=== PATIENT | male | born 1945 | race Caucasian/White ===

== ENCOUNTER 2019-10-31 15:35 | Outpatient (CLI) | payer MEDICARE, OTHER, SELFPAY ==
[2019-10-31 17:14] LABS: Alanine Aminotransferase 18 U/L (16-63); Albumin Level 3.7 g/dL (3.4-5.0); Alkaline Phosphatase 127 U/L (46-116); Anion Gap 12.9 mmol/L (7-16); Aspartate Amino Transferase 13 U/L (15-37); Bilirubin,Total 0.3 mg/dL (0.00-1.00); Blood Urea Nitrogen 21 mg/dL (7-18); Calcium 9.4 mg/dL (8.5-10.1); Carbon Dioxide 29 mmol/L (21-32); Chloride 103 mmol/L (98-108); Estimated Glomerular Filt Rate 60; Glucose 105 mg/dL (70-99); Osmolality Calculated 293 mOsm/kg (285-295); Potassium 4.9 mmol/L (3.5-5.1); Prostate Specific Antigen 4.3 ng/mL (< OR = 4.0); Sodium 140 mmol/L (136-145); Total Protein 7.2 g/dL (6.4-8.2)
== END 2019-10-31 15:36 | disposition home or self-care (01) ==
LOC: CHSLAB 15:41
PROVIDERS: PCP Nurse Practitioner Family; Visit Provider Urology
DX: R97.20 Elevated prostate specific antigen [PSA] (principal); N40.1 Benign prostatic hyperplasia with lower urinary tract symptoms
CPT/HCPCS: 36415; 80053; 84153

== ENCOUNTER 2020-02-06 08:55 | Outpatient (CLI) | payer MEDICARE, OTHER, SELFPAY ==
--- NOTE | ~2020-02-06 | CT_ITS ---
EXAMINATION:CT lung screening DATE: 02/06/2020 09:17 INDICATION: Personal history of tobacco dependence. Current smoker with 40 pack year history. TECHNIQUE: Computed tomography (CT) of the chest was performed without intravenous contrast. Automate d exposure control and iterative reconstruction technique were employed. The dose-length product (DLP ) was 361.24 mGy-cm. COMPARISON: Chest CT 06/27/2018 FINDINGS: There is mild emphysema. There is mild atelectasis bilaterally. There is a chronic 5 mm laith undglass nodule in right upper lobe. There is a chronic 4 mm groundglass nodule in left upper lobe. N o pleural effusion. The heart size is normal. No pericardial effusion. There are coronary artery calc ifications. There is bilateral gynecomastia. There is moderate thoracic spondylosis and severe lumbar spondylosis. IMPRESSION: 1. Lung-RADS category 2: Benign appearance or behavior. Continue annual screening with noncontrast lo w-dose chest CT in 12 months. Reviewed, dictated and finalized at location A. IMPRESSION: 1. Lung-RADS category 2: Benign appearance or behavior. Continue annual screeni ng with noncontrast low-dose chest CT in 12 months.
== END 2020-02-06 08:56 | disposition home or self-care (01) ==
PROVIDERS: PCP Nurse Practitioner Family; Visit Provider Nurse Practitioner Family
DX: Z12.2 Encounter for screening for malignant neoplasm of respiratory organs (principal); Z87.891 Personal history of nicotine dependence; R91.1 Solitary pulmonary nodule
CPT/HCPCS: G0297

== ENCOUNTER 2020-12-25 15:36 | Outpatient (CLI) | payer MEDICARE, OTHER, SELFPAY ==
[2020-12-25 17:04] LABS: Alanine Aminotransferase 21 U/L (16-63); Albumin Level 3.8 g/dL (3.4-5.0); Alkaline Phosphatase 128 U/L (46-116); Anion Gap 8 mmol/L (8-16); Aspartate Amino Transferase 12 U/L (15-37); Bilirubin,Total 0.3 mg/dL (0.00-1.00); Blood Urea Nitrogen 22 mg/dL (7-18); Calcium 9.8 mg/dL (8.5-10.1); Carbon Dioxide 30 mmol/L (21-32); Chloride 97 mmol/L (98-108); Estimated Glomerular Filt Rate 51; Glucose 89 mg/dL (70-99); Osmolality Calculated 282 mOsm/kg (285-295); Prostate Specific Antigen 3.8 ng/mL (< OR = 4.0); Sodium 135 mmol/L (136-145); Total Protein 7.8 g/dL (6.4-8.2)
== END 2020-12-25 15:37 | disposition home or self-care (01) ==
LOC: CHSLAB 15:41
PROVIDERS: PCP Nurse Practitioner Family; Visit Provider Urology
DX: R97.20 Elevated prostate specific antigen [PSA] (principal); N40.1 Benign prostatic hyperplasia with lower urinary tract symptoms
CPT/HCPCS: 36415; 80053; 84153

== ENCOUNTER 2021-08-10 14:20 | Outpatient (CLI) | payer MEDICARE, OTHER, SELFPAY ==
--- NOTE | 2021-08-10 14:22 | ECG_ITS ---
Measurements Intervals [place] Rate: 78 P: 71 AR: 192 QRS: 173 QRSD: 109 T: 74 QT: 386 QTc: 441 Interpretive Statements SINUS RHYTHM BORDERLINE R WAVE PROGRESSION, ANTERIOR LEADS BASELINE ARTIFACT- I, III, AVL BORDERLINE ECG Electronically Signed On 08-10-2021 15:08:23 LEGAL MANAGER by Javier Odonnell D.O.
== END 2021-08-10 14:21 | disposition home or self-care (01) ==
PROVIDERS: PCP Nurse Practitioner Family; Visit Provider Internal Medicine Cardiovascular Disease
DX: I25.10 Atherosclerotic heart disease of native coronary artery without angina pectoris (principal)
CPT/HCPCS: 93005

== ENCOUNTER 2021-08-20 10:26 | Outpatient (CLI) | payer MEDICARE, OTHER, SELFPAY ==
--- NOTE | 2021-08-20 10:28 | ECHO_ITS ---
Patient Info Name: Rony Ferreira Age: 75 years : 1945 Gender: Male Ht: 70 in Wt: 273 lbs BSA: 2.53 m2 HR: 70 bpm BP: 138 / 68 mmHg Technical Quality: Fair Exam Date: 08/20/2021 11:54 AM Exam Location: [facility] Patient Status: Outpatient Admit Date: 08/20/2021 Staff Ordering Physician: Javier Odonnell DO Computer Support Specialist: Sara Vargas Attending Provider: Javier Odonnell DO Referring Physician: Blas MARINELLI; Exam Type: CA echo doppler color flow Study Info Indications R06.00 - Dyspnea, unspecified Complete two-dimensional, color flow and Doppler transthoracic echocardiogram is performed. Summary 1. Complete two-dimensional, color flow and Doppler transthoracic echocardiogram is performed. 2. Left ventricular chamber dimension is normal. 3. Left ventricular systolic function is normal, estimated at 55-60%. 4. There is mildly increased left ventricular wall thickness. 5. The left ventricular diastolic function is grade I diastolic dysfunction. 6. E/e' 9 is minimally elevated. 7. No pulmonary hypertension, estimated pulmonary arterial systolic pressure is 26 mmHg. Left Ventricle E/e' 9 is minimally elevated. Left ventricular chamber dimension is normal. Left ventricular systolic function is normal, estimated at 55-60%. There is mildly increased left ventricular wall thickness. The left ventricular diastolic function is grade I diastolic dysfunction. Right Ventricle Right ventricular systolic function is normal and with normal TAPSE 2.2 cm. Right ventricular chamber dimension is normal. Left Atria Left atrial chamber dimension is normal. Right Atria Right atrial chamber dimension is normal. Aortic Valve The aortic valve is trileaflet. There is no aortic valve stenosis. There is no aortic valve regurgitation. Pulmonic Valve There is no pulmonic regurgitation. Mitral Valve There is no mitral valve stenosis. There is no mitral valve regurgitation. Tricuspid Valve There is no tricuspid valve regurgitation. No pulmonary hypertension, estimated pulmonary arterial systolic pressure is 26 mmHg. Pericardium/Pleural There is no pericardial effusion. Inferior Vena Cava Normal inferior vena cava with >50% collapse upon inspiration consistent with normal right atrial pressure, 5 mmHg. Aorta The aortic root size at the sinus of Valsalva is normal. Left Ventricular Outflow Tract Name Value Normal LVOT 2D LVOT Diameter 2.0 cm LVOT Doppler LVOT Peak Velocity 91 cm/s LVOT Peak Gradient 3 mmHg LVOT Mean Gradient 2 mmHg LVOT VTI 20 cm LVOT VTI/AV VTI Ratio 0.8 LVOT Stroke Volume 64 ml Mitral Valve Name Value Normal MV Doppler MV Decel [place] 355
[2021-08-20 11:15] LABS: Alanine Aminotransferase 14 U/L (16-63); Albumin Level 3.4 g/dL (3.4-5.0); Alkaline Phosphatase 143 U/L (46-116); Anion Gap 10 mmol/L (8-16); Aspartate Amino Transferase 11 U/L (15-37); Bilirubin,Total 0.3 mg/dL (0.00-1.00); Blood Urea Nitrogen 15 mg/dL (7-18); Calcium 9.1 mg/dL (8.5-10.1); Carbon Dioxide 28 mmol/L (21-32); Chloride 103 mmol/L (98-108); Cholesterol 83 mg/dL (0-200); Estimated Glomerular Filt Rate 58; Glucose 113 mg/dL (70-99); HDL Direct 34 mg/dL (40-60); LDL Cholesterol Calculated 30 mg/dL (<130); Osmolality Calculated 293 mOsm/kg (285-295); Potassium 4.3 mmol/L (3.5-5.1); Sodium 141 mmol/L (136-145); Total Protein 6.8 g/dL (6.4-8.2); Triglycerides 97 mg/dL (0-150)
== END 2021-08-20 10:27 | disposition home or self-care (01) ==
LOC: CHSIMG 10:28
PROVIDERS: PCP Nurse Practitioner Family; Visit Provider Internal Medicine Cardiovascular Disease
DX: E78.5 Hyperlipidemia, unspecified (principal); R06.00 Dyspnea, unspecified
CPT/HCPCS: 36415; 80053; 80061; 93306

== ENCOUNTER 2021-10-28 20:01 | Outpatient (CLI) | payer MEDICARE, OTHER, SELFPAY ==
--- NOTE | 2021-11-03 13:29 | WPDSLEEPSTUD ---
Sleep Study Date of Study: 10/28/21 Ordering Provider: Javier Odonnell DO Interpreting Physician: Kathy Luong MD Sleep Study Type: Polysomnogram Height: 1.83 m Weight: 127.006 kg Body Mass Index: 38.0 Neck Circumference (inches): 19.5 [place]: 7 Reason for Sleep Study Disrupted sleep, nighttime awakenings, daytime naps Sleep History Rony Platt is a 75-year-old man with a history of COPD. He was referred by his share holder because he has non restorative sleep. He wakes up throughout the night and has excessive daytime sleepiness. He occasionally awakens from sleep feeling short of breath. He rarely awakens at night with heartburn, belching or coughing. He rarely snores and rarely snores loudly enough that others complain about it. He rarely has trouble sleeping with a cold. He occasionally wakes up gasping for breath at night. He occasionally has breathing problems at night observed by others. He rarely sweats excessively at night. He does not notice his heart pounding or beating irregularly at night. He occasionally falls asleep during the day, rarely involuntarily, never while driving. He rarely has loss of muscle tone with strong emotion. He does not have daytime give difficulties due to excessive sleepiness or the feeling of paralysis on waking or falling asleep. He does not have vivid dreamlike scenes upon awakening or falling asleep. He frequently feels afraid to go to sleep. He occasionally has nightmares, occasionally remembers his dreams and occasionally has racing thoughts. He occasionally feels sad or depressed. He rarely has anxiety. He rarely has muscular tension. He does not notice parts of his body jerking and he does not kick at night. He occasionally has crawling and aching feelings in his legs. He occasionally has leg pain at night. He denies morning jaw pain. Occasionally grinds his teeth during sleep. He rarely is bothered by pain during the day, never awakened by pain at night. Occasionally wakes up feeling stiff in the morning with sore achy muscles and pain in the neck and spine. Has depression, sexual problems and fatigue. Normal bedtime is between 2:00 a.m. and 3:00 a.m., taking 20 minutes to fall asleep typically waking 2 or 3 times overnight. When he does awaken he may stay awake for 1 hour. He will go to the bathroom and smokes cigarettes. He wakes the morning at 8:00 a.m.. His weekend schedule is the same. He estimates getting between 4 and 6 hours of sleep at night. he takes naps throughout the day. A short nap is not refreshing. He is usually drowsy for 2 hours after waking. Habits: Tobacco 1 and half packs per day; caffeine 4 cups per day. Occasional alcohol. No recreational drugs. COUNTS INCLUDE 234 BEDS AT THE [facility] Past Medical History Medical History (Updated 11/03/21 @ 14:47 by Kathy Luong MD) Abdominal aortic aneurysm (AAA) Constipation COPD (chronic obstructive pulmonary disease) Elevated PSA HTN (hypertension) Male erectile dysfunction Osteoarthritis Ruptured disc, cervical Sinusitis Tobacco dependence Surgical History Surgical History History of appendectomy Age 15 History of coronary artery stent placement Family History Family History Other Unknown family medical history Social History Social History Smoking packs per day: 1.5 Smoking cigarettes per day: 30.0 Smoking status: Current every day smoker Tobacco type: cigarettes Alcohol intake: current Substance use: never Substance use type: does not use Gender identity (if verbalized by the patient): Male Medications Home Medications Medication Instructions Recorded Confirmed Type albuterol sulfate 90 mcg/actuation 1 puff INHALATION Q4H PRN 10/03/19 10/14/21 History aerosol inhaler aspirin 81 mg tablet,delayed 81 mg PO DAILY 0
[2021-11-03 14:49] VITALS: BMI 38.0
== END 2021-10-29 19:49 | disposition home or self-care (01) ==
LOC: CHSCSM 20:03
PROVIDERS: PCP Nurse Practitioner Family; Visit Provider Internal Medicine Cardiovascular Disease
DX: G47.10 Hypersomnia, unspecified (principal)
CPT/HCPCS: 95810

== ENCOUNTER 2021-12-24 14:06 | Outpatient (CLI) | payer MEDICARE, SELFPAY ==
[2021-12-24 15:39] LABS: Alanine Aminotransferase 16 U/L (16-63); Albumin Level 3.6 g/dL (3.4-5.0); Alkaline Phosphatase 138 U/L (46-116); Anion Gap 8 mmol/L (8-16); Aspartate Amino Transferase 14 U/L (15-37); Bilirubin,Total 0.4 mg/dL (0.00-1.00); Blood Urea Nitrogen 15 mg/dL (7-18); Calcium 9.5 mg/dL (8.5-10.1); Carbon Dioxide 29 mmol/L (21-32); Chloride 99 mmol/L (98-108); Estimated Glomerular Filt Rate 55; Glucose 97 mg/dL (70-99); Osmolality Calculated 282 mOsm/kg (285-295); Potassium 4.9 mmol/L (3.5-5.1); Prostate Specific Antigen 3.6 ng/mL (< OR = 4.0); Sodium 136 mmol/L (136-145); Total Protein 6.9 g/dL (6.4-8.2)
== END 2021-12-24 14:07 | disposition home or self-care (01) ==
LOC: CHSLAB 14:08
PROVIDERS: PCP Nurse Practitioner Family; Visit Provider Urology
DX: N40.1 Benign prostatic hyperplasia with lower urinary tract symptoms (principal)
CPT/HCPCS: 36415; 80053; 84153

== ENCOUNTER 2021-12-31 10:25 | Outpatient (CLI) | payer MEDICARE, OTHER, SELFPAY ==
--- NOTE | ~2021-12-31 | CT_ITS ---
EXAMINATION: CT lung screening DATE: 12/31/2021 10:54 INDICATION: Personal history of nicotine dependence, current smoker with 75 pack year history TECHNIQUE: Computed tomography (CT) of the chest was performed without intravenous contrast. The dose -length product (DLP) was 357.89 mGy-cm. Automated exposure control and iterative reconstruction tech [employer] were employed. COMPARISON: 02/06/2020 FINDINGS: There is mild emphysema. There is mild atelectasis. A chronic 5 mm nodule is present in the left upper lobe. There is a 2 mm nodule in the left upper lobe on image 58. A previously described g roundglass nodule of the left upper lobe not definitely identified. The lungs are free of focal airsp trace opacities. There is no pleural effusion or pneumothorax. No pathologically enlarged thoracic lymp h nodes are identified. The heart size is normal. Calcified coronary artery atherosclerosis is noted. There is moderate thoracic spondylosis. Stable low-attenuation masses of the adrenal glands are cons istent with adenomas. IMPRESSION: 1. Lung-RADS category 2: Benign appearance or behavior. Continue annual screening with noncontrast lo w-dose chest CT in 12 months. Reviewed, dictated and finalized at location F. IMPRESSION: 1. Lung-RADS category 2: Benign appearance or behavior. Continue annual screeni ng with noncontrast low-dose chest CT in 12 months.
== END 2021-12-31 10:26 | disposition home or self-care (01) ==
LOC: CHSIMG 10:28
PROVIDERS: PCP Nurse Practitioner Family; Visit Provider Nurse Practitioner Family
DX: Z12.2 Encounter for screening for malignant neoplasm of respiratory organs (principal); Z87.891 Personal history of nicotine dependence
CPT/HCPCS: 71271

== ENCOUNTER 2022-11-16 12:33 | Outpatient (CLI) | payer MEDICARE, OTHER, SELFPAY ==
--- NOTE | ~2022-11-16 | US_ITS ---
EXAMINATION: US arterial ankle brachial ind DATE: 11/16/2022 14:07 INDICATION: Swelling and erythema at the right calf and foot. TECHNIQUE: Segmental pressures and plethysmographic and Doppler waveforms of the brachial and lower e xtremity arteries were obtained. COMPARISON: None. FINDINGS: Right and left brachial artery pressures of 112 mm Hg and 101 mm Hg, respectively, are concordant (no rmal difference <= 30 mmHg). The right ankle-brachial index (CHRIS) is 1.27 (normal >= 0.9-1.0). The right great toe-brachial index (TBI) is 0.54 (normal >= 0.65). Arterial Doppler waveforms are triphasic with brisk systolic upstroke s at both right posterior tibial and dorsalis pedis arteries. The left CHRIS is 1.13. The left TBI is 0.89. Arterial Doppler waveforms are biphasic with brisk systol ic upstrokes at both left posterior tibial and dorsalis pedis arteries. IMPRESSION: 1. Mild arterial occlusive disease to the right lower limb with normal right CHRIS but mildly decreased right TBI. 2. No significant arterial occlusive disease to the left lower limb with normal left CHRIS and TBI. Reviewed, dictated and finalized at location L. IMPRESSION: 1. Mild arterial occlusive disease to the right lower limb with normal right AB I but mildly decreased right TBI. 2. No significant arterial occlusive disease to the left lower limb with normal left CHRIS and TBI.
--- NOTE | ~2022-11-16 | US_ITS ---
EXAMINATION: US venous doppler LE RT DATE: 11/16/2022 14:07 INDICATION: Right calf and foot redness and swelling. TECHNIQUE: Grayscale images without and with compression and Doppler images of the right lower extrem ity veins were obtained. COMPARISON: None FINDINGS: The right common femoral vein, profunda (deep) femoral vein, femoral vein, popliteal vein, peroneal v ein, posterior tibial veins, gastrocnemius vein, and greater saphenous vein are patent. IMPRESSION: 1. Patent right lower extremity veins. No evidence of deep venous thrombosis. Reviewed, dictated and finalized at location K.
--- NOTE | ~2022-11-16 | US_ITS ---
EXAMINATION: US arterial duplex LE RT DATE: 11/16/2022 14:07 INDICATION: Other specified soft tissue disorders. Right calf redness and erythema. TECHNIQUE: Multiple grayscale and Doppler ultrasound images of the right lower limb were obtained. COMPARISON: None FINDINGS: Peak systolic velocity is 100 cm/s in right common femoral artery, 64 cm per sec in right p rofunda femoral artery, 92 cm/s in proximal superficial femoral artery, 74 cm/s in mid superficial fe moral artery, and 69 cm/s in distal superficial femoral artery, 78 cm/s in popliteal artery, 71 cm/s in posterior tibial artery, 62 cm/s anterior tibial artery, and 95 cm/s in peroneal artery. IMPRESSION: 1. No significant arterial occlusive disease. Reviewed, dictated and finalized at location A.
== END 2022-11-16 12:34 | disposition home or self-care (01) ==
LOC: CHSIMG 12:37
PROVIDERS: PCP Nurse Practitioner Family; Visit Provider Internal Medicine Cardiovascular Disease
DX: L53.9 Erythematous condition, unspecified (principal); M79.89 Other specified soft tissue disorders
CPT/HCPCS: 93922; 93926; 93971

== ENCOUNTER 2023-01-03 10:06 | Outpatient (CLI) | payer MEDICARE, OTHER, SELFPAY ==
--- NOTE | ~2023-01-03 | CT_ITS ---
EXAMINATION: CT lung screening DATE: 01/03/2023 10:43 INDICATION: hx of lung nodule. yearly follow up. [place],COPD,CHRONIC SOB TECHNIQUE: Computed tomography (CT) of the chest was performed without intravenous contrast. Addition al 3D reconstructions utilizing coronal maximum intensity projection (MIP) were performed. Automated exposure control and iterative reconstruction technique were employed. The dose-length product was 30 9.64 mGy-cm. COMPARISON: 12/31/2021 FINDINGS: Mild emphysema. Unchanged chronic discoid atelectasis/scarring at the lingula and at the posterior carpio lcus of the right lower lobe. Interval increase in size of a previously 6-7 mm subsolid appearing nod ule along a very small band of discoid atelectasis in the anterior right middle lobe now measuring 8 mm with spiculated margins and with more solid appearance. No interval change in a 2-3 mm left upper lobe nodule on image 52 or the 4-5 mm pleural-based along the posterior superior segment of the right lower lobe on image 60. No new pulmonary nodules, pneumonia, pulmonary edema, pleural effusion or pn eumothorax. Heart size is normal. Atherosclerotic coronary artery calcific lesions. No pericardial ef fusion. Thoracic aorta is normal in caliber. No pathologically enlarged thoracic lymphadenopathy. Unc hanged small low-attenuation bilateral adrenal adenomas, the larger on the right measuring 1.5 cm. Se jay spondylosis in the lower thoracic and upper lumbar spine. IMPRESSION: 1. Interval enlargement of a now 8 mm solid-appearing, previously 6-7 mm subsolid appearing nodule in the right middle lobe, Lung-RADS category 4X: (Very suspicious, >15% chance of malignancy) PET-CT an d/or tissue sampling with CT-guided percutaneous biopsy depending on probably of malignancy and comor bidities. Reviewed, dictated and finalized at location B. IMPRESSION: 1. Interval enlargement of a now 8 mm solid-appearing, previously 6-7 mm subsol id appearing nodule in the right middle lobe, Lung-RADS category 4X: (Very susp icious, >15% chance of malignancy) PET-CT and/or tissue sampling with CT-guided percutaneous biopsy depending on probably of malignancy and comorbidities.
== END 2023-01-03 10:07 | disposition home or self-care (01) ==
LOC: CHSIMG 10:07
PROVIDERS: PCP Nurse Practitioner Family; Visit Provider Nurse Practitioner Family
DX: Z12.2 Encounter for screening for malignant neoplasm of respiratory organs (principal); Z87.891 Personal history of nicotine dependence; R91.8 Other nonspecific abnormal finding of lung field
CPT/HCPCS: 71271

== ENCOUNTER 2023-01-11 12:58 | Outpatient (CLI) | payer MEDICARE, OTHER, SELFPAY ==
--- NOTE | ~2023-01-11 | PE_ITS ---
EXAMINATION: PET skull to mid thigh DATE: 01/11/2023 15:23 INDICATION: Enlarging pulmonary nodule TECHNIQUE: Blood glucose level was 122 mg/dL. 11.069 mCi of 18-fluorodeoxyglucose (18-FDG) was admini stered i.v. Low dose computed tomography (CT) images were acquired from the base of the brain to the proximal thighs for attenuation correction and anatomic localization. Positron emission tomography (P ET) images were acquired in the same distribution beginning 59 minutes after injection. Images includ ing fused PET/CT images were reconstructed in axial, coronal, and sagittal planes. Automated exposure control technique was employed. The dose-length product was 1233.32mGy-cm. COMPARISON: None FINDINGS: Head/neck: There is relatively symmetric increased activity in the oral cavity, palatine tonsils, parotid glands and submandibular glands without CT correlate, likely physiologic. There is additional likely physio logic relatively symmetric muscular activity most prominent in the muscles of mastication as well as the tongue including extending posteriorly along the right base of the tongue but also involving the ocular muscles, laryngeal muscles and posterior cervical paraspinal muscles right slightly greater th an left. No pathologically enlarged cervical lymphadenopathy or suspicious foci of increased FDG upta ke in the visualized head or neck. Severe lower cervical spondylosis. No suspicious lytic, blastic or abnormally FDG avid bone lesions. Chest: There is additional extensive likely physiologic muscular activity throughout the thoracic paraspinal musculature as well as the musculature of the shoulder girdles, left greater than right. Synovial up take at the left glenohumeral joint which likely reactive related to the severe left glenohumeral ost eoarthritis. There is no discernible FDG activity associated with the millimeter right middle lobe no dule. Linear band of discoid atelectasis without FDG activity at the lingula. Heart size is normal. N o pericardial effusion. No pathologically enlarged or FDG avid thoracic lymphadenopathy. Bilateral gy necomastia. Moderate to severe thoracic spondylosis. No suspicious lytic, blastic or abnormally FDG a vid bone lesions. Abdomen/pelvis/proximal thighs: Physiologic renal accumulation and excretion of FDG activity in the kidneys, bladder and along portio ns of ureters. Normal degree and heterogenous pattern of increased uptake throughout the liver withou t radiologic correlate or dominant FDG avid lesion. The gallbladder, pancreas, and spleen are normal. No abnormal uptake associated with bilateral small low-attenuation adrenal adenomas the largest on t he right measuring 1.5 cm. Mild uptake scattered throughout the bowels without radiologic correlate, also likely physiologic. Infrarenal aortobiiliac endoluminal stent grafting. No associated aneurysm. Additional likely physiologic muscular activity in the bilateral gluteal musculature and the musculat ure at the bilateral hands and forearms. No other abnormal foci of increased FDG uptake or pathologic ally enlarged lymphadenopathy in the abdomen, pelvis or proximal thighs. Moderate to severe lumbar sp ondylosis. Severe right hip osteoarthritis. No suspicious lytic, blastic or abnormally FDG avid bone lesions. IMPRESSION: 1. No discernible FDG activity associated with the 8 mm right middle lobe nodule. While reassuring th is does not absolutely exclude malignancy and would recommend continued radiographic follow-up with l ow-dose noncontrast chest CT in 6 months. Reviewed, dictated and finalized at location A. IMPRESSION: 1. No discernible FDG activity associated with the 8 mm right middle lobe nodul e. While reassuring this does not absolutely exclude malignancy and would recom mend continued radiog
[2023-01-11 13:54] LABS: Glucose Point of Care 122 mg/dl (65-105)
== END 2023-01-11 12:59 | disposition home or self-care (01) ==
PROVIDERS: PCP Nurse Practitioner Family; Visit Provider Nurse Practitioner Family
DX: R91.1 Solitary pulmonary nodule (principal)
CPT/HCPCS: 78815; A9552

== ENCOUNTER 2023-01-19 14:10 | Outpatient (CLI) | payer MEDICARE, OTHER, SELFPAY ==
[2023-01-19 15:03] LABS: Alanine Aminotransferase 16 U/L (16-63); Albumin Level 3.6 g/dL (3.4-5.0); Alkaline Phosphatase 126 U/L (46-116); Anion Gap 6 mmol/L (8-16); Aspartate Amino Transferase 14 U/L (15-37); Bilirubin,Total 0.3 mg/dL (0.00-1.00); Blood Urea Nitrogen 24 mg/dL (7-18); Calcium 9.8 mg/dL (8.5-10.1); Carbon Dioxide 32 mmol/L (21-32); Chloride 99 mmol/L (98-108); Estimated Glomerular Filt Rate 47; Glucose 120 mg/dL (70-99); Osmolality Calculated 289 mOsm/kg (285-295); Potassium 4.9 mmol/L (3.5-5.1); Prostate Specific Antigen 5.5 ng/mL (< OR = 4.0); Sodium 137 mmol/L (136-145); Total Protein 7.2 g/dL (6.4-8.2)
== END 2023-01-19 14:11 | disposition home or self-care (01) ==
LOC: CHSLAB 14:14
PROVIDERS: PCP Nurse Practitioner Family; Visit Provider Urology
DX: N40.1 Benign prostatic hyperplasia with lower urinary tract symptoms (principal)
CPT/HCPCS: 36415; 80053; 84153

== ENCOUNTER 2023-05-16 10:42 | Outpatient (CLI) | payer MEDICARE, SELFPAY ==
[2023-05-16 11:21] LABS: Cholesterol 140 mg/dL (0-200); HDL Direct 36 mg/dL (40-60); LDL Cholesterol Calculated 75 mg/dL (<130); Triglycerides 143 mg/dL (0-150)
== END 2023-05-16 10:43 | disposition home or self-care (01) ==
LOC: CHSLAB 10:44
PROVIDERS: PCP Nurse Practitioner Family; Visit Provider Internal Medicine Cardiovascular Disease
DX: I25.10 Atherosclerotic heart disease of native coronary artery without angina pectoris (principal)
CPT/HCPCS: 36415; 80061

== ENCOUNTER 2023-09-29 15:23 | Outpatient (CLI) | payer MEDICARE, SELFPAY ==
[2023-09-29 15:32] LABS: Basophils Absolute Auto 0.05 K/mm3 (0.00-0.10); Basophils Percent Auto 0.5 % (0.0-1.0); Eosinophils Percent Auto 0.9 % (1.0-6.0); Hematocrit 38.3 % (37.0-46.0); Immature Granulocyte Absolute 0.07 K/mm3 (0.00-0.00); Immature Granulocyte Percent A 0.6 % (0.0-0.0); Lymphocytes Absolute Auto 1.74 K/mm3 (1.10-4.50); Lymphocytes Percent Auto 15.7 % (18.0-42.0); Mean Corpuscular HGB Conc 28.7 g/dL (32.0-36.0); Mean Corpuscular Hemoglobin 23.7 pg (27.0-31.0); Mean Corpuscular Volume 82.5 fL (78.0-102.0); Mean Platelet Volume 9.5 fl (8.7-11.0); Monocytes Absolute Auto 0.86 K/mm3 (0.10-0.90); Monocytes Percent Auto 7.7 % (2.0-11.0); Neutrophils Absolute Auto 8.3 K/mm3 (1.7-7.2); Neutrophils Percent Auto 74.6 % (50.0-70.0); Platelet Count Result 352 K/mm3 (150-420); Red Blood Count 4.64 M/mm3 (4.70-6.10); Red Cell Distribution Width 21.5 % (11.6-14.4); White Blood Count 11.1 K/mm3 (4.8-10.8)
[2023-09-29 16:08] LABS: Alanine Aminotransferase 19 U/L (16-63); Albumin Level 3.3 g/dL (3.4-5.0); Alkaline Phosphatase 124 U/L (46-116); Anion Gap 9 mmol/L (8-16); Aspartate Amino Transferase 16 U/L (15-37); Bilirubin,Total 0.4 mg/dL (0.00-1.00); Blood Urea Nitrogen 31 mg/dL (7-18); Calcium 9.5 mg/dL (8.5-10.1); Carbon Dioxide 28 mmol/L (21-32); Chloride 99 mmol/L (98-108); Estimated Glomerular Filt Rate 53; Glucose 142 mg/dL (70-99); NT Pro B Type Natriuretic Pept 1550 pg/mL (0-450); Osmolality Calculated 290 mOsm/kg (285-295); Potassium 4.8 mmol/L (3.5-5.1); Sodium 136 mmol/L (136-145); Total Protein 6.7 g/dL (6.4-8.2)
[2023-10-03 21:07] LABS: Vitamin D 25 Hydroxy 14 ng/mL (30-100)
== END 2023-09-29 15:24 | disposition home or self-care (01) ==
LOC: CHSLAB 15:25
PROVIDERS: PCP Nurse Practitioner Family; Visit Provider Nurse Practitioner Family
DX: E78.5 Hyperlipidemia, unspecified (principal); Z79.899 Other long term (current) drug therapy; I50.9 Heart failure, unspecified; I10 Essential (primary) hypertension
CPT/HCPCS: 36415; 80053; 82306; 83735; 83880; 85025

== ENCOUNTER 2023-10-10 09:31 | Outpatient (CLI) | payer MEDICARE, OTHER, SELFPAY ==
--- NOTE | 2023-10-10 09:36 | ECHO_ITS ---
Patient Info Name: oRny Ferreira Age: 77 years : 1945 Gender: Male Ht: 72 in Wt: 224 lbs BSA: 2.30 m2 HR: 55 bpm BP: 84 / 60 mmHg Heart Rhythm: Sinus Rhythm Technical Quality: Good Exam Date: 10/10/2023 10:33 AM Exam Location: Echo Lab Patient Status: Outpatient Admit Date: 10/10/2023 Staff Ordering Physician: Javier Odonnell DO Ticket Dispatcher: Hernandez Womack RDCS Attending Provider: Javier Odonnell DO Referring Physician: Blas MARINELLI; Exam Type: CA echo doppler color flow Study Info Indications - SOB, UNSPCIFIED Complete two-dimensional, color flow and Doppler transthoracic echocardiogram is performed. Summary 1. Complete two-dimensional, color flow and Doppler transthoracic echocardiogram is performed. 2. Left ventricular chamber dimension is normal. 3. Left ventricular systolic function is normal, estimated at 60-65%. 4. There is mild concentric increased left ventricular wall thickness. 5. The left ventricular diastolic function is grade I diastolic dysfunction. 6. E/e' 13 is mildly elevated. 7. No pulmonary hypertension, estimated pulmonary arterial systolic pressure is 14 mmHg. Left Ventricle E/e' 13 is mildly elevated. Left ventricular chamber dimension is normal. Left ventricular systolic function is normal, estimated at 60-65%. There is mild concentric increased left ventricular wall thickness. The left ventricular diastolic function is grade I diastolic dysfunction. Right Ventricle Right ventricular systolic function is normal and with normal TAPSE 2.7 cm. Right ventricular chamber dimension is normal. Left Atria Left atrial chamber dimension is normal. Right Atria Right atrial chamber dimension is normal. Aortic Valve The aortic valve is trileaflet. There is no aortic valve stenosis. There is no aortic valve regurgitation. Pulmonic Valve There is no pulmonic regurgitation. Mitral Valve There is no mitral valve stenosis. There is no mitral valve regurgitation. Tricuspid Valve There is no tricuspid valve regurgitation. No pulmonary hypertension, estimated pulmonary arterial systolic pressure is 14 mmHg. Pericardium/Pleural There is no pericardial effusion. Inferior Vena Cava Normal inferior vena cava with >50% collapse upon inspiration consistent with normal right atrial pressure, 5 mmHg. Aorta The aortic root size at the sinus of Valsalva is normal. Left Ventricular Outflow Tract Name Value Normal LVOT 2D LVOT Diameter 2.1 cm LVOT Doppler LVOT Peak Velocity 95 cm/s LVOT Peak Gradient 4 mmHg LVOT Mean Gradient 2 mmHg LVOT VTI 26 cm LVOT VTI/AV VTI Ratio 0.8 LVOT Stroke Volume 88 ml Pulmonic Valve Name Value Normal RVOT Doppler RVOT Peak Gradient 1 mmHg PV Doppler
== END 2023-10-10 09:32 | disposition home or self-care (01) ==
LOC: CHSIMG 09:32
PROVIDERS: PCP Nurse Practitioner Family; Visit Provider Internal Medicine Cardiovascular Disease
DX: R06.00 Dyspnea, unspecified (principal)
CPT/HCPCS: 93306

== ENCOUNTER 2023-12-08 11:59 | Outpatient (CLI) | payer MEDICARE, SELFPAY ==
[2023-12-15 00:09] LABS: Vitamin D 25 Hydroxy 64 ng/mL (30-100)
== END 2023-12-08 12:00 | disposition home or self-care (01) ==
LOC: CHSLAB 12:01
PROVIDERS: PCP Nurse Practitioner Family; Visit Provider Nurse Practitioner Family
DX: Z92.29 Personal history of other drug therapy (principal); Z79.899 Other long term (current) drug therapy
CPT/HCPCS: 36415; 82306

== ENCOUNTER 2024-01-10 10:25 | Outpatient (CLI) | payer MEDICARE, OTHER, SELFPAY ==
--- NOTE | ~2024-01-10 | CT_ITS ---
CT Scan of the Chest without Contrast: Clinical Indication: Lung cancer screening, nicotine dependence Technique: Contiguous sections were acquired throughout the chest without intravenous contrast. Dose reduction technique was used on this scan by utilizing automated exposure control and iterative recon struction technique. The dose-length product (DLP) was 197.22 mGy-cm. Findings: There is no evidence of any significant mediastinal, hilar or axillary lymphadenopathy. The mediastin al soft tissues appear normal. There is no evidence of pleural or pericardial effusion. Stable 9 mm irregular nodule at the anteromedial right middle lobe. Stable 4 mm pleural-based nodule right lower lobe. Images through the upper abdomen reveal no abnormalities. Impression: Lung RADS 2: Benign appearance. 12 month follow-up screening CT advised. Reviewed, dictated and finalized at location . Impression: Lung RADS 2: Benign appearance. 12 month follow-up screening CT advised.
== END 2024-01-10 10:26 | disposition home or self-care (01) ==
LOC: CHSIMG 10:26
PROVIDERS: PCP Nurse Practitioner Family; Visit Provider Nurse Practitioner Family
DX: Z12.2 Encounter for screening for malignant neoplasm of respiratory organs (principal); R91.8 Other nonspecific abnormal finding of lung field; R91.1 Solitary pulmonary nodule; Z87.891 Personal history of nicotine dependence
CPT/HCPCS: 71271

== ENCOUNTER 2024-01-27 08:37 | Outpatient (CLI) | payer MEDICARE, OTHER, SELFPAY ==
[2024-01-27 09:37] LABS: Alanine Aminotransferase 22 U/L (16-63); Albumin Level 3.4 g/dL (3.4-5.0); Alkaline Phosphatase 128 U/L (46-116); Anion Gap 9 mmol/L (4-12); Aspartate Amino Transferase 16 U/L (15-37); Bilirubin,Total 0.3 mg/dL (0.00-1.00); Blood Urea Nitrogen 26 mg/dL (7-18); Calcium 9.1 mg/dL (8.5-10.1); Carbon Dioxide 27 mmol/L (21-32); Chloride 102 mmol/L (98-108); Estimated Glomerular Filt Rate 46; Glucose 123 mg/dL (70-99); Osmolality Calculated 291 mOsm/kg (285-295); Potassium 4.4 mmol/L (3.5-5.1); Prostate Specific Antigen 7.4 ng/mL (< OR = 4.0); Sodium 138 mmol/L (136-145); Total Protein 6.6 g/dL (6.4-8.2)
== END 2024-01-27 08:38 | disposition home or self-care (01) ==
LOC: CHSLAB 08:39
PROVIDERS: PCP Nurse Practitioner Family; Visit Provider Urology
DX: R97.20 Elevated prostate specific antigen [PSA] (principal); N40.1 Benign prostatic hyperplasia with lower urinary tract symptoms
CPT/HCPCS: 36415; 80053; 84153

== ENCOUNTER 2024-06-06 09:57 | Outpatient (CLI) | payer MEDICARE, OTHER, SELFPAY ==
--- NOTE | ~2024-06-06 | US_ITS ---
EXAMINATION:US venous doppler LE RT INDICATION:Right calf and foot redness and swelling TECHNIQUE: Multiple grayscale, color flow and Doppler images of the right lower extremity deep venous systems were obtained and reviewed. COMPARISON:No prior studies for comparison. FINDINGS: The common femoral, superficial femoral and popliteal veins demonstrate normal respiratory variation, augmentation and compressibility. Color flow is also seen within the posterior tibial, pe roneal, greater saphenous and profunda veins. IMPRESSION: 1: No lower extremity deep venous thrombosis. Reviewed, dictated and finalized at location B.
== END 2024-06-06 09:58 | disposition home or self-care (01) ==
PROVIDERS: PCP Nurse Practitioner Family; Visit Provider Internal Medicine Cardiovascular Disease
DX: M79.89 Other specified soft tissue disorders (principal)
CPT/HCPCS: 93971

== ENCOUNTER 2024-06-13 14:27 | Outpatient (CLI) | payer MEDICARE, OTHER, SELFPAY ==
--- NOTE | ~2024-06-13 | CT_ITS ---
EXAMINATION: CTA chest PE protocol DATE: 06/13/2024 18:01 CDT INDICATION: Shortness of breath with leg swelling TECHNIQUE: Computed tomographic angiography (CTA) of the chest was performed with 100 mL Omnipaque-35 0 intravenous contrast. The dose-length product was 832.98 mGy-cm. Maximum intensity projection 3D-re constructions of the aorta and other arteries were constructed by the technologist on a separate work station. COMPARISON: 01/10/2024 FINDINGS: No filling defect is identified within the main or proximal pulmonary arteries. Limited evaluation of the subsegmental pulmonary arteries secondary to motion artifact. The lungs are clear. Degenerative disease within the thoracic spine, with osteophyte formation, disc space narrowing, endp late changes and vacuum phenomena. No lytic or blastic lesions are appreciated. The heart is enlarged, without pericardial effusion. Multiple nonpathologically enlarged lymph nodes are identified within the mediastinum, without suspic ious morphology. The thoracic aorta is unremarkable. The main pulmonary artery is enlarged suggesting pulmonary hypertension. Limited evaluation of the abdomen demonstrates reflux of contrast into the hepatic veins. Additionally, the gallbladder is minimally distended, but otherwise unremarkable. Stent graft is appreciated within the abdominal aorta. IMPRESSION: No filling defect within the main or proximal pulmonary arteries. The lungs are clear. Findings suggesting pulmonary hypertension. Gallbladder distention without surrounding inflammatory change. Reflux of intravenous contrast into the hepatic veins, suggesting a component of right heart failure. Reviewed, dictated and finalized at location A. IMPRESSION: No filling defect within the main or proximal pulmonary arteries. The lungs are clear. Findings suggesting pulmonary hypertension. Gallbladder distention without surrounding inflammatory change. Reflux of intravenous contrast into the hepatic veins, suggesting a component o f right heart failure.
--- NOTE | ~2024-06-13 | XR_ITS ---
XR chest 2V 06/13/2024 14:55 Indication: Preprocedural examination Procedure: 2 view chest Comparison: 06/08/2018 Findings: mild cardiomegaly. No focal air space disease, pulmonary edema, pleural effusion or suspect ed pneumothorax. The lungs are hyperinflated which is consistent with, but not diagnostic of chronic obstructive pulmonary disease. Impression: 1: No acute cardiopulmonary disease. Reviewed, dictated and finalized at location B. Impression: 1: No acute cardiopulmonary disease.
[2024-06-13 14:42] LABS: Basophils Absolute Auto 0.06 K/mm3 (0.00-0.10); Basophils Percent Auto 0.5 % (0.0-1.0); Eosinophils Absolute Auto 0.14 K/mm3 (0.02-0.50); Eosinophils Percent Auto 1.3 % (1.0-6.0); Hematocrit 30.5 % (37.0-46.0); Hemoglobin 8.6 g/dL (12.4-15.3); Immature Granulocyte Absolute 0.03 K/mm3 (0.00-0.00); Immature Granulocyte Percent A 0.3 % (0.0-0.0); Lymphocytes Absolute Auto 1.47 K/mm3 (1.10-4.50); Lymphocytes Percent Auto 13.3 % (18.0-42.0); Mean Corpuscular HGB Conc 28.2 g/dL (32-36); Mean Corpuscular Hemoglobin 25.2 pg (27.0-31.0); Mean Corpuscular Volume 89.4 fL (78.0-102.0); Mean Platelet Volume 9.1 fl (8.7-11.0); Monocytes Absolute Auto 0.87 K/mm3 (0.10-0.90); Monocytes Percent Auto 7.9 % (2.0-11.0); Neutrophils Absolute Auto 8.46 K/mm3 (1.70-7.20); Neutrophils Percent Auto 76.7 % (50.0-70.0); Platelet Count Result 278 K/mm3 (150-420); Red Blood Count 3.41 M/mm3 (4.70-6.10); Red Cell Distribution Width 14.8 % (11.6-14.4)
[2024-06-13 15:04] LABS: D Dimer 0.61 mg/L (0.19-0.50)
[2024-06-13 15:31] LABS: Alanine Aminotransferase 19 U/L (16-63); Albumin Level 3.1 g/dL (3.4-5.0); Alkaline Phosphatase 154 U/L (46-116); Anion Gap 3 mmol/L (4-12); Aspartate Amino Transferase 14 U/L (15-37); Bilirubin,Total 0.3 mg/dL (0.00-1.00); Blood Urea Nitrogen 21 mg/dL (7-18); Calcium 9.2 mg/dL (8.5-10.1); Carbon Dioxide 37 mmol/L (21-32); Chloride 99 mmol/L (98-108); Estimated Glomerular Filt Rate 52; Glucose 111 mg/dL (70-99); NT Pro B Type Natriuretic Pept 128 pg/mL (0-450); Osmolality Calculated 292 mOsm/kg (285-295); Potassium 4.6 mmol/L (3.5-5.1); Sodium 139 mmol/L (136-145); Total Protein 6.4 g/dL (6.4-8.2)
[2024-06-13 18:10] LABS: Ferritin 8 ng/mL (26-388); Iron 35 ug/dL (65-175); Percent Iron Saturation 9 % (12-57)
== END 2024-06-13 14:28 | disposition home or self-care (01) ==
PROVIDERS: PCP Nurse Practitioner Family; Visit Provider Nurse Practitioner Family
DX: Z01.818 Encounter for other preprocedural examination (principal); I10 Essential (primary) hypertension; L53.9 Erythematous condition, unspecified; I50.9 Heart failure, unspecified; J44.9 Chronic obstructive pulmonary disease, unspecified; R06.02 Shortness of breath; D64.9 Anemia, unspecified; R79.89 Other specified abnormal findings of blood chemistry
CPT/HCPCS: 36415; 71046; 71275; 80053; 82728; 83540; 83550; 83880; 85025; 85380; Q9967

== ENCOUNTER 2024-06-29 12:59 | Outpatient (CLI) | payer MEDICARE, OTHER, SELFPAY ==
--- NOTE | 2024-06-29 13:25 | PC.NURSE ---
Patient here for venofer infusion. Patient tolerated IV start well. Resting in chair with BLE elevated. Waiting on medication from phamacy. Patient provided with call light and instructed how to use.
[2024-06-29 13:29] VITALS: BP 123/69; PULSE 78; RESP 18; TEMP 36.6; O2SAT 95; BMI 34.6
[2024-06-29] MEDS: IRON SUCROSE COMPLEX 200 MG, IRON SUCROSE COMPLEX 100 MG in SODIUM CHLORIDE 0.9% IV 250 ML 125 MG IVPB (14:07)
--- NOTE | 2024-06-29 15:40 | PC.NURSE ---
Patient tolerating infusion well. Assisted to ambulate to bathroom and back to bed. Sitting up at side of bed resting. Call light and belongings at side.
--- NOTE | 2024-06-29 16:25 | PC.NURSE ---
Patient tolerated infusion well. IV site removed, tip intact. Dressing applied to site. Patient denies any questions at discharge. This nurse accompanied patient to front door via wheelchair, patient left via private vehicle.
== END 2024-06-29 16:25 | disposition home or self-care (01) ==
PROVIDERS: PCP Nurse Practitioner Family; Visit Provider Nurse Practitioner Family
DX: D50.9 Iron deficiency anemia, unspecified (principal)
CPT/HCPCS: 96365; 96366; J1756; J7050

== ENCOUNTER 2024-07-02 12:51 | Outpatient (CLI) | payer MEDICARE, OTHER, SELFPAY ==
--- NOTE | 2024-07-02 13:05 | PC.NURSE ---
Resident in room 202, IV started to left hand, resident tolerated well.
[2024-07-02] MEDS: IRON SUCROSE COMPLEX 200 MG, IRON SUCROSE COMPLEX 100 MG in SODIUM CHLORIDE 0.9% IV 250 ML 125 MG IVPB (13:34)
[2024-07-02 13:52] VITALS: BMI 35.2
[2024-07-02 14:08] VITALS: BP 119/58; PULSE 77; RESP 18; TEMP 36.6; O2SAT 94
--- NOTE | 2024-07-02 14:10 | PC.NURSE ---
Patient tolerating infusion well. Ambulated to bathroom and back. Deneis any further needs. Call light at side.
--- NOTE | 2024-07-02 15:40 | PC.NURSE ---
Patient tolerated infusion well. IV site removed, tip intact. dressing applied to site. Patient discharged home. Patient accompanied to front door via wheelchair by this nurse, left in private vehicle. Next appt for afternoon, patient denies any questions at discharge.
== END 2024-07-02 12:52 | disposition home or self-care (01) ==
PROVIDERS: PCP Nurse Practitioner Family; Visit Provider Nurse Practitioner Family
DX: D50.9 Iron deficiency anemia, unspecified (principal)
CPT/HCPCS: 96365; 96366; J1756; J7050

== ENCOUNTER 2024-07-06 13:06 | Outpatient (CLI) | payer MEDICARE, OTHER, SELFPAY ==
[2024-07-06] MEDS: IRON SUCROSE COMPLEX 200 MG, IRON SUCROSE COMPLEX 100 MG in SODIUM CHLORIDE 0.9% IV 250 ML 125 MG IVPB (13:45)
[2024-07-06 14:06] VITALS: BP 100/72; PULSE 78; RESP 16; TEMP 36.1; O2SAT 95
[2024-07-06 14:09] VITALS: BMI 35.4
== END 2024-07-06 13:07 | disposition home or self-care (01) ==
PROVIDERS: PCP Nurse Practitioner Family; Visit Provider Nurse Practitioner Family
DX: D50.9 Iron deficiency anemia, unspecified (principal)
CPT/HCPCS: 96365; 96366; J1756; J7050

== ENCOUNTER 2024-07-23 15:41 | Outpatient (CLI) | payer MEDICARE, OTHER, SELFPAY ==
[2024-07-23 15:58] LABS: Basophils Absolute Auto 0.05 K/mm3 (0.00-0.10); Basophils Percent Auto 0.5 % (0.0-1.0); Eosinophils Absolute Auto 0.24 K/mm3 (0.02-0.50); Eosinophils Percent Auto 2.3 % (1.0-6.0); Hematocrit 35.3 % (37.0-46.0); Hemoglobin 10.6 g/dL (12.4-15.3); Immature Granulocyte Absolute 0.03 K/mm3 (0.00-0.00); Immature Granulocyte Percent A 0.3 % (0.0-0.0); Lymphocytes Absolute Auto 1.56 K/mm3 (1.10-4.50); Lymphocytes Percent Auto 15.1 % (18.0-42.0); Mean Corpuscular Hemoglobin 27.3 pg (27.0-31.0); Mean Platelet Volume 9.7 fl (8.7-11.0); Monocytes Absolute Auto 0.58 K/mm3 (0.10-0.90); Monocytes Percent Auto 5.6 % (2.0-11.0); Neutrophils Absolute Auto 7.88 K/mm3 (1.70-7.20); Neutrophils Percent Auto 76.2 % (50.0-70.0); Platelet Count Result 275 K/mm3 (150-420); Red Blood Count 3.88 M/mm3 (4.70-6.10); Red Cell Distribution Width 20.1 % (11.6-14.4); White Blood Count 10.3 K/mm3 (4.8-10.8)
[2024-07-23 16:53] LABS: Iron 36 ug/dL (65-175)
[2024-07-25 04:38] LABS: Vitamin D 25 Hydroxy 59 ng/mL (30-100)
== END 2024-07-23 15:42 | disposition home or self-care (01) ==
LOC: CHSLAB 15:43
PROVIDERS: PCP Nurse Practitioner Family; Visit Provider Nurse Practitioner Family
DX: E61.1 Iron deficiency (principal); Z79.899 Other long term (current) drug therapy
CPT/HCPCS: 36415; 82306; 83540; 85025

== ENCOUNTER 2024-08-20 10:08 | Outpatient (CLI) | payer MEDICARE, OTHER, SELFPAY ==
--- NOTE | ~2024-08-20 | XR_ITS ---
XR chest 2V Ordering provider: Josi Durham NP History: 78 years Male with . COPD,COUGH,SOB . Comparison: None. FINDINGS: MEDIASTINUM: The cardiac silhouette is not enlarged. LUNGS: No effusions or pneumothorax. Emphysematous changes of the lungs. Slightly prominent markings in the lower lobes which may indicate atelectasis versus early pneumonia. Follow-up advised. OTHER: No free air under the diaphragm. IMPRESSION: Slightly prominent markings in the lower lobes which may indicate atelectasis versus early pneumonia. Follow-up advised. Reviewed, dictated and finalized at location A. EBACK EXCAVATOR IMPRESSION: Slightly prominent markings in the lower lobes which may indicate atelectasis v ersus early pneumonia. Follow-up advised.
[2024-08-20 10:45] LABS: Basophils Absolute Auto 0.06 K/mm3 (0.00-0.10); Basophils Percent Auto 0.5 % (0.0-1.0); Eosinophils Absolute Auto 0.22 K/mm3 (0.02-0.50); Eosinophils Percent Auto 1.8 % (1.0-6.0); Hematocrit 37.6 % (37.0-46.0); Hemoglobin 11.8 g/dL (12.4-15.3); Immature Granulocyte Absolute 0.05 K/mm3 (0.00-0.00); Immature Granulocyte Percent A 0.4 % (0.0-0.0); Lymphocytes Absolute Auto 1.82 K/mm3 (1.10-4.50); Lymphocytes Percent Auto 15.3 % (18.0-42.0); Mean Corpuscular HGB Conc 31.4 g/dL (32-36); Mean Corpuscular Hemoglobin 29.3 pg (27.0-31.0); Mean Corpuscular Volume 93.3 fL (78.0-102.0); Mean Platelet Volume 10.6 fl (8.7-11.0); Monocytes Absolute Auto 0.82 K/mm3 (0.10-0.90); Monocytes Percent Auto 6.9 % (2.0-11.0); Neutrophils Absolute Auto 8.94 K/mm3 (1.70-7.20); Neutrophils Percent Auto 75.1 % (50.0-70.0); Platelet Count Result 257 K/mm3 (150-420); Red Blood Count 4.03 M/mm3 (4.70-6.10); White Blood Count 11.9 K/mm3 (4.8-10.8)
[2024-08-20 11:33] LABS: Iron 134 ug/dL (65-175); NT Pro B Type Natriuretic Pept 74 pg/mL (0-450)
== END 2024-08-20 10:09 | disposition home or self-care (01) ==
LOC: CHSLAB 10:10
PROVIDERS: PCP Family Medicine; Visit Provider Nurse Practitioner Family
DX: E61.1 Iron deficiency (principal); I50.9 Heart failure, unspecified; J44.9 Chronic obstructive pulmonary disease, unspecified
CPT/HCPCS: 36415; 71046; 83540; 83880; 85025

== ENCOUNTER 2024-09-18 13:43 | Outpatient (RCR) | payer MEDICARE, OTHER, SELFPAY ==
--- NOTE | 2024-09-18 15:15 | PTOPEVAL1 ---
Assessment and note entered by Fabi Hamilton DPT Evaluation Information Assessment Status Evaluation Diagnosis weakness, decreased balance Other ICD-10 Condition Codes ( R53.81, M19.90 PT) Onset 09/06/24 Subjective Information Patient reports that over the last year or so he has started to feel weaker. He reports he was in the hospital and rehab last September and they gave him exercises and he only did them about a week but did feel stronger when doing exercises. He reports he now feels like he can not walk as far and requires more dependence on his O2. He reports he is on 2-4L of oxygen. He reports he has had 1 fall in the last year. He is not using an AD at this time. He reports 1 step to get into/out of the house. He reports he still drives. He denies pain. Reported Pain Level Pain Score 0: Self Report Assessment PT Clinical Summary Mr Ferreira is a 78 year old male who presents to PT with weakness and poor balance. He demonstrates decreased B LE strength, impaired gait and poor balance testing with 5TSTS, Tinetii and 5 min walk test. He has had 1 fall within the last year but feels that changing directions within the home and community is difficult. He would benefit from skilled PT to address impairments and return to PLOF. Plan of Care Interventions Electrical Stimulation,Gait Training,Hot Pack/Cold Pack,Manual Therapy,Patient/Caregiver Education, Therapeutic Activities,Therapeutic Exercise PT Services Indicated Yes Treatment Frequency and 2x weekly for 10 visits Duration These treatments will address the objective and functional deficits as defined above. The patient will be advanced safely and appropriately in order for the patient to progress towards his/her prior level of function. Additional exercises will be introduced and as well as a comprehensive home exercise program upon discharge, if needed, ?to ensure carryover of functional gains achieved in the clinic. This treatment plan has been reviewed and agreement upon by the patient.
--- NOTE | 2024-09-25 17:46 | PCPTNOTE ---
Patient called & cancelled scheduled appointment this date due to weather.
--- NOTE | 2024-10-10 13:50 | PCPTNOTE ---
Pt. called and canceled his appointment on this date.
--- NOTE | 2024-10-26 12:58 | PCPTNOTE ---
Cancelled session due to cold and states his breathing is bad today.
== END 2024-10-10 20:00 | disposition home or self-care (01) ==
LOC: CHSPT 13:43
PROVIDERS: Visit Provider Family Medicine
DX: R53.81 Other malaise (principal); M19.90 Unspecified osteoarthritis, unspecified site
CPT/HCPCS: 97110; 97161

== ENCOUNTER 2024-10-11 10:58 | Outpatient (CLI) | payer MEDICARE, OTHER, SELFPAY ==
--- NOTE | ~2024-10-11 | XR_ITS ---
Clinical Indication: Shortness of breath PA and lateral views of the chest: Comparison: 08/20/2024 Findings: The lungs are clear, without evidence of focal consolidation or pleural effusion. Possible COPD. Cardiomediastinal silhouette is within normal limits. Bones and soft tissues are unremarkable. Impression: Clear lungs. Possible COPD. Reviewed, dictated and finalized at location . DOZER/LOADER/COMPACTOR/SCRAPER Impression: Clear lungs. Possible COPD.
[2024-10-11 11:20] LABS: Basophils Absolute Auto 0.07 K/mm3 (0.00-0.10); Basophils Percent Auto 0.6 % (0.0-1.0); Eosinophils Absolute Auto 0.53 K/mm3 (0.02-0.50); Eosinophils Percent Auto 4.5 % (1.0-6.0); Hematocrit 38.7 % (37.0-46.0); Immature Granulocyte Absolute 0.05 K/mm3 (0.00-0.00); Immature Granulocyte Percent A 0.4 % (0.0-0.0); Lymphocytes Absolute Auto 1.89 K/mm3 (1.10-4.50); Lymphocytes Percent Auto 16.1 % (18.0-42.0); Mean Corpuscular Hemoglobin 30.1 pg (27.0-31.0); Mean Platelet Volume 9.8 fl (8.7-11.0); Monocytes Absolute Auto 0.84 K/mm3 (0.10-0.90); Monocytes Percent Auto 7.2 % (2.0-11.0); Neutrophils Absolute Auto 8.33 K/mm3 (1.70-7.20); Neutrophils Percent Auto 71.2 % (50.0-70.0); Platelet Count Result 281 K/mm3 (150-420); Red Blood Count 3.99 M/mm3 (4.70-6.10); White Blood Count 11.7 K/mm3 (4.8-10.8)
--- OUTSIDE RECORDS SUMMARY | 2024-10-11 11:28 | XMS_ITS | Patient Health Summary ---
Author Organization [facility] Address [address] [place] [address] Care Team Providers Care Ink Technician Name Role Phone Unavailable Primary Care Provider Unavailabl e Note from [facility],non-owned Affiliates and Associated Physician Practices is amultiple site organization consisting of ambulatory clinics and hospital sitesin [place], [place], [place] and [place]. This disclosure is being madepursuant to the Care Everywhere program and may not contain all information available regarding this patient. Last updated 18.[facility] Allergies No known active allergies Medications * Be aware that medications may not be up to date on this document. Alwaysverify current medications with the patient. * allopurinol (Zyloprim) 100 MG tablet Take 1 (one) tablet by mouth once daily * azelastine (Astelin) 0.1 % nasal spray [place] 1 (one) spray into each nostril 2 times daily * budesonide-formoterol (Symbicort) 160-4.5 MCG/ACT inhaler Inhale 2 (two) puffs by mouth 2 times daily * finasteride (Proscar) 5 MG tablet Take 1 (one) tablet by mouth once daily * furosemide (Lasix) 20 MG tablet Take 1 (one) tablet by mouth once daily * metoprolol succinate XL 24hr (Toprol XL) 25 MG tablet Take 0.5 (one-half) tablet by mouth once daily * aspirin (Aspirin) 81 MG chew tablet(Started 09/14/2023) Take 1 (one) tablet by mouth once daily * empagliflozin (Jardiance) 10 MG tablet(Started 09/14/2023) Take 1 (one) tablet by mouth once daily * atorvastatin (Lipitor) 40 MG tablet(Started 09/13/2023) Take 1 (one) tablet by mouth at bedtime * sacubitril-valsartan (Entresto) 24-26 MG tablet(Started 09/13/2023) Take 1 (one) tablet by mouth 2 times daily * spironolactone (Aldactone) 25 MG tablet(Started 09/14/2023) Take 0.5 (one-half) tablet by mouth once daily Active Problems Problem Noted Date Diagnosed Date COPD exacerbation 09/03/2023 Acute hypoxic respiratory failure 09/03/2023 Chronic heart failure 09/03/2023 ELIDA (acute kidney injury) 09/03/2023 Community acquired pneumonia of left lower lobe of lung 09/03/2023 Shock 09/03/2023 Social History Tobacco Use Types Packs/Day Years Used Date Smoking Tobacco: Every Day Cigarettes Smokeless Tobacco: Never Tobacco Cessation:Ready to Q uit: Not Asked; Counseling Given: Not Answered Alcohol Use Standard Drinks/Week Comments Yes 0 (1 standard drink = 0.6 oz pur e alcohol) occasional AUDIT-C Answer Date Recorded Q1: How often do you have a drink containing alcohol? Patient unable to answer 09/05/2023 Q2: How many drinks containi ng alcohol do you have on a typical day when you are drinking? Patient unable to answer Q3: How often do you have si x or more drinks on one occasion? Patient unable to answer 09/05/2023 Overall Financial Resource Strain (CARDIA) Answe r Date Recorded How hard is it for you to pa y for the very basics like food, housing, medical care, and heating? Not hard at all 09/05/2023 [facility] [place] [facility] Occupat ional Health - Occupational Stress Questionnaire Answer Date Recorded Do you feel stress - tense, restless, nervous, or anxious, or unable to sleep at night because your mind is troubled all the time - these days? Patient unable to answer 09/05/2023 Hunger Vital Sign Answer Date Recorded Within the past 12 months, y ou worried that your food would run out before you got the money to buy more. Patient unable to answer 09/05/2023 Within the past 12 months, t he food you bought just didn't last and you didn't have money to get more. Patient unable to answer 09/05/2023 PRAPARE - Transportation Answer Date Re corded In the past 12 months, has l ack of transportation kept you from medical appointments or from getting medications? Patient unable to answer 09/05/2023 In the past 12 months, has l ack of transportation kept you from meetings, work, or from getting things needed for daily living? Patient unable to answer 09/05/2023 Housing Stability Vital Sign Answer Jeremiah e Recorded In the last 12 months, was t here a time when you were not able to pay the mortgage or rent on time? Patient unable to answer 09/05/2023 Number of Places Lived in the Last Year Not on f ile 09/05/2023 In the last 12 months, was t here a time when you did not have a steady place to sleep or slept in a chcf (including now)? Patient unable to answer 09/05/2023 Sex and Gender Information Value Date Recorded Sex Assigned at Not on file Gender Identity Not on file Sexual Orientation Not on file Last Filed Vital Signs Vital Sign Reading Time Taken Comments Blood Pressure 93/57 09/13/2023 4:02 PM QUALITY ASSURANCE INTERN Pulse 95 09/13/2023 4:02 PM [facility]AL[facility] ASSURANCE INTERN Temperature 36.2 C (97.2 F) 09/13/2023 4:02 PM [facility]AL[facility] ASSURANCE INTERN Respiratory Rate 18 09/13/2023 4:02 PM QUALITY ASSURANCE INTERN Oxygen Saturation 95% 09/13/2023 4:02 PM [facility]ALITY ASSURANCE INTERN Inhaled Oxygen Concentration 40% 09/06/2023 1 0:02 AM QUALITY ASSURANCE INTERN Weight 116 kg (255 lb 11.2 oz) 09/12/2023 4:00 A M [facility]ALITY ASSURANCE INTERN Height 182.9 cm (6') 09/07/2023 8:00 PM QUALITY ASSURANCE INTERN Body Mass Index 34.68 09/07/2023 8:00 PM [facility]AL[facility] ASSURANCE INTERN Procedures * CARDIAC RHYTHM STRIP ORDER(Performed 09/14/2023) * GLUCOSE - POINT OF CARE(Performed 09/13/2023) * BASIC METABOLIC PANEL (CALCIUM TOTAL)(Performed 09/13/2023) * GLUCOSE - POINT OF CARE(Performed 09/13/2023) * GLUCOSE - POINT OF CARE(Performed 09/13/2023) * GLUCOSE - POINT OF CARE(Performed 09/12/2023) * GLUCOSE - POINT OF CARE(Performed 09/12/2023) * GLUCOSE - POINT OF CARE(Performed 09/12/2023) * MAGNESIUM BLOOD(Performed 09/12/2023) * COMPREHENSIVE METABOLIC PANEL(Performed 09/12/2023) * CBC W AUTO DIFFERENTIAL(Performed 09/12/2023) * GLUCOSE - POINT OF CARE(Performed 09/12/2023) * GLUCOSE - POINT OF CARE(Performed 09/11/2023) * GLUCOSE - POINT OF CARE(Performed 09/11/2023) * XR FOREARM RIGHT 2VW OR MORE(Performed 09/11/2023) Performed for Fall, initial encounter * MAGNESIUM BLOOD(Performed 09/11/2023) * COMPREHENSIVE METABOLIC PANEL(Performed 09/11/2023) * CBC W AUTO DIFFERENTIAL(Performed 09/11/2023) * GLUCOSE - POINT OF CARE(Performed 09/11/2023) * GLUCOSE - POINT OF CARE(Performed 09/10/2023) * GLUCOSE - POINT OF CARE(Performed 09/10/2023) * GLUCOSE - POINT OF CARE(Performed 09/10/2023) * GLUCOSE - POINT OF CARE(Performed 09/10/2023) * MAGNESIUM BLOOD(Performed 09/10/2023) * COMPREHENSIVE METABOLIC PANEL(Performed 09/10/2023) * CBC W AUTO DIFFERENTIAL(Performed 09/10/2023) * GLUCOSE - POINT OF CARE(Performed 09/10/2023) * GLUCOSE - POINT OF CARE(Performed 09/09/2023) * GLUCOSE - POINT OF CARE(Performed 09/09/2023) * GLUCOSE - POINT OF CARE(Performed 09/09/2023) * MAGNESIUM BLOOD(Performed 09/09/2023) * COMPREHENSIVE METABOLIC PANEL(Performed 09/09/2023) * CBC W AUTO DIFFERENTIAL(Performed 09/09/2023) * GLUCOSE - POINT OF CARE(Performed 09/08/2023) * GLUCOSE - POINT OF CARE(Performed 09/08/2023) * GLUCOSE - POINT OF CARE(Performed 09/08/2023) * FL SWALLOWING FUNCTION STUDY(Performed 09/08/2023) Performed for COPD exacerbation (HCC) * GLUCOSE - POINT OF CARE(Performed 09/08/2023) * MAGNESIUM BLOOD(Performed 09/08/2023) * COMPREHENSIVE METABOLIC PANEL(Performed 09/08/2023) * CBC W AUTO DIFFERENTIAL(Performed 09/08/2023) * GLUCOSE - POINT OF CARE(Performed 09/08/2023) * GLUCOSE - POINT OF CARE(Performed 09/07/2023) * GLUCOSE - POINT OF CARE(Performed 09/07/2023) * GLUCOSE - POINT OF CARE(Performed 09/07/2023) * MAGNESIUM BLOOD(Performed 09/07/2023) * COMPREHENSIVE METABOLIC PANEL(Performed 09/07/2023) * CBC W AUTO DIFFERENTIAL(Performed 09/07/2023) * GLUCOSE - POINT OF CARE(Performed 09/07/2023) * GLUCOSE - POINT OF CARE(Performed 09/06/2023) * BLOOD GASES DELORES(Performed 09/06/2023) * GLUCOSE - POINT OF CARE(Performed 09/06/2023) * BASIC METABOLIC PANEL (CALCIUM TOTAL)(Performed 09/06/2023) * ECHO COMPLETE W CONTRAST(Performed 09/06/2023) Performed for Congestive heart failure, unspecified HF chronicity, unspecified heart failure type (HCC) * GLUCOSE - POINT OF CARE(Performed 09/06/2023) * MAGNESIUM BLOOD(Performed 09/06/2023) * COMPREHENSIVE METABOLIC PANEL(Performed 09/06/2023) * CBC W AUTO DIFFERENTIAL(Performed 09/06/2023) * GLUCOSE - POINT OF CARE(Performed 09/05/2023) * GLUCOSE - POINT OF CARE(Performed 09/05/2023) * GLUCOSE - POINT OF CARE(Performed 09/05/2023) * GLUCOSE - POINT OF CARE(Performed 09/05/2023) * TRIGLYCERIDES BLOOD(Performed 09/05/2023) * MAGNESIUM BLOOD(Performed 09/05/2023) * COMPREHENSIVE METABOLIC PANEL(Performed 09/05/2023) * CBC W AUTO DIFFERENTIAL(Performed 09/05/2023) * GLUCOSE - POINT OF CARE(Performed 09/05/2023) * RENAL FUNCTION PANEL(Performed 09/04/2023) * GLUCOSE - POINT OF CARE(Performed 09/04/2023) * CULTURE BLOOD(Performed 09/04/2023) * MRSA DNA PCR(Performed 09/04/2023) * CULTURE BLOOD(Performed 09/04/2023) * RENAL FUNCTION PANEL(Performed 09/04/2023) * GLUCOSE - POINT OF CARE(Performed 09/04/2023) * CULTURE SPUTUM+GRAM STAIN(Performed 09/04/2023) * LACTIC ACID BLOOD(Performed 09/04/2023) * GLUCOSE - POINT OF CARE(Performed 09/04/2023) * HEMOGLOBIN A1C(Performed 09/04/2023) * MAGNESIUM BLOOD(Performed 09/04/2023) * COMPREHENSIVE METABOLIC PANEL(Performed 09/04/2023) * CBC W AUTO DIFFERENTIAL(Performed 09/04/2023) * GLUCOSE - POINT OF CARE(Performed 09/03/2023) * RESPIRATORY PANEL WITH SARS-COV-2 BY PCR (STL)(Performed 09/03/2023) * STREP PNEUMONIAE ANTIGEN URINE(Performed 09/03/2023) * GLUCOSE - POINT OF CARE(Performed 09/03/2023) * XR CHEST 1VW PORTABLE(Performed 09/03/2023) Performed for COPD exacerbation (HCC) * XR ABDOMEN KUB(Performed 09/03/2023) Performed for COPD exacerbation (HCC) * C-REACTIVE PROTEIN(Performed 09/03/2023) * PHOSPHORUS BLOOD(Performed 09/03/2023) * MAGNESIUM BLOOD(Performed 09/03/2023) * LACTIC ACID BLOOD(Performed 09/03/2023) * COMPREHENSIVE METABOLIC PANEL(Performed 09/03/2023) * BLOOD GASES ARTERIAL(Performed 09/03/2023) * GLUCOSE - POINT OF CARE(Performed 09/03/2023) * RESPIRATORY PANEL WITH SARS-COV-2 BY PCR (STL)(Performed 09/03/2023) Performed for SOB (shortness of breath) * CT HEAD WO CONTRAST(Performed 09/03/2023) Performed for SOB (shortness of breath), Altered mental status, unspecified altered mental status type * POTASSIUM BLOOD(Performed 09/03/2023) Performed for Hyperkalemia * GLUCOSE - POINT OF CARE(Performed 09/03/2023) * GLUCOSE - POINT OF CARE(Performed 09/03/2023) * BLOOD GASES ARTERIAL(Performed 09/03/2023) Performed for SOB (shortness of breath) * URINE DRUG SCREEN IMMUNOASSAY(Performed 09/03/2023) Performed for Acute respiratory failure, unspecified whether with hypoxia or hypercapnia (HCC) * XR CHEST POST PROCEDURE(Performed 09/03/2023) Performed for Encounter for central line placement * ED CENTRAL LINE PLACEMENT(Performed 09/03/2023) * LEGIONELLA ANTIGEN URINE(Performed 09/03/2023) Performed for COPD exacerbation (HCC) * URINE MICROSCOPIC ONLY REFLEX TO CULTURE(Performed 09/03/2023) * URINALYSIS REFLEX MICROSCOPIC REFLEX CULTURE(Performed 09/03/2023) * CULTURE BLOOD(Performed 09/03/2023) Performed for COPD exacerbation (HCC) * CULTURE BLOOD(Performed 09/03/2023) Performed for SOB (shortness of breath), COPD exacerbation (HCC) * PROCALCITONIN LEVEL(Performed 09/03/2023) Performed for SOB (shortness of breath), COPD exacerbation (HCC) * MAGNESIUM BLOOD(Performed 09/03/2023) Performed for SOB (shortness of breath) * BASIC METABOLIC PANEL (CALCIUM TOTAL)(Performed 09/03/2023) Performed for SOB (shortness of breath) * TROPONIN-I HIGH SENSITIVE REFLEX 1HOUR(Performed 09/03/2023) * XR CHEST POST PROCEDURE(Performed 09/03/2023) Performed for SOB (shortness of breath) * BLOOD GASES ARTERIAL(Performed 09/03/2023) Performed for SOB (shortness of breath) * BLOOD GASES ARTERIAL(Performed 09/03/2023) Performed for SOB (shortness of breath) * CT ANGIO CHEST PULM EMBOLISM(Performed 09/03/2023) Performed for SOB (shortness of breath) * BLOOD GASES ARTERIAL(Performed 09/03/2023) Performed for SOB (shortness of breath) * BLOOD GASES ARTERIAL(Performed 09/03/2023) Performed for SOB (shortness of breath) * SARS-COV-2 (COVID-19) FLU A/B RSV PCR RAPID(Performed 09/03/2023) * D-DIMER(Performed 09/03/2023) * COMPREHENSIVE METABOLIC PANEL(Performed 09/03/2023) * B-TYPE NATRIURETIC PEPTIDE(Performed 09/03/2023) * CBC W AUTO DIFFERENTIAL(Performed 09/03/2023) * TROPONIN-I HIGH SENSITIVE BASELINE + 1HR(Performed 09/03/2023) * XR CHEST 1VW PORTABLE(Performed 09/02/2023) Performed for SOB (shortness of breath) * ED CRITICAL CARE(Performed 09/02/2023) * EKG 12-LEAD(Performed 09/02/2023) Performed for SOB (shortness of breath) Results * CARDIAC RHYTHM STRIP ORDER (09/14/2023 9:42 PM QUALITY ASSURANCE INTERN) Narrative 09/14/2023 9:42 PM QUALITY ASSURANCE INTERN Ordered by an unspecified provider. Scanned Document CARDIAC SERVICES ORD ERABLES * GLUCOSE - POINT OF CARE (09/13/2023 12:06 PM QUALITY ASSURANCE INTERN) Only the most recent of43 resultswithin the time period is included. Glucose WB/POC 77 70 - 106 mg/dL 09/13/2023 12:16 PM QUALITY ASSURANCE INTERN [facility] Specimen Type Cap Fingerstick 2023 12:16 PM [facility] Blood BLOOD SPECIMEN / Unknown 09/13/2023 12:06 PM QUALITY ASSURANCE INTERN 09/13/2023 12:16 PM QUALITY ASSURANCE INTERN Eligio Dejesus MD LAB - POINT OF CARE ORDERABLES Performing Organization Address City/State/[facility] Co de Phone Number [facility] [address] [place] [address] * (ABNORMAL) BASIC METABOLIC PANEL (CALCIUM TOTAL) (09/13/2023 9:17 AM QUALITY ASSURANCE INTERN) Only the most recent of3 resultswithin the time period is included. Glucose 166(H) 70 - 105 mg/dL 09/13/2023 11:27 AM [facility] Sodium 136 136 - 145 mmol/L 09/13/2023 11:27 AM [facility] Potassium 3.8 3.5 - 5.1 mmol/L 09/13/2023 11:27 AM [facility] Chloride 99 98 - 107 mmol/L 09/13/2023 11:27 AM [facility] CO2 28 22 - 29 mmol/L 09/13/2023 11:27 AM [facility] Calcium 9.2 8.4 - 10.4 mg/dL 09/13/2023 11:27 AM [facility] Anion Gap 9 6 - 16 mmol/L 09/13/2023 11:27 AM [facility] BUN 26 7 - 26 mg/dL 09/13/2023 11:27 AM [facility] Creatinine 1.01 0.72 - 1.25 mg/dL 09/13/2023 11:27 AM [facility] eGFR by CKD-EPI 77(L) >=90 mL/min/1.7 3 m2 09/13/2023 11:27 AM [facility] Blood BLOOD SPECIMEN / Unknown Lab Venipuncture / Unknown 09/13/2023 9:17 AM QUAL[facility] ASSURANCE INTERN 09/13/2023 10:57 AM QUALITY ASSURANCE INTERN Eligio Dejesus MD LAB - CHEMISTRY [place] [facility] Organization Address City/State/ZIP Co de Phone Number [facility] [address] [place] [address] * (ABNORMAL) CBC W AUTO DIFFERENTIAL (09/12/2023 4:49 AM [facility]) Only the most recent of10 resultswithin the time period is included. WBC 11.8(H) 4.0 - 10.7 x10E9/L 09/12/2023 6:05 AM [facility] RBC Count 4.64 4.30 - 5.80 x10E12/L 09/12/2023 6:05 AM [facility] Hemoglobin 10.4(L) 13.3 - 17.5 g/dL 09/12/2023 6:05 AM [facility] Hematocrit 37.5(L) 38.7 - 51.1 % 09/12/2023 6:05 AM [facility] MCV 80.8 80.0 - 98.0 fL 09/12/2023 6:05 AM [facility] MCH 22.4(L) 26.7 - 33.6 pg 09/12/2023 6:05 AM [facility] MCHC 27.7(L) 31.7 - 36.3 g/dL 09/12/2023 6:05 AM [facility] RDW-CV 18.7(H) 11.3 - 14.8 % 09/12/2023 6:05 AM [facility] Platelet Count 227 150 - 420 x10E9/L 09/12/2023 6:05 AM [facility] MPV 10.8 7.8 - 11.4 fL 09/12/2023 6:05 AM [facility] Neutrophil % 78.3(H) 41.0 - 74.0 % 09/12/2023 6:05 AM [facility] Lymphocyte % 11.3(L) 17.0 - 47.0 % 09/12/2023 6:05 AM [facility] Monocyte % 9.5 3.0 - 11.0 % 09/12/2023 6:05 AM [facility] Eosinophil % 0.3 0.0 - 7.0 % 09/12/2023 6:05 AM [facility] Basophil % 0.2 0.0 - 1.6 % 09/12/2023 6:05 AM [facility] Immature Granulocytes % 0.4 0.0 - 1.0 % 09/12/2023 6:05 AM [facility] Neutrophil Absolute 9.24(H) 1.60 - 7.50 x10E9/L 09/12/2023 6:05 AM [facility] Lymphocyte Absolute 1.34 1.00 - 4.40 x10E9/L 09/12/2023 6:05 AM [facility] Monocyte Absolute 1.12(H) 0.15 - 1.00 x10E9/L 09/12/2023 6:05 AM [facility] Eosinophil Absolute 0.04 0.00 - 0.60 x10E9/L 09/12/2023 6:05 AM [facility] Basophil Absolute 0.02 0.00 - 0.13 x10E9/L 09/12/2023 6:05 AM [facility] Blood BLOOD SPECIMEN / Unknown Lab Venipuncture / Unknown 09/12/2023 4:49 AM [facility] 09/12/2023 5:48 AM [facility] Chanda Casillas MD LAB - HEMATOLOGY ORD ERABLES [facility] [address] [place] [address] * (ABNORMAL) COMPREHENSIVE METABOLIC PANEL (09/12/2023 4:49 AM [facility]) Only the most recent of11 resultswithin the time period is included. [facility] Glucose 85 70 - 105 mg/dL 09/12/2023 6:22 AM [facility] Sodium 132(L) 136 - 145 mmol/L 09/12/2023 6:22 AM [facility] Potassium 4.3 3.5 - 5.1 mmol/L 09/12/2023 6:22 AM [facility] Chloride 98 98 - 107 mmol/L 09/12/2023 6:22 AM [facility] CO2 25 22 - 29 mmol/L 09/12/2023 6:22 AM [facility] Calcium 9.0 8.4 - 10.4 mg/dL 09/12/2023 6:22 AM [facility] Anion Gap 9 6 - 16 mmol/L 09/12/2023 6:22 AM [facility] BUN 22 7 - 26 mg/dL 09/12/2023 6:22 AM [facility] Creatinine 0.91 0.72 - 1.25 mg/dL 09/12/2023 6:22 AM [facility] Alkaline Phosphatase 72 40 - 150 U/L 09/12/2023 6:22 AM [facility] ALT 25 0 - 55 U/L 09/12/2023 6:22 AM [facility] AST 24 5 - 34 U/L 09/12/2023 6:22 AM [facility] Protein Total 5.7(L) 6.4 - 8.3 gm/dL 09/12/2023 6:22 AM [facility] Albumin 2.9(L) 3.4 - 5.0 gm/dL 09/12/2023 6:22 AM [facility] Bilirubin Total 1.1 0.2 - 1.2 mg/dL 09/12/2023 6:22 AM [facility] eGFR by CKD-EPI 87(L) >=90 mL/min/1.7 3 m2 09/12/2023 6:22 AM [facility] Blood BLOOD SPECIMEN / Unknown Lab Venipuncture / Unknown 09/12/2023 4:49 AM [facility] INTERN 09/12/2023 5:49 AM [facility] Chanda Casillas MD LAB - CHEMISTRY [place]IS [place] [facility] Organization Address City/State/ZIP Co de Phone Number [facility] [address] [place] [address] * MAGNESIUM BLOOD (09/12/2023 4:49 AM [facility]) Only the most recent of11 resultswithin the time period is included. Magnesium 2.1 1.6 - 2.6 mg/dL 09/12/2023 6:22 AM QUALITY ASSURANCE INTERN [facility] Blood BLOOD SPECIMEN / Unknown Lab Venipuncture / Unknown 09/12/2023 4:49 AM [facility]ANCE INTERN 09/12/2023 5:49 AM [facility]AL[facility] ASSURANCE INTERN Chanda Casillas MD LAB - CHEMISTRY [place]IS [place] [facility] Organization Address City/State/ZIP Co de Phone Number [facility] [address] [place] [address] * XR FOREARM RIGHT 2VW OR MORE (09/11/2023 11:58 AM QUALITY ASSURANCE INTERN) Anatomical Region Laterality Modality Upper Extremity Radiographic Silvia ging 09/12/2023 10:1 8 AM QUALITY ASSURANCE INTERN Narrative 09/12/2023 10:55 AM QUALITY ASSURANCE INTERN PROCEDURE: XR FOREARM RIGHT 2VW OR MORE, DATE/TIME OF EXAM: 09/11/2023 11:58 AM, LOCATION [facility] INDICATION: W19.XXXA: Unspecified fall, initial encounter HISTORY: Injury and pain. FINDINGS: There is mild deformity of the soft tissues within the posterior proximal forearm. No radiopaque foreign body is seen. Degenerative changes of the carpal bones are present. No acute fracture or dislocation is seen. Edited by Megan Segovia on 09/12/2023 10:25 AM > Interpreting Provider: Reymundo Zaldivar MD on 09/12/2023 10:55 AM Procedure Note Reymundo Zaldivar MD - 09/12/2023 PROCEDURE: XR FOREARM RIGHT 2VW OR MORE, DATE/TIME OF EXAM: 09/11/2023 11:58 AM, LOCATION [facility] INDICATION: W19.XXXA: Unspecified fall, initial encounter HISTORY: Injury and pain. FINDINGS: There is mild deformity of the soft tissues within the posteriorproximal forearm. No radiopaque foreign body is seen. Degenerative changes of the carpal bones are present. No acute fracture or dislocation is seen. Edited by Megan Segovia on 09/12/2023 10:25 AM > Interpreting Provider: Reymundo Zaldivar MD on 09/12/2023 10:55 AM Eligio Dejesus MD DIAGNOSTIC IMAGING O RDERABLES * FL MODIFIED BARIUM SWALLOW W/SPEECH (09/08/2023 9:22 AM QUALITY ASSURANCE INTERN) Anatomical Region Laterality Modality Chest Radio Fluoroscop y 09/08/2023 10:1 3 AM QUALITY ASSURANCE INTERN Narrative 09/08/2023 11:16 AM QUALITY ASSURANCE INTERN PROCEDURE: FL SWALLOWING FUNCTION STUDY, DATE/TIME OF EXAM: 09/08/2023 9:29 AM, LOCATION [facility] INDICATION: J44.1: Chronic obstructive pulmonary disease with (acute) exacerbation ([facility]) COMPARISON: None. FLUOROSCOPY DOSE: 6.1 mGy Reference air kerma (ka,r). FLUOROSCOPY TIME: 1.03 minutes TECHNIQUE: Modified barium swallow fluoroscopy performed in conjunction with speech pathology staff. The speech pathologist administered varying thickness barium liquids and solids under direct Cine fluoroscopy. FINDINGS/IMPRESSION: Fluoroscopic assistance was provided for a modified barium swallow test performed by Speech Therapy. No evidence of penetration or aspiration. Please see the Speech Therapy report for details. Report dictated by Giana Lancaster DO (residential insurance inspector). I, Tamara Santiago MD have personally reviewed and interpreted this examination/study. > Interpreting Provider: Tamara Santiago MD on 09/08/2023 11:16 AM Procedure Note Tamara Santiago MD - 09/08/2023 PROCEDURE: FL SWALLOWING FUNCTION STUDY, DATE/TIME OF EXAM: 49:29 AM, LOCATION [facility] INDICATION: J44.1: Chronic obstructive pulmonary disease with (acute) exacerbation ([facility]-HCC) COMPARISON: None. FLUOROSCOPY DOSE: 6.1 mGy Reference air kerma (ka,r). FLUOROSCOPY TIME: 1.03 minutes TECHNIQUE: Modified barium swallow fluoroscopy performed in conjunction with speech pathology staff. The speech pathologist administered varying thickness barium liquids and solids under direct Cine fluoroscopy. FINDINGS/IMPRESSION: Fluoroscopic assistance was provided for a modified barium swallow test performed by Speech Therapy. No evidence of penetration or aspiration. Please see the Speech Therapy report for details. Report dictated by Giana Lancaster DO (residential insurance inspector). I, Tamara Santiago MD have personally reviewed and interpreted this examination/study. > Interpreting Provider: Tamara Santiago MD on 09/08/2023 11:16 AM Daryl Martin MD FLUOROSCOPY ORDERABL ES * (ABNORMAL) BLOOD GASES DELORES (09/06/2023 11:56 AM QUALITY ASSURANCE INTERN) pH Venous 7.41 7.32 - 7.42 pH 09/06/2023 12:08 PM QUALITY ASSURANCE INTERN [facility] RESP THERAPY pO2 Venous 43(H) 35 - 40 mmHg 09/06/2023 12:08 PM QUALITY ASSURANCE INTERN [facility] RESP THERAPY pCO2 Venous 63(H) 40 - 50 mmHg 09/06/2023 12:08 PM QUALITY ASSURANCE INTERN [facility] RESP THERAPY HCO3 Venous 39.9(H) 24 - 26 mmol/L 09/06/2023 12:08 PM QUALITY ASSURANCE INTERN [facility] RESP THERAPY Base Excess Venous 12.4(H) -2.0 - 2.0 mmol/L 09/06/2023 12:08 PM QUALITY ASSURANCE INTERN [facility] RESP THERAPY O2 Saturation Venous 64(L) >=70 % 09/06/2023 12:08 PM QUALITY ASSURANCE INTERN [facility]ER[facility] Bentley's Test NA 09/06/2023 12:08 PM QUALITY ASSURANCE INTERN [facility] FI O2 40.0 % 09/06/2023 12:08 PM QUALITY ASSURANCE INTERN [facility] PEEP (cmH2O) 5 09/06/2023 12:08 PM QUALITY ASSURANCE INTERN [facility] Pressure Support (cmH2O) 5 09/06/2023 12:08 PM QUALITY ASSURANCE INTERN [facility] Blood BLOOD SPECIMEN / Unknown 09/06/2023 11:56 AM QUALITY ASSURANCE INTERN 09/06/2023 11:56 AM QUALITY ASSURANCE INTERN Daryl Martin MD LAB - BLOOD GASES OR DERABLES [facility] [address] [phone] * ECHO COMPLETE W CONTRAST (09/06/2023 10:00 AM QUALITY ASSURANCE INTERN) BSA [id number] m2 [facility] CV FUJI PACS LV biplane EF 16 52 - 72 % [facility] CV FUJI PACS LV A2C EF 19 48 - 76 % [facility] CV FUJ I PACS LV A4C EF 16 46 - 74 % [facility] CV FUJ I PACS LV stroke vol BP 35.0 mL SSM CV FUJI PACS LV stroke vol BP index 13.8 mL/m2 [facility]SM CV FUJI PACS LVOT stroke vol 50.43 mL SSM CV FUJI PACS LVOT stroke vol index 19.86 mL/m2 [facility] CV FUJI PACS LV stroke vol index A4C MOD 34.687 ml/m2 [facility] CV FUJI PACS LV ESV BP 183.716 21 - 61 mL SSM CV FUJI PACS LV ESV index BP 72.4 11 - 31 mL/m2 [facility] CV FUJI PACS LV ESV A2C 188.264 15 - 75 mL SSM CV FUJI PACS LV ESV index A2C 74.15 9 - 37 mL/m2 [facility] CV FUJI PACS LV EDV BP 218.733 62 - 150 mL SSM CV FUJI PACS LV ESV A4C 169.247 22 - 78 mL SSM CV FUJI PACS LV ESV index A4C 66.66 12 - 40 mL/m2 [facility]SM CV FUJI PACS LV EDV index BP 86.2 34 - 74 mL/m2 SSM CV FUJI PACS LV EDV A2C 209.845 59 - 175 mL SSM CV FUJI PACS LV EDV index A2C 82.65 31 - 87 mL/m2 SSM CV FUJI PACS LV EDV A4C 222.95 mL SSM CV FU JI PACS LV EDV index A4C 87.81 37 - 93 mL/m2 [facility]SM CV FUJI PACS LVOT diam 2.0 cm SSM CV FUJ I PACS LVOT area 3.04 cm2 SSM CV FUJ I PACS LV Low A2C 9.36 cm SSM CV F UJI PACS LV Low A4C 9.656 cm SSM CV F UJI PACS MV E pk nadine 53.825 cm/s SSM CV F UJI PACS MV A pk nadine 120.038 cm/s SSM CV F UJI PACS MV E A ratio 0.45 SSM CV FUJI PACS MV DT 309 ms SSM CV FUJ I PACS LVOT pk nadine 0.83 m/s SSM CV F UJI PACS LVOT mn nadine 0.57 m/s SSM CV F UJI PACS LVOT mn grad 1.5 mmHg SSM CV FUJI PACS LVOT Cardiac Output 3.824 l/min SSM CV FUJI PACS LVOT Cardiac Index 1.51 l/min/m2 SSM CV FUJI PACS LA size 3.466 3.0 - 4.0 cm SSM CV FUJI PACS LA vol BP A-L 59.451 mL SSM CV FUJI PACS AV mn grad 2 mmHg SSM CV FU JI PACS AV pk grad 4 mmHg SSM CV FU JI PACS AV mn nadine 0.71 m/s SSM CV FUJ I PACS AV pk nadnie 0.94 m/s SSM CV FUJ I PACS AV VTI 20.987 cm SSM CV FUJ I PACS LVOT pk grad 2.761 mmHg SSM CV FUJI PACS LVOT VTI 16.576 cm SSM CV FUJ I PACS AV area cont VTI 2.4 cm2 SSM CV FUJI PACS AV area pk nadine 2.7 cm2 SSM C V FUJI PACS AV Doppler nadine index pk nadine 0.881 SSM CV FUJI PACS Dimensionless Index 0.79 SSM CV FUJI PACS MV PHT 90 ms SSM CV FUJ I PACS MV area PHT 2.45 cm2 SSM CV F UJI PACS MV decel slope 173.959 cm/s2 SSM C V FUJI PACS PV pk nadine 67.291 cm/s SSM CV FUJ I PACS PV pk grad 2 mmHg SSM CV FU JI PACS Sinus of Valsalva 3.26 cm SS M CV FUJI PACS Sinus of valsalva index 1.28 cm/m2 SSM CV FUJI PACS LA ESV A4C MOD Index 18 ml/m2 SSM CV FUJI PACS LA ESV A2C MOD Index 26 ml/m2 SSM CV FUJI PACS [id number] 9.449 cm SSM CV FUJ I PACS [id number] 8.854 cm SSM CV FUJ I PACS Ao Root Diam Index (2D) 1.286 cm SSM CV FUJI PACS LA area A2C 22.3 20 cm2 SSM CV F [facility] LA area A4C 19.1 20 cm2 [facility] Anatomical Region Laterality Modality Ultrasound Narrative 09/06/2023 4:53 PM QUALITY ASSURANCE INTERN Left Ventricle: Left ventricle size is normal. Normal wall thickness. Severely reduced systolic function. EF by 2D Cardoso biplane is 16%. Global hypokinesis present. Regional wall motion abnormalities present. Abnormal diastolic function. Pericardium: Small pericardial effusion present. No indication of cardiac tamponade. Right Ventricle: Moderately reduced systolic function. IVC/SVC: IVC diameter is greater than 21 mm and decreases less than 50% during inspiration; therefore the estimated right atrial pressure is elevated (~15 mmHg). Left Ventricle Left ventricle size is normal. Normal wall thickness. Severely reduced systolic function. EF by 2D Cardoso biplane is 16%. Global hypokinesis present. Regional wall motion abnormalities present. Abnormal diastolic function. Right Ventricle Right ventricle size is normal. Moderately reduced systolic function. Pacing/ICD wire present in the right ventricle. Left Atrium Left atrium size is normal. Right Atrium Right atrium size is normal. IVC/SVC IVC diameter is greater than 21 mm and decreases less than 50% during inspiration; therefore the estimated right atrial pressure is elevated (~15 mmHg). Mitral Valve Valve structure is normal. No restricted motion. Mild regurgitation. No stenosis. Tricuspid Valve Valve structure is normal. No restricted motion. Trace regurgitation. Unable to estimate the pulmonary artery systolic pressure due to lack of tricuspid regurgitation. No stenosis. Aortic Valve Valve structure is trileaflet. No restricted motion. No regurgitation. No stenosis. Pulmonic Valve Valve structure is normal. No restricted motion. No regurgitation. No stenosis. Ascending Aorta Normal sized sinus of Valsalva (aortic root) and ascending aorta. Pericardium Small pericardial effusion present. No indication of cardiac tamponade. Study Details Study quality was poor. A complete 2D, color Doppler, spectral Doppler and M- mode echocardiogram was performed. The apical, parasternal, subcostal and suprasternal views were obtained. Definity ultrasound enhancing agent used. Technical difficulties due to patient's clinical status, poor acoustic windows and patient intubated. Prior Study Prior TTE study available for comparison. Prior study date: 05/09/2020. Procedure Note Bryn Livingston MD - 09/06/2023 Left Ventricle: Left ventricle size is normal. Normal wall thickness.Severely reduced systolic function. EF by 2D Cardoso biplane is 16%.Global hypokinesis present. Regional wall motion abnormalities present.Abnormal diastolic function. Pericardium: Small pericardial effusion present. No indication ofcardiac tamponade. Right Ventricle: Moderately reduced systolic function. IVC/SVC: IVC diameter is greater than 21 mm and decreases less than 50%during inspiration; therefore the estimated right atrial pressure iselevated (~15 mmHg). Chanda Casillas MD ECHO CUPID * TRIGLYCERIDES BLOOD (09/05/2023 3:29 AM QUALITY ASSURANCE INTERN) Triglycerides 105 <150 mg/dL 09/05/2023 4:50 AM QUALITY ASSURANCE INTERN [facility] Blood BLOOD SPECIMEN / Unknown Venipuncture / Unknown 09/05/2023 3:29 AM QUALITY ASSURANCE INTERN 09/05/2023 4:21 AM QUALITY ASSURANCE INTERN Chanda Casillas MD LAB - CHEMISTRY LOLIS [place] [facility] Organization Address City/State/ZIP Co de Phone Number [facility] [address] [place] [address] * (ABNORMAL) RENAL FUNCTION PANEL (09/04/2023 9:07 PM QUALITY ASSURANCE INTERN) Only the most recent of2 resultswithin the time period is included. Glucose 134(H) 70 - 105 mg/dL 09/04/2023 9:28 PM QUALITY ASSURANCE INTERN [facility] Sodium 140 136 - 145 mmol/L 09/04/2023 9:28 PM QUALITY ASSURANCE INTERN [facility] Potassium 5.7(H) 3.5 - 5.1 mmol/L 09/04/2023 9:28 PM [facility] Chloride 100 98 - 107 mmol/L 09/04/2023 9:28 PM [facility] CO2 31(H) 22 - 29 mmol/L 09/04/2023 9:28 PM QUALITY ASSURANCE INTERN [facility] Calcium 9.3 8.4 - 10.4 mg/dL 09/04/2023 9:28 PM [facility] Anion Gap 9 6 - 16 mmol/L 09/04/2023 9:28 PM QUALITY ASSURANCE INTERN [facility] BUN 45(H) 7 - 26 mg/dL 09/04/2023 9:28 PM QUALITY ASSURANCE INTERN [facility] Creatinine 1.27(H) 0.72 - 1.25 mg/dL 09/04/2023 9:28 PM QUALITY ASSURANCE INTERN [facility] Albumin 2.6(L) 3.4 - 5.0 gm/dL 09/04/2023 9:28 PM QUALITY ASSURANCE INTERN [facility] Phosphorus 4.1 2.3 - 4.7 mg/dL 09/04/2023 9:28 PM QUALITY ASSURANCE INTERN [facility] eGFR by CKD-EPI 59(L) >=90 mL/min/1.7 3 m2 09/04/2023 9:28 PM QUALITY ASSURANCE INTERN [facility] Blood BLOOD SPECIMEN / Unknown Venipuncture / Unknown 09/04/2023 9:07 PM QUALITY ASSURANCE INTERN 09/04/2023 9:13 PM QUALITY ASSURANCE INTERN Nat Lemons MD LAB - CHEMISTRY LOLIS [place] Performing Organization Address City/[facility]/ZIP Co de Phone Number [facility] [address] [place] [address] * CULTURE BLOOD (09/04/2023 2:26 PM QUALITY ASSURANCE INTERN) Only the most recent of4 resultswithin the time period is included. Pathologist [facility] Culture No growth day 5 KARTHIKEYAN 09/09/2023 8:01 PM QUALITY ASSURANCE INTERN [facility] Blood PERIPHERAL BLOOD / Unknown Venipuncture / Unknown 09/04/2023 2:26 PM QUALITY ASSURANCE INTERN 09/04/2023 2:42 PM QUALITY ASSURANCE INTERN Chanda Casillas MD LAB - MICROBIOLOGY O RDERABLES [facility] [address] [place], [place] [id number] [place] [address] * MRSA DNA PCR (09/04/2023 1:34 PM QUALITY ASSURANCE INTERN) MRSA DNA by PCR Not detected Not detected 09/04/2023 9:40 PM QUALITY ASSURANCE INTERN [facility] Microbiology SPECIMEN FROM NASAL FOSSAE / Unknown Collection / Unknown 09/04/2023 1:34 PM QUALITY ASSURANCE INTERN 09/04/2023 2:42 PM QUALITY ASSURANCE INTERN Narrative [facility] - 09/04/2023 9:40 PM QUALITY ASSURANCE INTERN Methicillin-resistant Staphylococcus aureus (MRSA) DNA is not detected (presumed not colonized with MRSA). Chanda Casillas MD LAB - MICROBIOLOGY O LORAINE Performing Organization Address [facility] de Phone Number [facility] [address] [place] [address], [facility] [phone] * CULTURE SPUTUM+GRAM STAIN (09/04/2023 10:56 AM QUALITY ASSURANCE INTERN) Culture Rare normal oropharyngeal chani KARTHIKEYAN 09/06/2023 5:36 AM QUALITY ASSURANCE INTERN [facility] Gram Stain Light Polymorphonuclear cells 09/06/2023 5:36 AM QUALITY ASSURANCE INTERN [facility] Gram Stain Rare Gram-positive cocci 09/06/2023 5:36 AM QUALITY ASSURANCE INTERN [facility] Gram Stain Rare Gram-positive bacilli 09/06/2023 5:36 AM [facility] Microbiology SPUTUM / Unknown Collection / Unknown 09/04/2023 10:56 AM QUALITY ASSURANCE INTERN 09/04/2023 11:06 AM QUALITY ASSURANCE INTERN Chanda Casillas MD LAB - MICROBIOLOGY O LORAINE Performing Organization Address [facility] Phone Number [facility] [address] [place] [address], [facility] [phone] * LACTIC ACID BLOOD (09/04/2023 6:45 AM QUALITY ASSURANCE INTERN) Only the most recent of2 resultswithin the time period is included. Lactic Acid 1.6 <=2 mmol/L 09/04/2023 7:03 AM QUALITY ASSURANCE INTERN [facility] Blood BLOOD SPECIMEN / Unknown Venipuncture / Unknown 09/04/2023 6:45 AM QUALITY ASSURANCE INTERN 09/04/2023 6:48 AM QUALITY ASSURANCE INTERN Chanda Casillas MD LAB - CHEMISTRY LOLIS [place] Performing Organization Address [facility]/ZIP Co de Phone Number [facility] [address] [place] [address] * (ABNORMAL) HEMOGLOBIN A1C (09/04/2023 4:30 AM QUALITY ASSURANCE INTERN) [facility] Hemoglobin A1c 6.0(H) <5.7 % 09/04/2023 6:01 AM [facility] Estimated Average Glucose 126 mg/dL 09/04/2023 6:01 AM [facility] Blood BLOOD SPECIMEN / Unknown Venipuncture / Unknown 09/04/2023 4:30 AM QUALITY ASSURANCE INTERN 09/04/2023 4:48 AM QUALITY ASSURANCE INTERN Narrative [facility] - 09/04/2023 6:01 AM QUALITY ASSURANCE INTERN HbA1c Interpretation: Normal: < 5.7% Pre-diabetes: 5.7-6.4% Diabetes: Equal to or greater than 6.5% Test results diagnostic of diabetes should be repeated for confirmation. Treatment target values recommended by ADA and other clinical organizations should be used to evaluate metabolic control in patients. This test should not replace glucose testing for patients with Type 1 diabetes, pediatric patients, or women. Falsely low HbA1c results may be observed in patients with clinical conditions that shorten erythrocyte life span or decrease mean erythrocyte age such as the presence of unstable hemoglobin variants, elevated hemoglobin F level or other causes of hemolytic anemia. HbA1c may not accurately reflect glycemic control when clinical conditions that affect erythrocyte survival are present. Severe Iron deficiency anemia may yield falsely high results. Hemoglobin A1c assay should not be used to diagnose or monitor diabetes in patients with malignancy, recent blood transfusion, chronic kidney or liver disease. This method may yield falsely low results when hemoglobin (HbF) exceeds 5% in the specimen. The Paige Alinity assay for the measurement of HbA1c is a National Glycohemoglobin Standardization Program (NGSP) certified method. Chanda Casillas MD LAB - CHEMISTRY LOLIS [place] Organization Address City/State/ZIP Co de Phone Number [facility] [address] [place] [address] * RESPIRATORY PANEL WITH SARS-COV-2 BY PCR (STL) (09/03/2023 6:28 PM QUALITY ASSURANCE INTERN) Only the most recent of2 resultswithin the time period is included. [facility] Adenovirus PCR Not detected Not detected 09/04/2023 3:11 AM QUALITY ASSURANCE INTERN [facility] Coronavirus 229E PCR Not detected Not detected 09/04/2023 3:11 AM QUALITY ASSURANCE INTERN [facility] Coronavirus HKU1 PCR Not detected Not detected 09/04/2023 3:11 AM QUALITY ASSURANCE INTERN [facility] Coronavirus NL63 PCR Not detected Not detected 09/04/2023 3:11 AM QUALITY ASSURANCE INTERN [facility] Coronavirus OC43 PCR Not detected Not detected 09/04/2023 3:11 AM QUALITY ASSURANCE INTERN [facility] COVID-19 PCR Not detected Not detected 09/04/2023 3:11 AM QUALITY ASSURANCE INTERN [facility] Human Metapneumovirus PCR Not detected Not detected 09/04/2023 3:11 AM QUALITY ASSURANCE INTERN [facility] Human Rhinovirus/Enterov irus PCR Not detected Not detected 09/04/2023 3:11 AM QUALITY ASSURANCE INTERN [facility] Influenza A PCR Not detected Not detected 09/04/2023 3:11 AM QUALITY ASSURANCE INTERN [facility] Influenza B PCR Not detected Not detected 09/04/2023 3:11 AM QUALITY ASSURANCE INTERN [facility] Parainfluenza Virus 1 PCR Not detected Not detected 09/04/2023 3:11 AM QUALITY ASSURANCE INTERN [facility] Parainfluenza Virus 2 PCR Not detected Not detected 09/04/2023 3:11 AM QUALITY ASSURANCE INTERN [facility] Parainfluenza Virus 3 PCR Not detected Not detected 09/04/2023 3:11 AM QUALITY ASSURANCE INTERN [facility] Parainfluenza Virus 4 PCR Not detected Not detected 09/04/2023 3:11 AM QUALITY ASSURANCE INTERN [facility] Respiratory Syncytial Virus PCR Not detected Not detected 09/04/2023 3:11 AM QUALITY ASSURANCE INTERN [facility] Bordetella parapertussis PCR Not detected Not detected 09/04/2023 3:11 AM QUALITY ASSURANCE INTERN [facility] Bordetella pertussis PCR Not detected Not detected 09/04/2023 3:11 AM QUALITY ASSURANCE INTERN [facility] Chlamydia pneumoniae PCR Not detected Not detected 09/04/2023 3:11 AM QUALITY ASSURANCE INTERN [facility] Mycoplasma pneumoniae PCR Not detected Not detected 09/04/2023 3:11 AM QUALITY ASSURANCE INTERN [facility] Microbiology SPECIMEN FROM NASOPHARYNGEAL STRUCTURE / Unknown Collection / Unknown 09/03/2023 6:28 PM QUALITY ASSURANCE INTERN 09/03/2023 6:34 PM QUALITY ASSURANCE INTERN Narrative [facility] - 09/04/2023 3:11 AM QUALITY ASSURANCE INTERN This nucleic amplification assay has received FDA authorization via the [employer]. Chanda Casillas MD LAB - MICROBIOLOGY O RDERABLES Performing Organization Address [facility] de Phone Number [facility] [address] [place] [address], [facility] [phone] * STREP PNEUMONIAE ANTIGEN URINE (09/03/2023 6:28 PM QUALITY ASSURANCE INTERN) Streptococcus pneumoniae Antigen Urine Negative Negative 09/04/2023 6:37 AM QUALITY ASSURANCE INTERN [facility] Urine URINE / Unknown Collection / Unknown 09/03/2023 6:28 PM QUALITY ASSURANCE INTERN 09/03/2023 6:32 PM QUALITY ASSURANCE INTERN Narrative [facility] - 09/04/2023 6:37 AM QUALITY ASSURANCE INTERN Patients who have received the Streptococcus pneumoniae vaccines may test positive in the 48 hours following vaccination. It is recommended to avoid testing within five days of receiving vaccination. Testing pediatric patients is discouraged because of their high rates of nasal colonization with Streptococcus pneumoniae leading to false positive results. Samples from patients taking antibiotics for more than 24 hours may cause false negatives. Chanda Casillas MD LAB - MICROBIOLOGY O LORAINE Performing Organization Address [facility] de Phone Number [facility] [address] [place] [address], [facility] [phone] * XR CHEST 1VW PORTABLE (09/03/2023 5:39 PM QUALITY ASSURANCE INTERN) Only the most recent of2 resultswithin the time period is included. Anatomical Region Laterality Modality Chest Radiographic Silvia ging 09/03/2023 5:56 PM QUALITY ASSURANCE INTERN Impressions 09/03/2023 5:57 PM QUALITY ASSURANCE INTERN IMPRESSION: 1. Tubes and catheters as described 2. Residual left basilar streaky atelectasis > Interpreting Provider: Tamara Santiago MD on 09/03/2023 5:57 PM Narrative 09/03/2023 5:57 PM QUALITY ASSURANCE INTERN PROCEDURE: XR CHEST 1VW PORTABLE DATE/TIME OF EXAM: 09/03/2023 5:39 PM CLINICAL INFORMATION: None relevant/not provided if blank. Indication: J44.1: Chronic obstructive pulmonary disease with (acute) exacerbation ([facility]-HCC) Additional History: COMPARISON: Chest from 0830 hours today FINDINGS: The endotracheal tube still ends midway to the clavicles and liberty. A nasogastric tube enters stomach and extends beyond the limits of the film. A right jugular catheter still ends of the mid superior vena cava. There is some streaky atelectasis in the left lung base but the lungs are otherwise clear. There is a small amount of opaque material in the stomach. Procedure Note Tamara Santiago MD - 09/03/2023 PROCEDURE: XR CHEST 1VW PORTABLE DATE/TIME OF EXAM: 09/03/2023 5:39 PM CLINICAL INFORMATION: None relevant/not provided if blank. Indication: J44.1: Chronic obstructive pulmonary disease with (acute) exacerbation (CMS-HCC) Additional History: COMPARISON: Chest from 0830 hours today FINDINGS: The endotracheal tube still ends midway to the clavicles and liberty. A nasogastric tube enters stomach and extends beyond the limits of the film. A right jugular catheter still ends of the mid superior vena cava.There is some streaky atelectasis in the left lung base but the lungs are otherwise clear. There is a small amount of opaque material in the stomach. IMPRESSION: 1. Tubes and catheters as described 2. Residual left basilar streaky atelectasis > Interpreting Provider: Tamara Santiago MD on 09/03/2023 5:57 PM Chanda Casillas MD DIAGNOSTIC IMAGING O RDERABLES * XR ABDOMEN 1 VW (09/03/2023 5:38 PM QUALITY ASSURANCE INTERN) Anatomical Region Laterality Modality Abdomen Radiographic Silvia ging 09/03/2023 5:57 PM QUALITY ASSURANCE INTERN Impressions 09/03/2023 5:57 PM QUALITY ASSURANCE INTERN IMPRESSION: NG tube ends in the stomach > Interpreting Provider: Tamara Santiago MD on 09/03/2023 5:57 PM Narrative 09/03/2023 5:57 PM QUALITY ASSURANCE INTERN PROCEDURE: XR ABDOMEN KUB DATE/TIME OF EXAM: 09/03/2023 5:38 PM CLINICAL INFORMATION: None relevant/not provided if blank. Indication: J44.1: Chronic obstructive pulmonary disease with (acute) exacerbation (CMS-HCC) Additional History: COMPARISON: None. FINDINGS: Nasogastric tube ends in the mid to distal stomach. There is a small amount of oral contrast within the stomach. Visualized bowel gas pattern is normal. An aortobiiliac stent is seen. Procedure Note Tamara Santiago MD - 09/03/2023 PROCEDURE: XR ABDOMEN KUB DATE/TIME OF EXAM: 09/03/2023 5:38 PM CLINICAL INFORMATION: None relevant/not provided if blank. Indication: J44.1: Chronic obstructive pulmonary disease with (acute) exacerbation (CMS-HCC) Additional History: COMPARISON: None. FINDINGS: Nasogastric tube ends in the mid to distal stomach. There is a small amount of oral contrast within the stomach. Visualized bowel gaspattern is normal. An aortobiiliac stent is seen. IMPRESSION: NG tube ends in the stomach > Interpreting Provider: Tamara Santiago MD on 09/03/2023 5:57 PM Chanda Casillas MD DIAGNOSTIC IMAGING O RDERABLES * C-REACTIVE PROTEIN (09/03/2023 5:33 PM QUALITY ASSURANCE INTERN) C-Reactive Protein 0.36 <=0.50 mg/dL 09/03/2023 6:01 PM QUALITY ASSURANCE INTERN [facility] Blood BLOOD SPECIMEN / Unknown Venipuncture / Unknown 09/03/2023 5:33 PM QUALITY ASSURANCE INTERN 09/03/2023 5:42 PM QUALITY ASSURANCE INTERN Chanda Casillas MD LAB - CHEMISTRY LOLIS [place] [facility] Organization Address City/State/ZIP Co de Phone Number [facility] [address] [place] [address] * PHOSPHORUS BLOOD (09/03/2023 5:33 PM QUALITY ASSURANCE INTERN) Phosphorus 3.6 2.3 - 4.7 mg/dL 09/03/2023 6:01 PM QUALITY ASSURANCE INTERN [facility] Blood BLOOD SPECIMEN / Unknown Venipuncture / Unknown 09/03/2023 5:33 PM QUALITY ASSURANCE INTERN 09/03/2023 5:42 PM QUALITY ASSURANCE INTERN Chanda Casillas MD LAB - CHEMISTRY LOLIS [place] [facility] [address] [place] [address] * (ABNORMAL) BLOOD GASES ARTERIAL (09/03/2023 5:00 PM QUALITY ASSURANCE INTERN) Only the most recent of6 resultswithin the time period is included. pH Arterial 7.39 7.35 - 7.45 pH 09/03/2023 5:10 PM QUALITY ASSURANCE INTERN [facility] pO2 Arterial 83 80 - 100 mmHg 09/03/2023 5:10 PM QUALITY ASSURANCE INTERN [facility] pCO2 Arterial 58(H) 35 - 45 mmHg 09/03/2023 5:10 PM QUALITY ASSURANCE INTERN [facility] HCO3 Arterial 35.1(H) 22.0 - 26.0 mmol/L 09/03/2023 5:10 PM QUALITY ASSURANCE INTERN [facility] BE Arterial 8.1(H) -2.0 - 2.0 mmol/L 09/03/2023 5:10 PM QUALITY ASSURANCE INTERN [facility] O2 Saturation Arterial 98 90 - 100 % 09/03/2023 5:10 PM QUALITY ASSURANCE INTERN [facility] Bentley's Test Positive 09/03/2023 5:10 PM QUALITY ASSURANCE INTERN [facility] Mode CMV 09/03/2023 5:10 PM QUALITY ASSURANCE INTERN [facility] FI O2 40.0 % 09/03/2023 5:10 PM QUALITY ASSURANCE INTERN [facility] Mechanical Tidal Volume (mL) 500 09/03/2023 5:10 PM QUALITY ASSURANCE INTERN [facility] Mechanical Respiratory Rate (bpm) 20 09/03/2023 5:10 PM QUALITY ASSURANCE INTERN [facility] PEEP (cmH2O) 10 09/03/2023 5:10 PM QUALITY ASSURANCE INTERN [facility] P/F Ratio 208 09/03/2023 5:10 PM QUALITY ASSURANCE INTERN [facility] Blood, arterial ARTERIAL BLOOD SPECIMEN / Unknown 09/03/2023 5:00 PM QUALITY ASSURANCE INTERN 09/03/2023 5:00 PM QUALITY ASSURANCE INTERN Chanda Casillas MD LAB - BLOOD GASES OR DERABLES [facility] [address] [phone] * CT HEAD WO CONTRAST (09/03/2023 11:43 AM QUALITY ASSURANCE INTERN) Anatomical Region Laterality Modality Head Computed Tomogra phy 09/03/2023 11:5 2 AM QUALITY ASSURANCE INTERN Impressions 09/03/2023 11:53 AM QUALITY ASSURANCE INTERN IMPRESSION: No acute intracranial abnormalities. > Interpreting Provider: Radha Montiel MD on 09/03/2023 11:53 AM Narrative 09/03/2023 11:53 AM QUALITY ASSURANCE INTERN PROCEDURE(s): CT HEAD WO CONTRAST DATE AND TIME OF EXAM(s): 09/03/2023 11:44 AM INDICATION(s): R06.02: Shortness of breath R41.82: Altered mental status, unspecified COMPARISON(s): None available. TECHNIQUE: CT of the head was performed from the skull base to the vertex without contrast administration. Multiplanar reconstructions were reviewed. Dose reduction techniques were utilized. FINDINGS: There is no visible soft tissue trauma or skull fracture. There is no acute intracranial hemorrhage, midline shift, mass effect, or intra-axial or extra-axial fluid collection. Acosta-white matter differentiation is preserved. There is no evidence of acute cortical infarct. The ventricles and sulci are unremarkable. The basal cisterns are patent. The orbital contents are unremarkable bilaterally. The visualized paranasal sinuses and mastoid air cells are clear. There is partial visualization of orogastric and endotracheal tubes. Procedure Note Radha Montiel MD - 09/03/2023 PROCEDURE(s): CT HEAD WO CONTRAST DATE AND TIME OF EXAM(s): 09/03/2023 11:44 AM INDICATION(s): R06.02: Shortness of breath R41.82: Altered mental status, unspecified COMPARISON(s): None available. TECHNIQUE: CT of the head was performed from the skull base to thevertex without contrast administration. Multiplanar reconstructions werereviewed. Dose reduction techniques were utilized. FINDINGS: There is no visible soft tissue trauma or skull fracture. There is noacute intracranial hemorrhage, midline shift, mass effect, or intra-axial or extra-axial fluid collection. Acosta-white matter differentiation is preserved. There is no evidence of acute cortical infarct. Theventricles and sulci are unremarkable. The basal cisterns are patent. The orbital contents are unremarkable bilaterally. The visualizedparanasal sinuses and mastoid air cells are clear. There is partial visualization of orogastric and endotracheal tubes. IMPRESSION: No acute intracranial abnormalities. > Interpreting Provider: Radha Montiel MD on 09/03/2023 11:53 AM [address]is Pabon MD CT ORDERABLES * (ABNORMAL) POTASSIUM BLOOD (09/03/2023 11:20 AM QUALITY ASSURANCE INTERN) Potassium 5.2(H) 3.5 - 5.1 mmol/L 09/03/2023 11:33 AM QUALITY ASSURANCE INTERN [facility] Blood BLOOD SPECIMEN / Unknown Venipuncture / Unknown 09/03/2023 11:20 AM QUALITY ASSURANCE INTERN 09/03/2023 11:22 AM QUALITY ASSURANCE INTERN Nargis Pabon MD [facility] Organization Address City/State/ZIP Co de Phone Number [facility] [address] [place] [address] * URINE DRUG SCREEN IMMUNOASSAY (09/03/2023 8:32 AM QUALITY ASSURANCE INTERN) Amphetamines Screen Urine Not detected Not detected 09/03/2023 9:00 AM QUALITY ASSURANCE INTERN [facility] Barbiturates Screen Urine Not detected Not detected 09/03/2023 9:00 AM QUALITY ASSURANCE INTERN [facility] Benzodiazepines Screen Urine Not detected Not detected 09/03/2023 9:00 AM [facility] Cannabinoids Screen Urine Not detected Not detected 09/03/2023 9:00 AM QUALITY ASSURANCE INTERN [facility] Cocaine Screen Urine Not detected Not detected 09/03/2023 9:00 AM QUALITY ASSURANCE INTERN [facility] Fentanyl Urine Not detected Not detected 09/03/2023 9:00 AM [facility] Methadone Screen Urine Not detected Not detected 09/03/2023 9:00 AM QUALITY ASSURANCE INTERN [facility] Opiate Screen Urine Not detected Not detected 09/03/2023 9:00 AM [facility] Phencyclidine Screen Urine Not detected Not detected 09/03/2023 9:00 AM QUALITY ASSURANCE INTERN [facility] Urine URINE / Unknown Collection / Unknown 09/03/2023 8:32 AM QUALITY ASSURANCE INTERN 09/03/2023 8:46 AM QUALITY ASSURANCE INTERN Narrative [facility] - 09/03/2023 9:00 AM QUALITY ASSURANCE INTERN This drug screen is designed for MEDICAL purposes only. It is not to be used for legal purposes, including but not limited to worker's comp, police investigations, occupational issues, child custody, etc. Any positive result is only presumptive and must be confirmed with a separate confirmatory test ordered by the physician. Drug Screening Test Cutoff Values: AMPHETAMINES 1000 ng/mL BARBITURATES 200 ng/mL BENZODIAZEPINES 200 ng/mL CANNABINOIDS(THC) 50 ng/mL COCAINE 300 ng/mL FENTANYL 1 ng/mL METHADONE 300 ng/mL OPIATES 300 ng/mL PHENCYCLIDINE(PCP) 25 ng/mL Nargis Pabon MD LAB - URINE CHEMISTR Y ORDERABLES Performing Organization Address City/State/[facility] Co de Phone Number [facility] [address] [place] [address] * XR CHEST POST CENTRAL LINE (09/03/2023 8:24 AM QUALITY ASSURANCE INTERN) Only the most recent of2 resultswithin the time period is included. Anatomical Region Laterality Modality Chest Radiographic Silvia ging 09/03/2023 8:27 AM QUALITY ASSURANCE INTERN Narrative 09/03/2023 8:28 AM QUALITY ASSURANCE INTERN PROCEDURE: XR CHEST 1VW PORTABLE DATE/TIME OF EXAM: 09/03/2023 8:24 AM CLINICAL INFORMATION: None relevant/not provided if blank. Indication: Z45.2: Encounter for adjustment and management of vascular access device Difficulty breathing COMPARISON: 09/03/2023 FINDINGS: Endotracheal tube terminates thoracic trachea. Right neck central venous catheter terminates SVC. Esophogastric tube extends beyond the inferior margin of the film. Patchy left basilar atelectasis versus infiltrate. Mild basilar congestion. Mild cardiomegaly. No pneumothorax. > Interpreting Provider: Loree Mcneil MD on 09/03/2023 8:28 AM Procedure Note Loree Mcneil MD - 09/06/2023 PROCEDURE: XR CHEST 1VW PORTABLE DATE/TIME OF EXAM: 09/03/2023 8:24 AM CLINICAL INFORMATION: None relevant/not provided if blank. Indication: Z45.2: Encounter for adjustment and management of vascular access device Difficulty breathing COMPARISON: 09/03/2023 FINDINGS: Endotracheal tube terminates thoracic trachea. Right neck central venous catheter terminates SVC. Esophogastric tube extends beyond the inferior margin of the film. Patchy left basilar atelectasis versus infiltrate. Mild basilarcongestion. Mild cardiomegaly. No pneumothorax. > Interpreting Provider: Loree Mcneil MD on 09/03/2023 8:28 AM Nargis Pabon MD DIAGNOSTIC IMAGING O RDERABLES * Central Line (09/03/2023 8:20 AM QUALITY ASSURANCE INTERN) Narrative Nargis Pabon MD - 09/03/2023 8:20 AM QUALITY ASSURANCE INTERN Nargis Pabon MD 09/03/2023 8:20 AM Central Line Date/Time: 09/03/2023 8:20 AM Performed by: Nargis Pabon MD Authorized by: Anatoly Wang MD Consent: Consent obtained: Emergent situation Pre-procedure details: Indication(s): central venous access and insufficient peripheral access Hand hygiene: Hand hygiene performed prior to insertion Sterile barrier technique: All elements of maximal sterile technique followed Skin preparation: Chlorhexidine Skin preparation agent: Skin preparation agent completely dried prior to procedure Sedation: Sedation type: Moderate sedation Anesthesia: Anesthesia method: None Procedure details: Location: R internal jugular Patient position: Supine Procedural supplies: Triple lumen Catheter size: 7 Fr Landmarks identified: yes Ultrasound guidance: yes Ultrasound guidance timing: prior to insertion and real time Sterile ultrasound techniques: Sterile gel and sterile probe covers were used Number of attempts: 1 Successful placement: yes Post-procedure details: Post-procedure: Dressing applied and line sutured Assessment: Blood return through all ports, free fluid flow, placement verified by x-ray and no pneumothorax on x-ray Procedure completion: Tolerated well, no immediate complications Anatoly Wang MD PROCEDURE/MINOR SURG ICAL ORDERABLES * LEGIONELLA ANTIGEN URINE (09/03/2023 8:18 AM QUALITY ASSURANCE INTERN) Legionella Antigen Urine Negative Negative 09/04/2023 6:32 AM QUALITY ASSURANCE INTERN [facility] Urine URINE / Unknown Collection / Unknown 09/03/2023 8:18 AM QUALITY ASSURANCE INTERN 09/03/2023 8:31 AM QUALITY ASSURANCE INTERN Narrative [facility] - 09/04/2023 6:32 AM QUALITY ASSURANCE INTERN This assay detects Legionella pneumophila serogroup one (1) antigen. A negative test result does not rule out the possibility of Legionella infection due to other serogroups or species of Legionella. A positive result may indicate a recent or remote infection with serogroup 1. Aantoly Wang MD LAB - MICROBIOLOGY O RDERABLES [facility] [address] [place] [address], [facility] [phone] * (ABNORMAL) URINE MICROSCOPIC ONLY REFLEX TO CULTURE (09/03/2023 8:17 AM QUALITY ASSURANCE INTERN) Reflex Status Culture not indicated 09/03/2023 8:51 AM QUALITY ASSURANCE INTERN [facility] RBC UA 0-2 0 - 5 # /hpf 09/03/2023 8:51 AM QUALITY ASSURANCE INTERN [facility] WBC UA 0-5 0 - 5 # /hpf 09/03/2023 8:51 AM QUALITY ASSURANCE INTERN [facility] Bacteria UA Trace(A) None Seen 09/03/2023 8:51 AM QUALITY ASSURANCE INTERN [facility] Squamous Epithelial Cells None Seen 0 - 5 /hpf 09/03/2023 8:51 AM QUALITY ASSURANCE INTERN [facility] Mucus UA 1+ /LPF 09/03/2023 8:51 AM QUALITY ASSURANCE INTERN [facility] Hyaline Casts 3-5(A) 0 - 2 /LPF 09/03/2023 8:51 AM QUALITY ASSURANCE INTERN [facility] Urine URINE SPECIMEN OBTAINED BY CLEAN CATCH PROCEDURE / Unknown Collection / Unknown 09/03/2023 8:17 AM QUALITY ASSURANCE INTERN 09/03/2023 8:31 AM QUALITY ASSURANCE INTERN Narrative [facility] - 09/03/2023 8:51 AM QUALITY ASSURANCE INTERN Anatoly Wang MD LAB - URINALYSIS ORD ERABLES [facility] [address] [place] [address] * (ABNORMAL) URINALYSIS REFLEX MICROSCOPIC REFLEX CULTURE (09/03/2023 8:17 AM QUALITY ASSURANCE INTERN) Color UA Yellow Straw, Yellow 09/03/2023 8:38 AM QUALITY ASSURANCE INTERN [facility] Clarity UA Clear Clear 09/03/2023 8:38 AM [facility] Glucose UA Negative Negative 09/03/2023 8:38 AM [facility] Bilirubin UA Negative Negative 09/03/2023 8:38 AM [facility] Ketone UA Negative Negative 09/03/2023 8:38 AM [facility] Specific Willard UA 1.020 1.005 - 1.030 09/03/2023 8:38 AM [facility] Blood UA Negative Negative 09/03/2023 8:38 AM [facility] pH UA 5.0 5.0 - 8.0 pH 09/03/2023 8:38 AM [facility] Protein UA 1+(A) Negative 09/03/2023 8:38 AM [facility] Urobilinogen UA Negative Negative mg/dL 09/03/2023 8:38 AM [facility] Nitrite UA Negative Negative 09/03/2023 8:38 AM [facility] Leukocyte UA Negative Negative 09/03/2023 8:38 AM [facility] Urine Microscopy Urine microscopy to follow 09/03/2023 8:38 AM [facility] Reflex Status Culture not indicated 09/03/2023 8:38 AM [facility] Urine URINE SPECIMEN OBTAINED BY CLEAN CATCH PROCEDURE / Unknown Collection / Unknown 09/03/2023 8:17 AM QUALITY ASSURANCE INTERN 09/03/2023 8:31 AM QUALITY ASSURANCE INTERN Narrative [facility] - 09/03/2023 8:38 AM QUALITY ASSURANCE INTERN Anatoly Wang MD LAB - URINALYSIS ORD ERABLES [facility] [address] [place] [address] * TROPONIN-I HIGH SENSITIVE REFLEX 1HOUR (09/03/2023 8:15 AM QUALITY ASSURANCE INTERN) Troponin I High Sensitive 32 <=35 ng/L 09/03/2023 9:00 AM [facility] Delta Troponin I HS 09/03/2023 9:00 AM QUALITY ASSURANCE INTERN [facility] Comment:Delta value intentio garo not calculated. Baseline to 1 hour specimen collection interval exceeded. Blood BLOOD SPECIMEN / Unknown Venipuncture / Unknown 09/03/2023 8:15 AM QUALITY ASSURANCE INTERN 09/03/2023 8:31 AM QUALITY ASSURANCE INTERN Anatoly Wang MD LAB - CHEMISTRY LOLIS APODACA Performing Organization Address City/[facility]/ZIP Co de Phone Number [facility] [address] [place] [address] * (ABNORMAL) PROCALCITONIN LEVEL (09/03/2023 8:15 AM QUALITY ASSURANCE INTERN) Procalcitonin 0.13(H) <0.10 ng/mL 09/03/2023 9:11 AM QUALITY ASSURANCE INTERN [facility] Blood BLOOD SPECIMEN / Unknown Venipuncture / Unknown 09/03/2023 8:15 AM QUALITY ASSURANCE INTERN 09/03/2023 8:31 AM QUALITY ASSURANCE INTERN Narrative [facility] - 09/03/2023 9:11 AM QUALITY ASSURANCE INTERN The change in procalcitonin (PCT) concentration over time provides support in decision making on antibiotic discontinuation for suspected or confirmed septic patients. Follow-up samples should be tested once every 1-2 days based upon physician discretion taking into account the patient s evolution and progress. Consider discontinuation of antibiotic therapy if the PCT current is <= 0.5 ng/mL or if the delta PCT is > 80%. Duration of antibiotics should not be determined solely on PCT; established guidelines for the indication should be followed. PCT peak: Highest observed PCT concentration PCT current: Most recent PCT concentration Calculate delta PCT using the following equation: Delta PCT = PCT Peak PCT current X 100% PCT Peak The Change in Procalcitonin Calculator is available at [email or web address] If clinical picture has not improved and PCT remains high, reevaluate and consider treatment failure or other causes. Mariela Meza MD LAB - CHEMISTRY LOLIS APODACA [facility] [address] [place] [address] * CT ANGIO CHEST PULM EMBOLISM (09/03/2023 4:03 AM QUALITY ASSURANCE INTERN) Anatomical Region Laterality Modality Chest Computed Tomogra phy 09/03/2023 7:45 AM QUALITY ASSURANCE INTERN Impressions 09/03/2023 7:49 AM QUALITY ASSURANCE INTERN IMPRESSION: Bibasal consolidation favoring atelectasis. Enlarged central pulmonary vasculature suggesting chronic pulmonary artery hypertension. Mild cardiomegaly. Mild complex perihepatic free fluid. > Interpreting Provider: Loree Mcneil MD on 09/03/2023 7:49 AM Narrative 09/03/2023 7:[address] PULMONARY ANGIOGRAM WITH INTRAVENOUS CONTRAST CT MIP reconstructions Clinical Indication: Acute shortness of breath and hypoxemia. Comparison: None available Technique: Preliminary interpretation was provided by [facility]. The pulmonary embolus protocol was utilized. Axial CT images from the lung apices to the lung bases were obtained following 80 cc Isovue-370 intravenous contrast administration. Coronal maximum intensity projection reconstructions were created on an independent workstation. All CT scans at [facility] are performed using dose optimization techniques as appropriate to a performed exam to include AEC and Adjustment of mA and/or kV according to patient size. Findings: No intra-arterial filling defects to suggest pulmonary embolus. Enlarged central pulmonary arteries suggesting chronic pulmonary artery hypertension. Mild cardiomegaly. Scattered coronary artery calcifications. No pericardial effusion. No lymphadenopathy. Bibasal consolidation most likely representing atelectasis. No pleural effusion. No pneumothorax. No acute bony abnormality. Mild bilateral adrenal gland thickening consistent with mild hyperplasia. Bilateral gynecomastia noted. Small volume of free peritoneal fluid in the upper abdomen. Regions of complexity noted to the right perihepatic fluid suggesting blood or proteinaceous contents. Procedure Note Loree Mcneil MD - 09/03/2023 CT PULMONARY ANGIOGRAM WITH INTRAVENOUS CONTRAST CT MIP reconstructions Clinical Indication: Acute shortness of breath and hypoxemia. Comparison: None available Technique: Preliminary interpretation was provided by [facility]. The pulmonary embolus protocol was utilized. Axial CT images from thelung apices to the lung bases were obtained following 80 cc Isovue-370 intravenous contrast administration. Coronal maximum intensityprojection reconstructions were created on an independent workstation. All CT scansat [facility] are performed using dose optimization techniques as appropriate to a performed exam to include AEC and Adjustment of mA and/or kV accordingto patient size. Findings: No intra-arterial filling defects to suggest pulmonary embolus. Enlarged central pulmonary arteries suggesting chronic pulmonary artery hypertension. Mild cardiomegaly. Scattered coronary artery calcifications. Nopericardial effusion. No lymphadenopathy. Bibasal consolidation most likely representing atelectasis. No pleural effusion. No pneumothorax. No acute bony abnormality. Mild bilateral adrenal gland thickening consistent with mildhyperplasia. Bilateral gynecomastia noted. Small volume of free peritoneal fluid in the upper abdomen. Regions of complexity noted to the right perihepatic fluid suggesting blood or proteinaceous contents. IMPRESSION: Bibasal consolidation favoring atelectasis. Enlarged central pulmonary vasculature suggesting chronic pulmonaryartery hypertension. Mild cardiomegaly. Mild complex perihepatic free fluid. > Interpreting Provider: Loree Mcneil MD on 09/03/2023 7:49 AM Anatoly Wang MD CT ORDERABLES * SARS-COV-2 (COVID-19) FLU A/B RSV PCR RAPID (09/03/2023 12:44 AM QUALITY ASSURANCE INTERN) COVID-19 PCR Not detected Not detected 09/03/20 1:31 AM QUALITY ASSURANCE INTERN [facility] Influenza A PCR Not detected Not detected 09/03/2023 1:31 AM QUALITY ASSURANCE INTERN [facility] Influenza B PCR Not detected Not detected 09/03/2023 1:31 AM QUALITY ASSURANCE INTERN [facility] RSV PCR Not detected Not detected 09/03/2023 1:31 AM QUALITY ASSURANCE INTERN [facility] Microbiology SPECIMEN FROM NASOPHARYNGEAL STRUCTURE / Unknown Collection / Unknown 09/03/2023 12:44 AM QUALITY ASSURANCE INTERN 09/03/2023 12:47 AM QUALITY ASSURANCE INTERN Narrative [facility] - 09/03/2023 1:31 AM QUALITY ASSURANCE INTERN This nucleic acid amplification assay has been authorized by the Food and Drug administration (FDA) under an Emergency Use Authorization (EUA). This test is only authorized for the duration of time the declaration that circumstances exist justifying the authorization of emergency use of in vitro diagnostic tests for detection of SARS-CoV-2 virus and/or diagnosis of COVID-19 infection under section 564(b)(1) of the Act, 21 U.S.C 360bbb-3 (b)(1), unless the authorization is terminated or revoked sooner. Fact Sheets for this EUA assay are available upon request. Anatoly Wang MD LAB - MICROBIOLOGY O RDERABLES Performing Organization Address [facility] Co de Phone Number [facility] [id number] [place] [address] * (ABNORMAL) TROPONIN-I HIGH SENSITIVE BASELINE + 1HR (09/03/2023 12:43 AM QUALITY ASSURANCE INTERN) Troponin I High Sensitive 42(H) <=35 ng/L 09/03/2023 1:10 AM QUALITY ASSURANCE INTERN [facility] Blood BLOOD SPECIMEN / Unknown Venipuncture / Unknown 09/03/2023 12:43 AM QUALITY ASSURANCE INTERN 09/03/2023 12:47 AM QUALITY ASSURANCE INTERN Anatoly Wang MD LAB - CHEMISTRY ORDE RABLES Performing Organization Address [facility] de Phone Number [facility] [address] [place] [address] * (ABNORMAL) D-DIMER (09/03/2023 12:43 AM QUALITY ASSURANCE INTERN) Pathologist [facility] D-Dimer 1.12(H) 0.27 - 0.50 ug/mL FEU 09/03/2023 1:11 AM QUALITY ASSURANCE INTERN [facility] Blood BLOOD SPECIMEN / Unknown Venipuncture / Unknown 09/03/2023 12:43 AM QUALITY ASSURANCE INTERN 09/03/2023 12:47 AM QUALITY ASSURANCE INTERN Narrative [facility] - 09/03/2023 1:11 AM QUALITY ASSURANCE INTERN In the absence of clinical symptoms, a value less than or equal to 0.5 mcg/mL FEU significantly decreases the probability of PE/DVT (negative predictive value >95%). 1 mcg/ml FEU = 1 Fibrinogen Equivalent Unit (approximates 0.5 mcg/mL of D- dimer). Anatoly Wang MD LAB - COAGULATION OR DERABLES Performing Organization Address [facility] de Phone Number [facility] [address] [place] [phone] * (ABNORMAL) B-TYPE NATRIURETIC PEPTIDE (09/03/2023 12:43 AM QUALITY ASSURANCE INTERN) [facility] BNP 443(H) <=100 pg/mL 09/03/2023 1:09 AM QUALITY ASSURANCE INTERN [facility] Blood BLOOD SPECIMEN / Unknown Venipuncture / Unknown 09/03/2023 12:43 AM QUALITY ASSURANCE INTERN 09/03/2023 12:47 AM QUALITY ASSURANCE INTERN Anatoly Wang MD LAB - CHEMISTRY LOLIS APODACA [facility] [address] [place] [address] * Critical Care (09/02/2023 11:10 PM QUALITY ASSURANCE INTERN) Narrative Anatoly Wang MD - 09/02/2023 11:10 PM QUALITY ASSURANCE INTERN Anatoly Wang MD 09/03/2023 2:00 AM Critical Care Performed by: Anatoly Wang MD Authorized by: Anatoly Wang MD Critical care provider statement: Critical care time (minutes): 40 Critical care time was exclusive of: Separately billable procedures and treating other patients Critical care was necessary to treat or prevent imminent or life-threatening deterioration of the following conditions: Respiratory failure Critical care was time spent personally by me on the following activities: Re-evaluation of patient's condition, pulse oximetry and ordering and review of radiographic studies Anatoly Wang MD PROCEDURE/MINOR SURG ICAL ORDERABLES * EKG 12-LEAD (09/02/2023 11:00 PM QUALITY ASSURANCE INTERN) Pathologist [facility] Ventricular Rate 105 BPM [facility] Atrial Rate 105 BPM [facility] P-R Interval 192 ms [facility] QRS Duration ms 86 ms [facility] Q-T Interval ms 334 ms [facility] QTC Calculation (Bezet) 441 ms [facility] Calculated P [place] 52 degrees [facility] Calculated R [place] -138 degrees [facility] Calculated T [place] 30 degrees [facility] Interpretation EKG Sinus tachycardia Right superior axis deviation Septal infarct , age undetermined Abnormal ECG No previous ECGs available Confirmed by SANJAY PACK MD ([id number]) on 09/06/2023 8:13:50 AM [facility] 09/02/2023 11:0 0 PM QUALITY ASSURANCE INTERN 09/06/2023 8:13 AM QUALITY ASSURANCE INTERN Anatoly Wang MD ECG ORDERABLES [facility]
--- OUTSIDE RECORDS SUMMARY | 2024-10-11 11:28 | XMS_ITS | Encounter Summary ---
Author Organization [facility] Address [facility] [place] [address] Care Team Providers Care Perl Developer Name Role Phone Colton Emanuel MD Primary Care Provider [phone] Noé Lam MD Unavailable Unavailabl e Encounter Details Date Type Department Care Team (Late st Contact Info) Description 02/23/2019 Abstract [facility] AT [address] [place] [id number] Noé Lam MD Social History Tobacco Use Types Packs/Day Years Used Date Smoking Tobacco: Every Day Smokeless Tobacco: Never Alcohol Use Standard Drinks/Week Comments Yes 0 (1 standard drink = 0.6 oz pur e alcohol) AUDIT-C Answer Date Recorded Frequency of Alcohol Consumption 2-4 times a tue02/09/2019 Average Number of Drinks Not on file 019 Frequency of Binge Drinking Not on file 03/2019 Sex and Gender Information Value Date Recorded Sex Assigned at Not on file Legal Sex Male 3:15 PM CDT Gender Identity Not on file Sexual Orientation Not on file Occupation Industry Job Start Date Job End Date retired Not on file Not on file Not on file documented as of this encounter Plan of Treatment Not on file documented as of this encounter Procedures Procedure Name Priority Date/Time Associated Diagnosis Comments BNP Routine 02/23/2019 S/P primary angioplasty with coronary stent Obesity Mixed hyperlipidemia Gout COPD (chronic obstructive pulmonary disease) ([facility]/HCC) Benign essential HTN Abdominal aortic aneurysm (AAA) without rupture COMPREHENSIVE METABOLIC PANEL Routine 02/23/2019 S/P primary angioplasty with coronary stent Obesity Mixed hyperlipidemia Gout COPD (chronic obstructive pulmonary disease) ([facility]/HCC) Benign essential HTN Abdominal aortic aneurysm (AAA) without rupture THYROID STIM HORMONE TSH Routine 02/23/2019 S/P primary angioplasty with coronary stent Obesity Mixed hyperlipidemia Gout COPD (chronic obstructive pulmonary disease) (CMS/HCC HHS/HCC) Benign essential HTN Abdominal aortic aneurysm (AAA) without rupture MAGNESIUM Routine 02/23/2019 S/P primary angioplasty with coronary stent Obesity Mixed hyperlipidemia Gout COPD (chronic obstructive pulmonary disease) (CMS/HCC HHS/HCC) Benign essential HTN Abdominal aortic aneurysm (AAA) without rupture documented in this encounter Results * MAGNESIUM (02/23/2019) Pathologist [facility] MAGNESIUM 2.1 02/23/2019 Noé Lam MD LABORATORY Final Resul t * BNP (02/23/2019) Pathologist [facility] B TYPE NATRIURETIC PEPTIDE 7 02/23/2019 Noé Lam MD LABORATORY Final Resul t * TSH (02/23/2019) Pathologist [facility] TSH 1.6 02/23/2019 Noé Lam MD LABORATORY Final Resul t * COMPREHENSIVE METABOLIC PANEL (02/23/2019) Pathologist [facility] SODIUM S/P/B 138 POTASSIUM S/P/B 5.1 CO2 32 CHLORIDE S/P/B 99 GLUCOSE 115 mg/dL CALCIUM S/P/B 9.6 BUN 23 CREATININE S/P/B 1.2 0.7 - 1.3 ALKALINE PHOSPHATASE S/P/B 145 ALT 14 AST 12 BILIRUBIN TOTAL S/P/B 0.34 ALBUMIN S/P/B 3.9 3.5 - 5.0 TOTAL PROTEIN S/P/B 7.4 02/23/2019 us Noé Lam MD LABORATORY Final Resul t documented in this encounter Visit Diagnoses Diagnosis S/P primary angioplasty with coronary stent Postsurgical percutaneous transluminal coronary angioplasty status Obesity Obesity, unspecified Mixed hyperlipidemia Gout Gout, unspecified COPD (chronic obstructive pulmonary disease) ([facility]/HCC) Chronic airway obstruction, not elsewhere classified Benign essential HTN Essential hypertension, benign Abdominal aortic aneurysm (AAA) without rupture ([facility]) documented in this encounter Care Teams Perl Developer Relationship Specialty Start Date End Date Colton Emanuel MD [address] [place] [address] PCP - General FAMILY PRACTICE 01/01/19 Noé Lam MD [address] [place] [address] Harper Nursing Techn CARDIOVASCULAR DISEASE 01/01/19 documented as of this encounter
--- OUTSIDE RECORDS SUMMARY | 2024-10-11 11:28 | XMS_ITS | Clinical Summary ---
Author Organization [facility] Address [address] [place] [phone] Phone Care Team Providers Care Detacker Name Role Phone Erlin Al MD Primary Care Provider [phone] Allergies No known active allergies Medications allopurinol (ZYLOPRIM) 100 mg tablet Take 100 mg by mouth daily. Active aspirin (ECOTRIN EC) 81 mg Tablet, Delayed Release (E.C.) Take 81 mg by mouth daily. Active albuterol (PROVENTIL HFA) 90 mcg/Actuation HFA Aerosol Inhaler HFA inhaler Take 2 Puffs by inhalation every 6 hours as needed for Shortness of Breath. 6.7 Gram 2 3 Active fluticasone-traci meterol (ADVAIR DISKUS) 250-50 mcg/dose Disk with Device Take 1 Puff by inhalation 2 times daily. 1 Inhaler 2 3 Active predniSONE (DELTASONE) 20 mg tablet Take 2 tabs daily for 2 more days; take 1 tab daily for 4 days; take 1/2 tab daily for 5 days and stop 12 Tab 0 3 Active amoxicillin-cla vulanate (AUGMENTIN) 875-125 mg tablet Take 1 Tab by mouth every 12 hours. 16 Tab 0 3 Active Active Problems Problem Noted Date Diagnosed Date COPD exacerbation 08/29/2013 PNA (pneumonia) 08/29/2013 Hyponatremia 08/29/2013 Gout 08/29/2013 Sepsis 08/29/2013 Tobacco abuse 08/29/2013 Family History Medical History Relation Name Comments Heart Disease Father Healthy Mother Relation Name Status Comments Father Mother Social History Tobacco Use Types Packs/Day Years Used Date Smoking Tobacco: Every Day Cigarettes 2 63.1 Started: 08/29/1960 Comments:sometimes smokes1.5 PPD, average most of his life 2 PPD Alcohol Use Standard Drinks/Week Comments Yes 0 (1 standard drink = 0.6 oz pur e alcohol) occ Sex and Gender Information Value Date Recorded Sex Assigned at Not on file Legal Sex Male 3:47 AM LAB ANIMAL TECHNOLOGIST Gender Identity Not on file Sexual Orientation Not on file Occupation Industry Job Start Date Job End Date Not on file Not on file Not on file Not on file Last Filed Vital Signs Vital Sign Reading Time Taken Comments Blood Pressure 164/90 09/02/2013 12:50 PM LAB ANIMAL TECHNOLOGIST Pulse 93 09/02/2013 2:34 PM LAB ANIMAL TECHNOLOGIST Temperature 36.9 C (98.4 F) 09/02/2013 12:50 PM LAB ANIMAL TECHNOLOGIST Respiratory Rate 16 09/02/2013 2:34 PM LAB ANIMAL TECHNOLOGIST Oxygen Saturation 95% 09/02/2013 2:34 PM LAB ANIMAL TECHNOLOGIST Inhaled Oxygen Concentration - - Weight 128.5 kg (283 lb 6.4 oz) 09/02/2013 3:50 AM LAB ANIMAL TECHNOLOGIST Height 182.9 cm (6') 08/29/2013 5:31 PM LAB ANIMAL TECHNOLOGIST Body Mass Index 38.44 08/29/2013 5:31 PM LAB ANIMAL TECHNOLOGIST Plan of Treatment Health Maintenance Due Date Last Done Comments DTAP/TDAP/TD VACCINES (1 - Tdap) 1965 PNEUMOCOCCAL VACCINE 65+ YEARS (1 of 2 - PCV) 12/11/18 66 ZOSTER VACCINE (1 of 2) 1996 RSV VACCINE (60+ or ) (1 - 1-dose 75+ series) 2021 INFLUENZA VACCINE (#1) 2024 Insurance MEDICARE RAILROAD [facility] [id number] [facility] [employer] [id number] Advance Directives For more information, please contact: [phone] * Full Code (Latest Code Status on File) Date Activated Date Inactivated Comments 08/29/2013 5:40 PM 09/02/2013 6:15 PM * Full Code Date Activated Date Inactivated Comments 08/29/2013 5:39 PM 08/29/2013 5:40 PM Care Teams Detacker Relationship Specialty Start Date End Date Erlin Al MD [address] [place] [phone] PCP - General Surgery 08/29/13
--- OUTSIDE RECORDS SUMMARY | 2024-10-11 11:28 | XMS_ITS | Referral Summary ---
Author Organization [facility] Address [address] [place] [address] Care Team Providers Care Supervisor Order Takers Name Role Phone Unavailable Primary Care Provider Unavailabl e Source Comments [facility],non-owned Affiliates and Associated Physician Practices is amultiple site organization consisting of ambulatory clinics and hospital sitesin [place], [place], [place] and [place]. This disclosure is being madepursuant to the Care Everywhere program and may not contain all information available regarding this patient. Last updated 18.[facility] [employer] Allergies No known active allergies Medications * Be aware that medications may not be up to date on this document. Alwaysverify current medications with the patient. Medication Sig Dispensed Refills Start Date End Date Status allopurinol (Zyloprim) 100 MG tablet Take 1 (one) tablet by mouth once daily Active azelastine (Astelin) 0.1 % nasal spray [place] 1 (one) spray into each nostril 2 times daily Active budesonide-formoterol (Symbicort) 160-4.5 MCG/ACT inhaler Inhale 2 (two) puffs by mouth 2 times daily Active finasteride (Proscar) 5 MG tablet Take 1 (one) tablet by mouth once daily Active furosemide (Lasix) 20 MG tablet Take 1 (one) tablet by mouth once daily Active metoprolol succinate XL 24hr (Toprol XL) 25 MG tablet Take 0.5 (one-half) tablet by mouth once daily Active aspirin (Aspirin) 81 MG chew tablet Take 1 (one) tablet by mouth once daily 09/14/2023 Active empagliflozin (Jardiance) 10 MG tablet Take 1 (one) tablet by mouth once daily 09/14/2023 Active atorvastatin (Lipitor) 40 MG tablet Take 1 (one) tablet by mouth at bedtime 09/13/2023 Active sacubitril-valsartan (Entresto) 24-26 MG tablet Take 1 (one) tablet by mouth 2 times daily 09/13/2023 Active spironolactone (Aldactone) 25 MG tablet Take 0.5 (one-half) tablet by mouth once daily 09/14/2023 Active Active Problems Problem Noted Date Diagnosed [...] and heating? Not hard at all 09/05/2023 [facility] [place] of Occupat ional Health - Occupational Stress [...] place to sleep or slept in a snf (including now)? Patient unable to answer 09/05/2023 Sex and Gender Information Value Date Recorded Sex Assigned at Not on file Gender Identity Not on file Sexual Orientation Not on file Last Filed Vital Signs Vital Sign Reading Time Taken Comments Blood Pressure 93/57 09/13/2023 4:02 PM AUTOMOTIVE ENGINEERING TEACHER Pulse 95 09/13/2023 4:02 PM AUTOMOTIVE ENGINEERING TEACHER Temperature 36.2 C (97.2 F) 09/13/2023 4:02 PM AUTOMOTIVE ENGINEERING TEACHER Respiratory Rate 18 09/13/2023 4:02 PM AUTOMOTIVE ENGINEERING TEACHER Oxygen Saturation 95% 09/13/2023 4:02 PM AUTOMOTIVE ENGINEERING TEACHER Inhaled Oxygen Concentration 40% 09/06/2023 1 0:02 AM AUTOMOTIVE ENGINEERING TEACHER Weight 116 kg (255 lb 11.2 oz) 09/12/2023 4:00 A M AUTOMOTIVE ENGINEERING TEACHER Height 182.9 cm (6') 09/07/2023 8:00 PM AUTOMOTIVE ENGINEERING TEACHER Body Mass Index 34.68 09/07/2023 8:00 PM AUTOMOTIVE ENGINEERING TEACHER Functional Status Functional Status Response Date of Assess ment Is person deaf or have serious hearing difficult y? No 09/05/2023 Is person blind or have serious difficulty seein g? No 09/05/2023 Does person have serious dif ficulty walking/climbing stairs? No 09/05/2023 Does person have difficulty dressing/bathing? No 09/05/2023 Does person have difficulty doing errands alone? No 09/05/2023 Cognitive Status Response Date of Assessm ent Does person have difficulty concentrating/remembering/making decisions? No 09/05/2023 Plan of Treatment Not on file Advance Directives * Full Code (Latest Code Status on File) Date Activated Date Inactivated Comments 09/03/2023 4:58 PM 09/13/2023 7:09 PM * Full Code Date Activated Date Inactivated Comments 09/03/2023 10:40 AM 09/03/2023 4:47 PM * Full Code Date Activated Date Inactivated Comments 09/03/2023 2:57 AM 09/03/2023 10:40 AM
--- OUTSIDE RECORDS SUMMARY | 2024-10-11 11:28 | XMS_ITS | Clinical Summary ---
Author Organization [facility] Address [address] [place] [address] Care Team Providers Care Banquet Prep Cook Name Role Phone Colton Emanuel MD Primary Care Provider [phone] Noé Lam MD Unavailable Unavailabl e Allergies No known active allergies Medications PROAIR HFA 108 (90 Base) MCG/ACT inhaler Inhale 2 puffs into the lungs every 4 (four) hours as needed. 2 06/28/2018 Active allopurinol 100 MG tablet Take 100 mg by mouth daily. 0 01/15/2019 Active finasteride 5 MG tablet TAKE 1 TABLET BY MOUTH ONCE A DAY TO SHRINK PROSTATE 4 01/12/2019 Active furosemide 20 MG tablet Take 20 mg by mouth daily. 1 12/21/2018 Active rosuvastatin 20 MG tablet Take 20 mg by mouth nightly at bedtime. Active aspirin EC (ASPIRIN EC) 81 MG tablet Take 81 mg by mouth daily. Active acetaminophen 500 MG tablet Take 500 mg by mouth every 6 (six) hours as needed for Pain. Active OXYGEN Active SYMBICORT 160-4.5 MCG/ACT inhaler TAKE 1 PUFF BY MOUTH TWICE A DAY 2 06/28/2018 Active azelastine 0.1 % nasal spray 1 spray by Nasal route 2 (two) times a day. 04/15/2020 Active fluticasone propionate 50 MCG/ACT nasal spray 1 spray by Nasal route daily. 04/08/2020 Active losartan 25 MG tablet Take 1 tablet (25 mg total) by mouth daily. 30 tablet 6 05/22/2021 Active METOPROLOL SUCCINATE ER 25 MG 24 hr tablet TAKE 1 TABLET BY MOUTH EVERY DAY 90 tablet 06/24/2021 Active SPIRONOLACTONE 25 MG tablet TAKE 1 TABLET BY MOUTH EVERY DAY IN THE MORNING 90 tablet 06/24/2021 Active Active Problems Problem Noted Date Diagnosed Date Nonischemic cardiomyopathy ([facility]) Current smoker 05/29/2020 S/P AAA (abdominal aortic aneurysm) repair 10/23 Dilated cardiomyopathy ([facility]) 020 AAA (abdominal aortic aneurysm) COPD (chronic obstructive pu lmonary disease) ([facility]) Benign essential HTN Mixed hyperlipidemia CAD (coronary artery disease) Gout Obesity S/P primary angioplasty with coronary stent Social History Tobacco Use Types Packs/Day Years Used Date Smoking Tobacco: Every Day Smokeless Tobacco: Never Alcohol Use Standard Drinks/Week Comments Yes 0 (1 standard drink = 0.6 oz pur e alcohol) rarely AUDIT-C Answer Date Recorded Frequency of Alcohol [...] Sign Reading Time Taken Comments Blood Pressure 92/64 05/29/2020 2:09 PM CDT Pulse 77 05/29/2020 2:09 PM CDT Temperature - - Respiratory Rate 18 05/29/2020 2:09 PM CDT Oxygen Saturation 95% 05/29/2020 2:09 PM CDT Inhaled Oxygen Concentration - - Weight 117 kg (258 lb) 05/29/2020 2:09 PM CDT Height 182.9 cm (6') 05/29/2020 2:09 PM CDT Body Mass Index 34.99 05/29/2020 2:09 PM CDT Plan of Treatment Health Maintenance Due Date Last Done Comments ASCVD LDL 1945 ASCVD Statin 1945 Pneumococcal Vaccine: 65+ Ye ars (1 of 2 - PCV) 1952 Hepatitis C 1964 DTaP, Tdap and Td Vaccines ( 1 - Tdap) 1965 Zoster Vaccines (1 of 2) 1996 Annual Medicare Wellness Visit 12/12/2011 RSV Immunization or 60+ Years (1 - 1-dose 75+ series) 2021 COVID-19 Vaccine (2023-2 5 season) 2024 Influenza Adult (#1) 2024 Meningococcal B Vaccine Aged Out No l onger eligible based on patient's age to complete this topic Meningococcal Vaccine Aged Out No ariella teresa eligible based on patient's age to complete this topic RSV Immunizations Under 20 Months Aged Out No longer eligible based on patient's age to complete this topic Insurance RAILROAD MEDICARE RAILROAD MEDICARE Care Teams Banquet Prep Cook Relationship Specialty Start Date End Date Colton Emanuel MD [address] [place] [address] PCP - General FAMILY PRACTICE 01/01/19 Noé Lam MD [facility] [address] Real Estate Appraiser Supervisor CARDIOVASCULAR DISEASE 01/01/19
--- OUTSIDE RECORDS SUMMARY | 2024-10-11 11:28 | XMS_ITS | Clinical Summary ---
Author Organization [facility] Address [address] [place] [address] Care Team Providers Care Rd Manager Name Role Phone Unavailable Primary Care Provider Unavailabl e Source Comments [facility],non-owned Affiliates and Associated Physician Practices is amultiple site organization consisting of ambulatory clinics and hospital sitesin [place], [place] and [place]. This disclosure is being madepursuant to the Care Everywhere program and may not contain all information available regarding this patient. Last updated 18.[facility] Allergies No known active allergies Medications * Be aware that medications may not be up to date on this document. Alwaysverify current medications with the patient. Medication Sig Dispensed Refills Start Date End Date Status allopurinol (Zyloprim) 100 MG tablet Take 1 (one) tablet by mouth once daily Active azelastine (Astelin) 0.1 % nasal spray [place] 1 (one) spray into each nostril 2 [...] and heating? Not hard at all 09/05/2023 [facility] [place] of Occupat ional Health - Occupational Stress [...] place to sleep or slept in a long term (including now)? Patient unable to answer 09/05/2023 Sex and Gender Information Value Date Recorded Sex Assigned at Not on file Gender Identity Not on file Sexual Orientation Not on file Last Filed Vital Signs Vital Sign Reading Time Taken Comments Blood Pressure 93/57 09/13/2023 4:02 PM GREEN MEAT PACKER Pulse 95 09/13/2023 4:02 PM GREEN MEAT PACKER Temperature 36.2 C (97.2 F) 09/13/2023 4:02 PM GREEN MEAT PACKER Respiratory Rate 18 09/13/2023 4:02 PM GREEN MEAT PACKER Oxygen Saturation 95% 09/13/2023 4:02 PM GREEN MEAT PACKER Inhaled Oxygen Concentration 40% 09/06/2023 1 0:02 AM GREEN MEAT PACKER Weight 116 kg (255 lb 11.2 oz) 09/12/2023 4:00 A M GREEN MEAT PACKER Height 182.9 cm (6') 09/07/2023 8:00 PM GREEN MEAT PACKER Body Mass Index 34.68 09/07/2023 8:00 PM GREEN MEAT PACKER Plan of Treatment Health Maintenance Due Date Last Done Comments MEDICARE AWV 12 MONTHS 1945 HEPATITIS C SCREENING 12/06/1964 DTAP/TDAP/TD VACCINES (1 - Tdap) 1965 PNEUMOCOCCAL VACCINE 50+ (1 of 2 - PCV) 1965 ZOSTER VACCINE (1 of 2) 1996 Respiratory Syncytial Virus (RSV) Vaccine Pt: or over 60 yrs (1 - 1-dose 75+ series) 2021 COVID-19 VACCINE (2023-2 5 season) 2024 INFLUENZA VACCINE (#1) 2024 DEPRESSION SCREENING 09/05/2024 HEPATITIS B VACCINE Aged Out No longe r eligible based on patient's age to complete this topic HIB VACCINE Aged Out No longer eligi ble based on patient's age to complete this topic HPV VACCINE Aged Out No longer eligi ble based on patient's age to complete this topic MENINGOCOCCAL (Group B) VACCINE Aged Out No longer eligible based on patient's age to complete this topic MENINGOCOCCAL VACCINE Aged Out No ariella teresa eligible based on patient's age to complete this topic Advance Directives * Full Code (Latest Code Status on File) Date Activated Date Inactivated Comments 09/03/2023 4:58 PM 09/13/2023 7:09 PM * Full Code Date Activated Date Inactivated Comments 09/03/2023 10:40 AM 09/03/2023 4:47 PM * Full Code Date Activated Date Inactivated Comments 09/03/2023 2:57 AM 09/03/2023 10:40 AM
[2024-10-11 11:54] LABS: Alanine Aminotransferase 14 U/L (16-63); Albumin Level 3.7 g/dL (3.4-5.0); Alkaline Phosphatase 148 U/L (46-116); Anion Gap 8 mmol/L (4-12); Aspartate Amino Transferase 12 U/L (15-37); Bilirubin,Total 0.3 mg/dL (0.00-1.00); Blood Urea Nitrogen 21 mg/dL (7-18); Calcium 9.5 mg/dL (8.5-10.1); Carbon Dioxide 32 mmol/L (21-32); Chloride 100 mmol/L (98-108); Estimated Glomerular Filt Rate 43; Glucose 115 mg/dL (70-99); Iron 51 ug/dL (65-175); NT Pro B Type Natriuretic Pept 87 pg/mL (0-450); Osmolality Calculated 294 mOsm/kg (285-295); Percent Iron Saturation 14 % (12-57); Sodium 140 mmol/L (136-145)
== END 2024-10-11 10:59 | disposition home or self-care (01) ==
LOC: CHSLAB 10:59
PROVIDERS: PCP Nurse Practitioner Family; Visit Provider Nurse Practitioner Family
DX: I50.9 Heart failure, unspecified (principal); R06.02 Shortness of breath
CPT/HCPCS: 36415; 71046; 80053; 83540; 83550; 83880; 85025

== ENCOUNTER 2025-01-09 15:04 | Outpatient (NON) | payer MEDICARE, OTHER, SELFPAY ==
--- OUTSIDE RECORDS SUMMARY | 2025-01-09 15:09 | XMS_ITS | Clinical Summary ---
Author Organization [facility] Address [address] [place] [address] Care Team Providers Care Assembler Name Role Phone Unavailable Primary Care Provider Unavailabl e Source Comments [facility],non-owned Affiliates and Associated Physician Practices is amultiple site organization consisting of ambulatory clinics and hospital sitesin [place], [place], [place] and [place]. This disclosure is being madepursuant to the Care Everywhere program and may not contain all information available regarding this patient. Last updated 18.[facility] [place] Allergies No known active allergies Medications * Be aware that medications may not be up to date on this document. Alwaysverify current medications with the patient. allopurinol (Zyloprim) 100 MG tablet Take 1 (one) tablet by mouth once daily Active azelastine (Astelin) 0.1 % nasal spray [place] 1 (one) spray into each nostril 2 times daily Active budesonide-form oterol (Symbicort) 160-4.5 MCG/ACT inhaler Inhale 2 (two) [...] tablet by mouth at bedtime 09/13/2023 Active sacubitril-vals juliet (Entresto) 24-26 MG tablet Take 1 (one) [...] and heating? Not hard at all 09/05/2023 [facility] [place] of Occupat ional Health - Occupational Stress [...] place to sleep or slept in a nursing home (including now)? Patient unable to answer 09/05/2023 Sex and Gender Information Value Date Recorded Sex Assigned at Not on file Legal Sex Male 10:39 PM TEXTILE DESIGNS SALES REPRESENTATIVE Gender Identity Not on file Sexual Orientation Not on file Last Filed Vital Signs Vital Sign Reading Time Taken Comments Blood Pressure 93/57 09/13/2023 4:02 PM TEXTILE DESIGNS SALES REPRESENTATIVE Pulse 95 09/13/2023 4:02 PM TEXTILE DESIGNS SALES REPRESENTATIVE Temperature 36.2 C (97.2 F) 09/13/2023 4:02 PM TEXTILE DESIGNS SALES REPRESENTATIVE Respiratory Rate 18 09/13/2023 4:02 PM TEXTILE DESIGNS SALES REPRESENTATIVE Oxygen Saturation 95% 09/13/2023 4:02 PM TEXTILE DESIGNS SALES REPRESENTATIVE Inhaled Oxygen Concentration 40% 09/06/2023 1 0:02 AM TEXTILE DESIGNS SALES REPRESENTATIVE Weight 116 kg (255 lb 11.2 oz) 09/12/2023 4:00 A M TEXTILE DESIGNS SALES REPRESENTATIVE Height 182.9 cm (6') 09/07/2023 8:00 PM TEXTILE DESIGNS SALES REPRESENTATIVE Body Mass Index 34.68 09/07/2023 8:00 PM TEXTILE DESIGNS SALES REPRESENTATIVE Plan of Treatment Health Maintenance Due Date Last Done Comments MEDICARE AWV 12 MONTHS 1945 HEPATITIS C SCREENING 12/06/1964 DTAP/TDAP/TD VACCINES (1 - Tdap) 1965 PNEUMOCOCCAL VACCINE 50+ (1 of 2 - PCV) 1965 ZOSTER VACCINE (1 of 2) 1996 Respiratory Syncytial Virus (RSV) Vaccine Pt: or over 60 yrs (1 - 1-dose 75+ series) 2021 COVID-19 VACCINE ( - 2023-2 5 season) 2024 DEPRESSION SCREENING 09/05/2024 INFLUENZA VACCINE (Season Ended) 2025 HEPATITIS B VACCINE Aged Out No longe r eligible based on patient's age to complete this topic HIB VACCINE Aged Out No longer eligi ble based on patient's age to complete this topic HPV VACCINE Aged Out No longer eligi ble based on patient's age to complete this topic MENINGOCOCCAL (Group B) VACC INE SHARED DECISION-MAKING Aged Out No longer eligibl e based on patient's age to complete this topic MENINGOCOCCAL GROUPS A/C/Y/W VACCINE Aged Out No longer eligible b ased on patient's age to complete this topic Insurance MEDICARE Advance Directives * Full Code (Latest Code Status on File) Date Activated Date Inactivated Comments 09/03/2023 4:58 PM 09/13/2023 7:09 PM * Full Code Date Activated Date Inactivated Comments 09/03/2023 10:40 AM 09/03/2023 4:47 PM * Full Code Date Activated Date Inactivated Comments 09/03/2023 2:57 AM 09/03/2023 10:40 AM
--- OUTSIDE RECORDS SUMMARY | 2025-01-09 15:09 | XMS_ITS | Clinical Summary ---
Author Organization [facility] Address [address] [place] [address] Care Team Providers Care Career Resource Specialist Name Role Phone Colton Emanuel MD Primary Care Provider [phone] Noé Lam MD Unavailable [phone] Allergies No known active allergies Medications PROAIR [...] Problem Noted Date Diagnosed Date Nonischemic cardiomyopathy ([facility]) Current smoker 05/29/2020 S/P AAA (abdominal aortic aneurysm) repair 10/23 Dilated cardiomyopathy ([facility]) 020 AAA (abdominal aortic aneurysm) COPD (chronic obstructive pu lmonary disease) ([facility]) Benign essential HTN Mixed hyperlipidemia [...] Comments ASCVD LDL 1945 ASCVD Statin 1945 Hepatitis C 1964 DTaP, Tdap and Td Vaccines ( 1 - Tdap) 1965 Pneumococcal Vaccine: 50+ Ye ars (1 of 2 - PCV) 1965 Zoster Vaccines (1 of 2) 1996 Annual Medicare Wellness Visit 12/12/2011 RSV Immunization or 60+ Years (1 - 1-dose 75+ series) 2021 COVID-19 Vaccine (2023-2 5 season) 2024 Meningococcal B Vaccine Aged Out No l onger eligible based on patient's age to complete this topic Meningococcal Vaccine Aged Out No ariella teresa eligible based on patient's age to complete this topic RSV Immunizations Under 20 Months Aged Out No longer eligible based on patient's age to complete this topic Insurance RAILROAD MEDICARE RAILROAD MEDICARE Care Teams Career Resource Specialist Relationship Specialty Start Date End Date Colton Emanuel MD [address] [place] [address] PCP - General FAMILY PRACTICE 01/01/19 Noé Lam MD [address] [place] [address] [place] Contract Accountant CARDIOVASCULAR DISEASE 01/01/19
--- OUTSIDE RECORDS SUMMARY | 2025-01-09 15:09 | XMS_ITS | Clinical Summary ---
Author Organization [facility] Address [address] [place] [phone] Phone Care Team Providers Care Instructional Materials Director Name Role Phone Erlin Al MD Primary Care Provider [phone] Allergies No known active allergies Medications allopurinol [...] Date Smoking Tobacco: Every Day Cigarettes 2 63.4 Started: 08/29/1960 Comments:sometimes smokes1.5 PPD, average most of his life 2 PPD Alcohol Use Standard Drinks/Week Comments Yes 0 (1 standard drink = 0.6 oz pur e alcohol) occ Sex and Gender Information Value Date Recorded Sex Assigned at Not on file Legal Sex Male 3:47 AM FAMILY CONSULTANT Gender Identity Not on file Sexual Orientation Not on file Occupation Industry Job Start Date Job End Date Not on file Not on file Not on file Not on file Last Filed Vital Signs Vital Sign Reading Time Taken Comments Blood Pressure 164/90 09/02/2013 12:50 PM FAMILY CONSULTANT Pulse 93 09/02/2013 2:34 PM FAMILY CONSULTANT Temperature 36.9 C (98.4 F) 09/02/2013 12:50 PM FAMILY CONSULTANT Respiratory Rate 16 09/02/2013 2:34 PM FAMILY CONSULTANT Oxygen Saturation 95% 09/02/2013 2:34 PM FAMILY CONSULTANT Inhaled Oxygen Concentration - - Weight 128.5 kg (283 lb 6.4 oz) 09/02/2013 3:50 AM FAMILY CONSULTANT Height 182.9 cm (6') 08/29/2013 5:31 PM FAMILY CONSULTANT Body Mass Index 38.44 08/29/2013 5:31 PM FAMILY CONSULTANT Plan of Treatment Health Maintenance Due Date Last Done Comments DTAP/TDAP/TD VACCINES (1 - Tdap) 1965 PNEUMOCOCCAL VACCINE 50+ YEARS (1 of 2 - PCV) 12/11/18 66 ZOSTER VACCINE (1 of 2) 1996 RSV VACCINE (60+ or ) (1 - 1-dose 75+ series) 2021 INFLUENZA VACCINE (#1) 2024 Insurance MEDICARE RAILROAD [facility] [id number] [facility] SUPP AARP [id number] Advance Directives For more information, please contact: [phone] * Full Code (Latest Code Status on File) Date Activated Date Inactivated Comments 08/29/2013 5:40 PM 09/02/2013 6:15 PM * Full Code Date Activated Date Inactivated Comments 08/29/2013 5:39 PM 08/29/2013 5:40 PM Care Teams Instructional Materials Director Relationship Specialty Start Date End Date Erlin Al MD [address] [place] [phone] PCP - General Surgery 08/29/13
--- OUTSIDE RECORDS SUMMARY | 2025-01-09 15:09 | XMS_ITS | Encounter Summary ---
Author Organization [facility] Address [address] [place] [address] Care Team Providers Care Dieing Out Machine Operator Name Role Phone Colton Emanuel MD Primary Care Provider [phone] Noé Lam MD Unavailable [phone] Encounter Details Date Type Department Care Team (Late st Contact Info) Description 02/23/2019 Abstract [facility] [address] [place] [address] Noé Lam MD [address] [place] [address] Social History Tobacco Use Types Packs/Day Years [...] hyperlipidemia Gout COPD (chronic obstructive pulmonary disease) Benign essential HTN Abdominal aortic aneurysm (AAA) without rupture COMPREHENSIVE METABOLIC PANEL Routine 02/23/2019 S/P primary angioplasty with coronary stent Obesity Mixed hyperlipidemia Gout COPD (chronic obstructive pulmonary disease) Benign essential HTN Abdominal aortic aneurysm (AAA) without rupture THYROID STIM HORMONE TSH Routine 02/23/2019 S/P primary angioplasty with coronary stent Obesity Mixed hyperlipidemia Gout COPD (chronic obstructive pulmonary disease) Benign essential HTN Abdominal aortic aneurysm (AAA) without rupture MAGNESIUM Routine 02/23/2019 S/P primary angioplasty with coronary stent Obesity Mixed hyperlipidemia Gout COPD (chronic obstructive pulmonary disease) Benign essential HTN Abdominal aortic aneurysm (AAA) without rupture documented in this encounter Results * MAGNESIUM (02/23/2019) MAGNESIUM 2.1 02/23/2019 Noé Lam MD LABORATORY Final Resul t * BNP (02/23/2019) B TYPE NATRIURETIC PEPTIDE 7 02/23/2019 Noé Lam MD LABORATORY Final Resul t * TSH (02/23/2019) TSH 1.6 02/23/2019 Noé Lam MD LABORATORY Final Resul t * COMPREHENSIVE METABOLIC PANEL (02/23/2019) SODIUM S/P/B 138 POTASSIUM S/P/B 5.1 CO2 [...] Gout, unspecified COPD (chronic obstructive pulmonary disease) ([facility]) Chronic airway obstruction, not elsewhere classified Benign essential HTN Essential hypertension, benign Abdominal aortic aneurysm (AAA) without rupture documented in this encounter Care Teams Dieing Out Machine Operator Relationship Specialty Start Date End Date Colton Emanuel MD [address] [place] [address] PCP - General FAMILY PRACTICE 01/01/19 Noé Lam MD [address] [place] [address] [place] Alumnae Secretary CARDIOVASCULAR DISEASE 01/01/19 documented as of this encounter
== END 2025-01-09 15:05 | disposition home or self-care (01) ==
LOC: ANHGOSHLAB 15:05
PROVIDERS: PCP Nurse Practitioner Family; Visit Provider Otolaryngology
DX: J34.89 Other specified disorders of nose and nasal sinuses (principal)
CPT/HCPCS: 87070; 87075; 87205

== ENCOUNTER 2025-01-30 14:33 | Outpatient (CLI) | payer MEDICARE, OTHER, SELFPAY ==
--- NOTE | ~2025-01-30 | CT_ITS ---
CT Scan of the Chest without Contrast: Clinical Indication: Lung cancer screening, nicotine dependence Technique: Contiguous sections were acquired throughout the chest without intravenous contrast. Dose reduction technique was used on this scan by utilizing automated exposure control and iterative recon struction technique. The dose-length product (DLP) was 239.67 mGy-cm. COMPARISON: 06/13/2024 Findings: There is no evidence of any significant mediastinal, hilar or axillary lymphadenopathy. Coronary patti ry calcifications are present. There is no evidence of pleural or pericardial effusion. The lungs are clear. No pulmonary nodules or infiltrates are noted. Images through the upper abdomen reveal no abnormalities. Impression: Lung RADS 1: Negative. 12 month follow-up screening CT advised. Reviewed, dictated and finalized at location . Impression: Lung RADS 1: Negative. 12 month follow-up screening CT advised.
--- OUTSIDE RECORDS SUMMARY | 2025-01-30 14:41 | XMS_ITS | Clinical Summary ---
Author Organization [facility] Address [address] [place] [phone] Phone Care Team Providers Care Warehouse Worker 2Nd Shift Name Role Phone Erlin Al MD Primary Care Provider [phone] Allergies No known active allergies Medications allopurinol [...] on file Legal Sex Male 3:47 AM AWARD MACHINE OPERATOR Gender Identity Not on file Sexual Orientation Not on file Occupation Industry Job Start Date Job End Date Not on file Not on file Not on file Not on file Last Filed Vital Signs Vital Sign Reading Time Taken Comments Blood Pressure 164/90 09/02/2013 12:50 PM AWARD MACHINE OPERATOR Pulse 93 09/02/2013 2:34 PM AWARD MACHINE OPERATOR Temperature 36.9 C (98.4 F) 09/02/2013 12:50 PM AWARD MACHINE OPERATOR Respiratory Rate 16 09/02/2013 2:34 PM AWARD MACHINE OPERATOR Oxygen Saturation 95% 09/02/2013 2:34 PM AWARD MACHINE OPERATOR Inhaled Oxygen Concentration - - Weight 128.5 kg (283 lb 6.4 oz) 09/02/2013 3:50 AM AWARD MACHINE OPERATOR Height 182.9 cm (6') 08/29/2013 5:31 PM AWARD MACHINE OPERATOR Body Mass Index 38.44 08/29/2013 5:31 PM AWARD MACHINE OPERATOR Plan of Treatment Health Maintenance Due Date Last Done Comments DTAP/TDAP/TD VACCINES (1 - Tdap) 1965 PNEUMOCOCCAL VACCINE 50+ YEARS (1 of 2 - PCV) 12/11/18 66 ZOSTER VACCINE (1 of 2) 1996 RSV VACCINE (60+ or ) (1 - 1-dose 75+ series) 2021 INFLUENZA VACCINE (#1) 2024 Insurance MEDICARE RAILROAD [facility] [id number] [facility] SUPP AARP [id number] Advance Directives For more information, please contact: [phone] * Full Code (Latest Code Status on File) Date Activated Date Inactivated Comments 08/29/2013 5:40 PM 09/02/2013 6:15 PM * Full Code Date Activated Date Inactivated Comments 08/29/2013 5:39 PM 08/29/2013 5:40 PM Care Teams Warehouse Worker 2Nd Shift Relationship Specialty Start Date End Date Erlin Al MD [address] [place] [phone] PCP - General Surgery 08/29/13
--- OUTSIDE RECORDS SUMMARY | 2025-01-30 14:41 | XMS_ITS | Data Portability ---
Author Organization [facility], [address] [facility] ([place]) Address [address] [place] [address] Care Team Providers Care Water Resource Project Manager Name Role Phone MATIHAZEL DARIUSZ Primary Care Provider [phone] Assessment Encounter Date Assessment Date Assessment LastModified by Organization Details LastModified Time 03/19/2024 03/19/2024 Mr. Kristian Ferreira is here for assessment regarding bilateral carotid asymptomatic stenosis and abdominal aortic aneurysm. Duplex exam shows 4.0 cm aneurysm sac without any evidence of endo leak. Evidence of excellent position of stent graft without any kinking or migration or endo leak. Duplex exam shows mild stenosis bilaterally with 16 to 49% stenosis. He has no active complaints. PLAN: Discussed the importance of smoking cessation. Continue aspirin 81 mg daily. I will see him next year with repeat aortic duplex exam. bonifacio Not available 03/19/2024 11:30:39 Plan of Treatment Reminders Order Date Submit Date Provider Last Modified By Organization Details Last Modified Time Details Appointments Imaging 5.PRO 2024 08:00A M Radiology Not available Not available Not available Establis hed Patient 15.EST 2024 09:00A M Dr. Last Wright Not available Not available Not available Lab None recorded . Referral None recorded . Procedures None recorded . Surgeries None recorded . Imaging None recorded . Medication Orders None recorded . Patient TargetsNo targets recorded. Patient InstructionsNo instructions recorded. Reason for Referral None Reported. Results Created Date Observation Date Name Description Value Unit Range Abnormal Flag Note LastModifiedBy Organization Detail LastModifiedTime 03/19/20 24 03/19/2024 US, duple x, aorta + iliac vesse ls, compl ete [facility] [address] [address] Teleph one [phone] Name: Kristian Ledezma [id number] Exam Date: 2023 Age: 78 Physic gamaliel: MD Kyle, Last : 1945 Examin ation: US AORTA, ILIAC, COMPLE TE INDICA TION: 78 years old male who is here for assess ment regard ing abdomi nal aortic aneury sm. He underw ent EVAR in 2018. Findin gs: veloci ty of the aorta proxim ally is 72 cm/sec , midpor tion is 83 cm/sec , endogr aft veloci ty is 88 cm/sec . Right limb veloci ty is 86 cm/sec proxim ally and 81 cm/sec distal ly. Right limb veloci ty is 93 cm/sec proxim ally and 84 cm/sec distal ly. The graft is patent . The aorta and iliac arteri es are well imaged . Proxim al aortic diamet er is 2.8 x 2.8 cm. Mid aortic diamet er is 2.4 x 2.4 cm. Infrar enal aorta has a maximu m diamet er of 3.98 x 3.7 cm. IMPRES CAN: Aortoi liac duplex demons trates a patent aortic endogr aft in place with no eviden ce for stenos is . Aortic residu al sac size has a maximu m diamet er 4.0 cm. There is no endova scular leak noted. Previo us ultras ound exam from February 2023 showed aortic diamet er 4.5 cm. Electr onical ly signed in Marsh cribe by: LAST WRIGHT MD on:03/05 10:00 AM cc: INTERFACE Sc Only - Sc Radiology [address] [place], [address], 03/19/2024 11:02:53 03/19/20 24 03/19/2024 US, carot id arter y [facility]st [address] [address] Teleph one Name: Kristian Ledezma [id number] Exam Date: 2023 Age: 78 Physic gamaliel: MD Kyle, Last : 1945 Examin ation: US CAROTI D BILATE RAL INDICA TION: 78 years old male was seen for assess ment regard ing caroti d stenos is FINDIN GS: Right: All vessel s are satisf actori ly imaged . There is mild soft plaque noted. Veloci ty of the common caroti d artery is 109 / 27 cm/sec proxim ally, 86 / 25 distal ly and the bulb is 85 / 27 cm/sec . Veloci ties of the internet and e business project manager al caroti d artery is 86 / 22 cm/s proxim ally, 99 / 28 cm/s mid ICA and 62 / 20 cm/s distal ly. Bartender al caroti d artery veloci ty is 100 cm/sec . Verteb ral artery is antegr claudy with normal veloci ty. Left: All vessel s are satisf actori ly imaged . There is mild soft plaque noted. Veloci ty of the common caroti d artery is 123 / 35 cm/sec proxim ally, 70 / 20 cm/s distal ly, and the bulb is 68 / 25 cm/sec . Veloci ties of the internet and e business project manager al caroti d artery is 70 / 29 cm/ proxim ally, 96 / 31 cm/s mid ICA and 94 / 39 cm/s distal ly. Bartender al caroti d artery veloci ty is 89 cm/sec . Verteb ral artery is antegr claudy with normal veloci ty. IMPRES CAN: Right caroti d duplex shows mild athero sclero sis of the caroti d artery . There is stenos is of the internet and e business project manager al caroti d artery in the 16-49 % range. Bartender al caroti d artery is patent with normal veloci ty. Verteb ral artery is antegr claudy. Left caroti d duplex shows mild athero sclero sis of the caroti d artery . There is stenos is of the internet and e business project manager al caroti d artery in the 16-49 % range. Bartender al caroti d artery is patent with normal veloci ty. Verteb ral artery is antegr claudy. Electr onical ly signed in [place] cri by: LAST WRIGHT MD on:03/05 10:01 AM cc: INTERFACE Sc Only - Sc Radiology [address] [place], [address], 03/19/2024 11:04:32 Result Notes None recorded. Problems Name Problem SNOMED Code Status Onset Date Resolution Date Notes Provider Name and Address Organization Details Recorded Time Abdominal aortic aneurysm 207449620 Active 024 Latesha Tang [facility] 4 11:22:26 Carotid artery stenosis [id number] [facility] 024 Akanksha [facility] 4 12:18:54 Edema of lower extremity 511109819 [facility] 024 [facility] 4 12:19:53 Carotid artery stenosis 05751405 [facility] 024 [facility] 4 08:06:02 Smoker 02669783 Active 024 [facility] 4 08:06:24 Problem Notes None recorded. Medical Equipment None Reported. Medications Name Sig Start Date Stop Date Status Note LastModified by Organization Details LastModified Time losartan 50 mg tablet TAKE 1 TABLET BY MOUTH EVERY DAY active Not Available Not Available No t Available amoxicillin 500 mg capsule TAKE 1 CAPSULE BY MOUTH 3 TIMES A DAY UNTIL GONE active Not Available Not Available No t Available atorvastatin 40 mg tablet TAKE 1 TABLET BY MOUTH EVERYDAY AT BEDTIME active Not Available Not Available No t Available allopurinol 100 mg tablet TAKE 1 TABLET BY MOUTH EVERY DAY active Not Available Not Available No t Available spironolactone 25 mg tablet TAKE 1 TABLET BY MOUTH EVERY DAY active Not Available Not Available No t Available pravastatin 10 mg tablet TAKE 1 TABLET BY MOUTH EVERY DAY active Not Available Not Available No t Available furosemide 20 mg tablet TAKE 1 TABLET BY MOUTH EVERY DAY active Not Available Not Available No t Available metoprolol succinate ER 25 mg tablet,extende d release 24 hr TAKE 1/2 TABLET BY MOUTH EVERY DAY active Not Available Not Available No t Available azelastine 137 mcg (0.1 %) nasal spray SPRAY 1 SPRAY INTO EACH NOSTRIL TWICE A DAY active Not Available Not Available No t Available fluticasone propionate 50 mcg/actuation nasal spray,suspensi on 1 SPRAY IN EACH NOSTRIL TWICE A DAY active Not Available Not Available No t Available finasteride 5 mg tablet TAKE 1 TABLET BY MOUTH ONCE A DAY TO SHRINK PROSTATE active Not Available Not Available No t Available Symbicort 160 mcg-4.5 mcg/actuation HFA aerosol inhaler TAKE 2 PUFFS BY MOUTH TWICE A DAY active Not Available Not Available No t Available cholecalcifero l (vitamin D3) 1,250 mcg (50,000 unit) capsule TAKE 1 CAPSULE BY MOUTH WEEKLY active Not Available Not Available No t Available cholecalcifero l (vitamin D3) 50 mcg (2,000 unit) capsule TAKE 1 CAPSULE BY MOUTH EVERY DAY active Not Available Not Available No t Available Jardiance 10 mg tablet TAKE 1 TABLET BY MOUTH EVERY DAY active Not Available Not Available No t Available Entresto 24 mg-26 mg tablet TAKE 1 TABLET BY MOUTH TWICE A DAY active Not Available Not Available No t Available Vitals Date Recorded Body weight Heart rate Respiratory rate Oxygen saturation Oxygen saturation in Arterial blood by Pulse oximetry Systolic blood pressure Diastolic blood pressure Provider Name and Address Organization Details Last Updated DateTime 4 865548. 68 g 85 /min 20 /min 97 % 97 % 140 mm[Hg] 84 mm[Hg] [facility] 4 10:36:09 Social History Question Answer Notes LastModified by Organization D etails LastModified Time How Many Packs Per Day (PPD)? 1 Ppd [email or web address] Information not available 03/19/2024 Sex: Unknown Functional Status None recorded. Mental Status None recorded. Family History Nothing Reported. Medical History No medical history recorded. Past Encounters Encounter ID Performer Location Encounter Start Date Encounter Closed Date Diagnosis/Indication Diagnosis SNOMED-CT Code Diagnosis ICD10 Code Diagnosis Note [id number] Last Wright MD [address] [facility] [address] [place] [phone] 03/19/2024 09:36:33 03/19/2024 11:12:36 Carotid artery stenosis 86315009 I65.23 Abdominal aortic aneurysm 106909065 I71.40 Smoker 18550228 F17.200 Health Concerns Section Related Observation LastModified by Organization Detai ls LastModified Time None Recorded Concern Status LastModified by Organization Details LastModified Time None Recorded Advance Directives Directive None Recorded Payers Insurance Date Sequence Insurance Name Policy Number Policy Keita Covered Member ID Keita Member ID Guarantor Name 04/02/2024 2 [facility] [id number] Kristian Ferreira [id number] Kristian Ferreira 03/20/2024 1 [employer] [employer] - MEDICARE-[address] INTERMEDIATE BOARD (MEDICARE) Rony Ferreira [id number] Kristian Ferreira Notes Date Note Type Note Provider Name and Address Organization Details Recorded Time 03/19/2024 text/html This is a 78-year-old male who is here for assessment regarding asymptomatic carotid stenosis and abdominal aortic aneurysm. The patient underwent EVAR stent graft placement in July 2018 for 5.8 cm abdominal aortic aneurysm. He has done well since then. He had a multiple CT and duplex exam showing continued decrease in the diameter of the aortic aneurysm. CT exam from 2018 showed 4.8 cm AAA. Duplex from 2020 showing 4.6 cm. Duplex from 2022 showed 4.5 cm aneurysm sac. He underwent aortic duplex exam showing 4.0 cm abdominal aortic aneurysm sac without any endo leak. He continues to smoke about half a pack a day. He takes aspirin 81 mg daily. He denies any lower extremity claudication, rest pain or nonhealing ulcer. Denies any TIA or stroke symptoms at this point. He underwent carotid duplex exam, which shows mild stenosis bilaterally. Right ICA velocity 99/28, left ICA velocity 96/31. Both vertebral arteries are patent with antegrade flow.bonifacio Wright MD [address] [place] [address], [phone], [facility] 04/01/2024 23:08:54
--- OUTSIDE RECORDS SUMMARY | 2025-01-30 14:41 | XMS_ITS | Clinical Summary ---
Author Organization [facility] Address [address] [place] [address] Care Team Providers Care Display Designer Name Role Phone Unavailable Primary Care Provider Unavailabl e Source Comments [facility],non-owned Affiliates and Associated Physician Practices is amultiple site organization consisting of ambulatory clinics and hospital sitesin [place], [place], [place] and [place]. This disclosure is being madepursuant to the Care Everywhere program and may not contain all information available regarding this patient. Last updated 18.[facility] [place] Allergies No known active allergies Medications * Be aware that medications may not be up to date on this document. Alwaysverify current medications with the patient. allopurinol (Zyloprim) 100 MG tablet Take 1 (one) tablet by mouth once daily Active azelastine (Astelin) 0.1 % nasal spray [place] 1 (one) spray into each nostril 2 [...] respiratory failure 09/03/2023 Chronic heart failure 09/03/2023 LEIDA (acute kidney injury) 09/03/2023 Community acquired pneumonia [...] and heating? Not hard at all 09/05/2023 [facility] [place] [facility] Occupat ional Health - Occupational Stress [...] place to sleep or slept in a residential (including now)? Patient unable to answer 09/05/2023 Sex and Gender Information Value Date Recorded Sex Assigned at Not on file Legal Sex Male 10:39 PM AUTOMOTIVE WINDOW TINTER Gender Identity Not on file Sexual Orientation Not on file Last Filed Vital Signs Vital Sign Reading Time Taken Comments Blood Pressure 93/57 09/13/2023 4:02 PM AUTOMOTIVE WINDOW TINTER Pulse 95 09/13/2023 4:02 PM AUTOMOTIVE WINDOW TINTER Temperature 36.2 C (97.2 F) 09/13/2023 4:02 PM AUTOMOTIVE WINDOW TINTER Respiratory Rate 18 09/13/2023 4:02 PM AUTOMOTIVE WINDOW TINTER Oxygen Saturation 95% 09/13/2023 4:02 PM AUTOMOTIVE WINDOW TINTER Inhaled Oxygen Concentration 40% 09/06/2023 1 0:02 AM AUTOMOTIVE WINDOW TINTER Weight 116 kg (255 lb 11.2 oz) 09/12/2023 4:00 A M AUTOMOTIVE WINDOW TINTER Height 182.9 cm (6') 09/07/2023 8:00 PM AUTOMOTIVE WINDOW TINTER Body Mass Index 34.68 09/07/2023 8:00 PM AUTOMOTIVE WINDOW TINTER Plan of Treatment Health Maintenance Due Date [...]
== END 2025-01-30 14:34 | disposition home or self-care (01) ==
PROVIDERS: PCP Nurse Practitioner Family; Visit Provider Nurse Practitioner Family
DX: Z12.2 Encounter for screening for malignant neoplasm of respiratory organs (principal); Z87.891 Personal history of nicotine dependence; R06.02 Shortness of breath; R05.9 Cough, unspecified
CPT/HCPCS: 71271

== ENCOUNTER 2025-03-01 08:43 | Outpatient (CLI) | payer MEDICARE, OTHER, SELFPAY ==
[2025-03-01 09:26] LABS: Alanine Aminotransferase 14 U/L (6-50); Albumin Level 3.8 g/dL (3.5-5.1); Alkaline Phosphatase 113 U/L (38-126); Anion Gap 5 mmol/L (4-12); Aspartate Amino Transferase 24 U/L (17-59); Bilirubin,Total 0.4 mg/dL (0.2-1.3); Blood Urea Nitrogen 24 mg/dL (9-20); Calcium 9.5 mg/dL (8.4-10.2); Carbon Dioxide 30 mmol/L (22-30); Chloride 99 mmol/L (98-107); Estimated Glomerular Filt Rate 48; Glucose 99 mg/dL (65-110); Osmolality Calculated 282 mOsm/kg (285-295); Sodium 134 mmol/L (137-145); Total Protein 6.6 g/dL (6.3-8.2)
[2025-03-01 09:57] LABS: Prostate Specific Antigen 9.3 ng/mL (< OR = 4.0)
== END 2025-03-01 08:44 | disposition home or self-care (01) ==
PROVIDERS: PCP Nurse Practitioner Family; Visit Provider Urology
DX: R97.20 Elevated prostate specific antigen [PSA] (principal); N40.1 Benign prostatic hyperplasia with lower urinary tract symptoms
CPT/HCPCS: 36415; 80053; 84153; G0103

== ENCOUNTER 2025-06-06 15:29 | Outpatient (CLI) | payer MEDICARE, OTHER, SELFPAY ==
--- OUTSIDE RECORDS SUMMARY | 2025-06-06 15:35 | XMS_ITS | Clinical Summary ---
Author Organization [facility] Address [address] [place] [address] Care Team Providers Care Sound Mixer Name Role Phone Colton Emanuel MD Primary Care Provider [phone] Noé Lam MD Unavailable [phone] Allergies No known active allergies Medications PROAIR [...] Problem Noted Date Diagnosed Date Nonischemic cardiomyopathy ([facility]) Current smoker 05/29/2020 S/P AAA (abdominal aortic aneurysm) repair 10/23 Dilated cardiomyopathy ([facility]) 020 AAA (abdominal aortic aneurysm) COPD (chronic obstructive pu lmonary disease) ([facility]) Benign essential HTN Mixed hyperlipidemia CAD (coronary [...] series) 2021 COVID-19 Vaccine (2023-2 5 season) 2025 Meningococcal B Vaccine Aged Out No l onger eligible based on patient's age to complete this topic Meningococcal Vaccine Aged Out No ariella teresa eligible based on patient's age to complete this topic RSV Immunizations Under 20 Months Aged Out No longer eligible based on patient's age to complete this topic Insurance RAILROAD MEDICARE RAILROAD MEDICARE Care Teams Sound Mixer Relationship Specialty Start Date End Date Colton Emanuel MD [address] [place] [address] PCP - General FAMILY PRACTICE 01/01/19 Noé Lam MD [address] [place] [address] Picher Cash On Delivery Clerk CARDIOVASCULAR DISEASE 01/01/19
--- OUTSIDE RECORDS SUMMARY | 2025-06-06 15:35 | XMS_ITS | Clinical Summary ---
Author Organization [facility] Address [address] [place] [address] Care Team Providers Care Timber Treatment Plant Operator Name Role Phone Unavailable Primary Care Provider Unavailabl e Source Comments [facility],non-owned Affiliates and Associated Physician Practices is amultiple site organization consisting of ambulatory clinics and hospital sitesin [place], [place], [place] and [place]. This disclosure is being madepursuant to the Care Everywhere program and may not contain all information available regarding this patient. Last updated 18.[facility] [place] Allergies No known active allergies Medications * Be aware that medications may not be up to date on this document. Alwaysverify current medications with the patient. allopurinol (Zyloprim) 100 MG tablet Take 1 (one) tablet by mouth once daily Active azelastine (Astelin) 0.1 % nasal spray [place] 1 (one) spray into each nostril 2 [...] and heating? Not hard at all 09/05/2023 [facility] [place] of Occupat ional Health - Occupational Stress [...] on file Legal Sex Male 10:39 PM PLATFORM BEATER Gender Identity Not on file Sexual Orientation Not on file Last Filed Vital Signs Vital Sign Reading Time Taken Comments Blood Pressure 93/57 09/13/2023 4:02 PM PLATFORM BEATER Pulse 95 09/13/2023 4:02 PM PLATFORM BEATER Temperature 36.2 C (97.2 F) 09/13/2023 4:02 PM PLATFORM BEATER Respiratory Rate 18 09/13/2023 4:02 PM PLATFORM BEATER Oxygen Saturation 95% 09/13/2023 4:02 PM PLATFORM BEATER Inhaled Oxygen Concentration 40% 09/06/2023 1 0:02 AM PLATFORM BEATER Weight 116 kg (255 lb 11.2 oz) 09/12/2023 4:00 A M PLATFORM BEATER Height 182.9 cm (6') 09/07/2023 8:00 PM PLATFORM BEATER Body Mass Index 34.68 09/07/2023 8:00 PM PLATFORM BEATER Plan of Treatment Health Maintenance Due Date Last Done Comments MEDICARE AWV 12 MONTHS 1945 HEPATITIS C SCREENING 12/06[birth year]1964 DTAP/TDAP/TD VACCINES (1 - Tdap) 1965 PNEUMOCOCCAL VACCINE 50+ (1 of 2 - PCV) 1965 ZOSTER VACCINE (1 of 2) 1996 Respiratory Syncytial Virus (RSV) Vaccine Pt: or over 60 yrs (1 - 1-dose 75+ series) 2021 DEPRESSION SCREENING 09/05/2024 COVID-19 VACCINE (2023-2 5 season) 2025 INFLUENZA VACCINE (#1) 2025 HEPATITIS B VACCINE Aged Out No [...]
--- OUTSIDE RECORDS SUMMARY | 2025-06-06 15:35 | XMS_ITS | Encounter Summary ---
Author Organization [facility] Address [address] [place] [address] Care Team Providers Care Wastewater Treatment Plant Instructor Name Role Phone Colton Emanuel MD Primary Care Provider [phone] Noé Lam MD Unavailable [phone] Encounter Details Date Type Department Care Team (Late st Contact Info) Description 02/23/2019 Abstract [facility] [address] [place] [address] Noé Lam MD [address] [place] [address] Social History Tobacco Use Types [...] Gout, unspecified COPD (chronic obstructive pulmonary disease) ([facility]) Chronic airway obstruction, not elsewhere classified Benign essential HTN Essential hypertension, benign Abdominal aortic aneurysm (AAA) without rupture documented in this encounter Care Teams Wastewater Treatment Plant Instructor Relationship Specialty Start Date End Date Colton Emanuel MD [address] [place] [address] PCP - General FAMILY PRACTICE 01/01/19 Noé Lam MD [address] [place] [address] [place] Coping Machine Operator CARDIOVASCULAR DISEASE 01/01/19 documented as of this encounter
--- OUTSIDE RECORDS SUMMARY | 2025-06-06 15:35 | XMS_ITS | Clinical Summary ---
Author Organization [facility] Address [address] [place] [phone] Phone Care Team Providers Care Typesetting Supervisor Name Role Phone Erlin Al MD Primary Care Provider [phone] Allergies No known active allergies Medications allopurinol [...] Date Smoking Tobacco: Every Day Cigarettes 2 63.8 Started: [birth year]/29/1960 Comments:sometimes smokes1.5 PPD, average most of his life 2 PPD Alcohol Use Standard Drinks/Week Comments Yes 0 (1 standard drink = 0.6 oz pur e alcohol) occ Sex and Gender Information Value Date Recorded Sex Assigned at Not on file Legal Sex Male 3:47 AM SEWER PIPE LAYER HELPER Gender Identity Not on file Sexual Orientation Not on file Occupation Industry Job Start Date Job End Date Not on file Not on file Not on file Not on file Last Filed Vital Signs Vital Sign Reading Time Taken Comments Blood Pressure 164/90 09/02/2013 12:50 PM SEWER PIPE LAYER HELPER Pulse 93 09/02/2013 2:34 PM SEWER PIPE LAYER HELPER Temperature 36.9 C (98.4 F) 09/02/2013 12:50 PM SEWER PIPE LAYER HELPER Respiratory Rate 16 09/02/2013 2:34 PM SEWER PIPE LAYER HELPER Oxygen Saturation 95% 09/02/2013 2:34 PM SEWER PIPE LAYER HELPER Inhaled Oxygen Concentration - - Weight 128.5 kg (283 lb 6.4 oz) 09/02/2013 3:50 AM SEWER PIPE LAYER HELPER Height 182.9 cm (6') 08/29/2013 5:31 PM SEWER PIPE LAYER HELPER Body Mass Index 38.44 08/29/2013 5:31 PM SEWER PIPE LAYER HELPER Plan of Treatment Health Maintenance Due Date Last Done Comments DTAP/TDAP/TD VACCINES (1 - Tdap) 1965 PNEUMOCOCCAL VACCINE 50+ YEARS (1 of 2 - PCV) 12/11/18 66 ZOSTER VACCINE (1 of 2) 1996 RSV VACCINE (60+ or ) (1 - 1-dose 75+ series) 2021 INFLUENZA VACCINE (#1) 2025 Insurance MEDICARE RAILROAD [facility] OPTIONS PPO [id number] [facility] AAR [id number] Advance Directives For more information, please contact: [phone] * Full Code (Latest Code Status on File) Date Activated Date Inactivated Comments 08/29/2013 5:40 PM 09/02/2013 6:15 PM * Full Code Date Activated Date Inactivated Comments 08/29/2013 5:39 PM 08/29/2013 5:40 PM Care Teams Typesetting Supervisor Relationship Specialty Start Date End Date Erlin Al MD [address] [place] [phone] PCP - General Surgery 08/29/13
--- NOTE | 2025-06-06 15:37 | ECG_ITS ---
Test Date: 2025-06-06 15:47:13 Measurements Intervals [place] Rate: 92 P: 69 [place]: 199 QRS: 66 QRSD: 97 T: 76 QT: 338 QTc: 418 Interpretive Statements SINUS RHYTHM CANNOT R/O SEPTAL INFARCT, AGE INDETERMINATE ABNORMAL ECG No previous ECG available for comparison Electronically Signed On 06-06-2025 16:14:00 CDT by Javier Odonnell D.O.
== END 2025-06-06 15:30 | disposition home or self-care (01) ==
LOC: CHSCARD 15:33
PROVIDERS: PCP Nurse Practitioner Family; Visit Provider Internal Medicine Cardiovascular Disease
DX: R06.00 Dyspnea, unspecified (principal); R94.31 Abnormal electrocardiogram [ECG] [EKG]
CPT/HCPCS: 93005

== ENCOUNTER 2025-07-09 12:51 | Outpatient (CLI) | payer MEDICARE, OTHER, SELFPAY ==
--- NOTE | 2025-07-09 12:56 | ECHO_ITS ---
Patient Info Name: Rony Ferreira Age: 79 years : 1945 Gender: Male Ht: 72 in Wt: 247 lbs BSA: 2.42 m2 HR: 63 bpm BP: 130 / 62 mmHg Technical Quality: Good Exam Date: 07/09/2025 1:40 PM Patient Status: O Admit Date: 07/09/2025 Exam Type: CA echo doppler color flow Complete two-dimensional, color flow and Doppler transthoracic echocardiogram is performed. Car Builder: Vilma Cole Attending Provider: Javier Odonnell DO Summary 1. Complete two-dimensional, color flow and Doppler transthoracic echocardiogram is performed. 2. Left ventricular chamber dimension is normal. 3. Left ventricular systolic function is normal, estimated at 55-60. 4. The left ventricular diastolic function is grade I diastolic dysfunction. 5. E/e' 11 is mildly elevated. 6. The aortic valve is not well visualized. Cannot determine number of aortic valve leaflets. 7. There is trace tricuspid valve regurgitation. Left Ventricle E/e' 11 is mildly elevated. Left ventricular chamber dimension is normal. Left ventricular systolic function is normal, estimated at 55-60. The left ventricular diastolic function is grade I diastolic dysfunction. Right Ventricle Right ventricular chamber dimension is normal. Right ventricular systolic function is normal and with normal TAPSE 2.4 cm. Left Atria Left atrial chamber dimension is normal. Right Atria Right atrial chamber dimension is normal. Aortic Valve The aortic valve is not well visualized. Cannot determine number of aortic valve leaflets. There is no aortic valve stenosis. There is no aortic valve regurgitation. Pulmonic Valve There is no pulmonic regurgitation. Mitral Valve There is no mitral valve stenosis. There is no mitral valve regurgitation. Tricuspid Valve There is trace tricuspid valve regurgitation. RVSP is not measured due to an inadequate TR jet. Pericardium/Pleural There is no pericardial effusion. Inferior Vena Cava Normal inferior vena cava with >50% collapse upon inspiration consistent with normal right atrial pressure, 5 mmHg. Aorta The aortic root size at the sinus of Valsalva is normal. Left Ventricular Outflow Tract Name Value Normal LVOT 2D LVOT Diameter 2.0 cm LVOT Doppler LVOT Peak Velocity 88 cm/s LVOT Peak Gradient 3 mmHg LVOT Mean Gradient 2 mmHg LVOT VTI 22 cm LVOT Stroke Volume 71 ml LVOT CO 4.5 l/min LVOT CI 1.8 l/min/m2 Pulmonic Valve Name Value Normal RVOT Doppler RVOT Peak Velocity 69 cm/s RVOT Peak Gradient 2 mmHg PV Doppler PV Peak Velocity 85 cm/s PV Peak Gradient 3 mmHg Mitral Valve Name Value Normal MV Diastolic Function MV E Peak Velocity 59 cm/s MV A Peak Velocity 85 cm/s MV E/A 0.7 MV Decel Time (PW) 297 ms MV Annular TDI MV E/e' (Septal) 10.1 MV E/e' (Lateral) 12.2 MV E/e' (Average) 11.1 Tricuspid Valve Name Value Normal Estimated PAP/RSVP RA Pressure 5 mmHg <=5 Aortic Valve Name Value Normal AV Doppler AV Peak Velocity 119 cm/s AV Peak Gradient 6 mmHg AV Area (Cont Eq Kristopher) 2.4 cm2 AV DI (Kristopher) 0.74 AV Regurgitation 2D LVOT Area 3.2 cm2 Ventricles Name Value Normal LV Dimensions 2D/MM IVS Diastolic Thickness (2D) 1.1 cm 0.6-1.0 LVID Diastole (2D) 4.6 cm 4.2-5.8 LVIW Diastolic Thickness (2D) 0.8 cm 0.6-1.0 LVID Systole (2D) 2.7 cm 2.5-4.0 LVOT Diameter 2.0 cm LV Mass (2D Cubed) 138.63 g 88.00-224.00 LV Mass Index (2D Cubed) 57 g/m2 49-115 Relative Wall Thickness (2D) 0.33 <=0.42 LV Fractional Shortening/Ejection Fraction 2D/MM LV Fractional Shortening (2D) 41 % 25-43 LV EF (2D Teichholz) 72 % LV Diastolic Volume (4C MOD) 118 ml LV EF (4C MOD) 58 % LV Diastolic Volume (2C MOD) 96 ml LV EF (2C MOD) 59 % LV Diastolic Volume (BP MOD) 107 ml 62-150 LV Diastolic Volume Index (BP MOD) 44 ml/m2 34-74 LV Systolic Volume (BP MOD) 47 ml 21-61 LV Systolic Volume Index (BP MOD) 19 ml/m2 11-31 LV EF (BP MOD) 56 % 52-72 LV Diastolic Length (4C) 8.3 cm LV Systolic Length (4C) 6.4 cm LV Stroke Volume (4C MOD) 68 ml Atria Name Value Normal LA Dimensions LA Volume (4C A-L) 30 ml LA Volume (BP A-L) 33 ml RA Dimensions RA Systolic Major [place] Length (4C) 4.5 cm 2.1-2.7 RA Area (4C) 12.1 cm2 <=18.0 Report Signatures
--- OUTSIDE RECORDS SUMMARY | 2025-07-09 14:32 | XMS_ITS | Encounter Summary ---
Author Organization [facility] Address [address] [place] [address] Care Team Providers Care Control Tower Operator Name Role Phone Colton Emanuel MD Primary Care Provider [phone] Noé Lam MD Unavailable [phone] Encounter Details Date Type Department Care Team (Late st Contact Info) Description 02/23/2019 Abstract [facility] [address] [place] [address] Noé Lam MD [address] [place] [address] Social History Tobacco Use Types [...] Gout, unspecified COPD (chronic obstructive pulmonary disease) ([facility] HHS[facility]HCC) Chronic airway obstruction, not elsewhere classified Benign essential HTN Essential hypertension, benign Abdominal aortic aneurysm (AAA) without rupture documented in this encounter Care Teams Control Tower Operator Relationship Specialty Start Date End Date Colton Emanule MD [address] [place] [address] PCP - General FAMILY PRACTICE 01/01/19 Noé Lam MD [address] [place] [address] [place] Paraffin Machine Operator CARDIOVASCULAR DISEASE 01/01/19 documented as of this encounter
--- OUTSIDE RECORDS SUMMARY | 2025-07-09 14:32 | XMS_ITS | Clinical Summary ---
Author Organization [facility] Address [address] [place] [phone] Phone Care Team Providers Care Shoe Designer Name Role Phone Erlin Al MD Primary Care Provider Allergies No known active allergies Medications allopurinol [...] Date Smoking Tobacco: Every Day Cigarettes 2 63.9 Started: 08/29/1960 Comments:sometimes smokes1.5 PPD, average most of his life 2 PPD Alcohol Use Standard Drinks/Week Comments Yes 0 (1 standard drink = 0.6 oz pur e alcohol) occ Sex and Gender Information Value Date Recorded Sex Assigned at Not on file Legal Sex Male 3:47 AM COTTON EXPERT Gender Identity Not on file Sexual Orientation Not on file Occupation Industry Job Start Date Job End Date Not on file Not on file Not on file Not on file Last Filed Vital Signs Vital Sign Reading Time Taken Comments Blood Pressure 164/90 09/02/2013 12:50 PM COTTON EXPERT Pulse 93 09/02/2013 2:34 PM COTTON EXPERT Temperature 36.9 C (98.4 F) 09/02/2013 12:50 PM COTTON EXPERT Respiratory Rate 16 09/02/2013 2:34 PM COTTON EXPERT Oxygen Saturation 95% 09/02/2013 2: 34 PM COTTON EXPERT Inhaled Oxygen Concentration - - Weight 128.5 kg (283 lb 6.4 oz) 09/02/2013 3:50 AM COTTON EXPERT Height 182.9 cm (6') 08/29/2013 5:31 PM COTTON EXPERT Body Mass Index 38.44 08/29/2013 5:31 PM COTTON EXPERT Plan of Treatment Health Maintenance Due Date Last Done Comments DTAP/TDAP/TD VACCINES (1 - Tdap) 1965 PNEUMOCOCCAL VACCINE 50+ YEARS (1 of 2 - PCV) 12/11/18 66 ZOSTER VACCINE (1 of 2) 1996 RSV VACCINE (60+ or ) (1 - 1-dose 75+ series) 2021 INFLUENZA VACCINE (#1) 2025 Insurance MEDICARE RAILROAD [facility] OPTIONS PPO [id number] [facility] AAR [id number] Advance Directives For more information, please contact: [phone] * Full Code (Latest Code Status on File) Date Activated Date Inactivated Comments 08/29/2013 5:40 PM 09/02/2013 6:15 PM * Full Code Date Activated Date Inactivated Comments 08/29/2013 5:39 PM 08/29/2013 5:40 PM Care Teams Shoe Designer Relationship Specialty Start Date End Date Erlin Al MD [address] [place] [phone] PCP - General Surgery 08/29/13
--- OUTSIDE RECORDS SUMMARY | 2025-07-09 14:32 | XMS_ITS | Clinical Summary ---
Author Organization [facility] Address [address] [place] [address] Care Team Providers Care Goodwill Representative Name Role Phone Unavailable Primary Care Provider Unavailabl e Source Comments [facility],non-owned Affiliates and Associated Physician Practices is amultiple site organization consisting of ambulatory clinics and hospital sitesin [place], [place], [place] and [place]. This disclosure is being madepursuant to the Care Everywhere program and may not contain all information available regarding this patient. Last updated 18.[facility] Allergies No known active allergies Medications * Be aware that medications may not be up to date on this document. Alwaysverify current medications with the patient. allopurinol (Zyloprim) 100 MG tablet Take 1 (one) tablet by mouth once daily Active azelastine (Astelin) 0.1 % nasal spray [place] 1 (one) spray into each nostril 2 [...] and heating? Not hard at all 09/05/2023 [facility] [place] of Occupat ional Health - Occupational Stress [...] place to sleep or slept in a detention (including now)? Patient unable to answer 09/05/2023 Sex and Gender Information Value Date Recorded Sex Assigned at Not on file Legal Sex Male 10:39 PM TELEPHONE CLAIMS REPRESENTATIVE Gender Identity Not on file Sexual Orientation Not on file Last Filed Vital Signs Vital Sign Reading Time Taken Comments Blood Pressure 93/57 09/13/2023 4:02 PM TELEPHONE CLAIMS REPRESENTATIVE Pulse 95 09/13/2023 4:02 PM TELEPHONE CLAIMS REPRESENTATIVE Temperature 36.2 C (97.2 F) 09/13/2023 4:02 PM TELEPHONE CLAIMS REPRESENTATIVE Respiratory Rate 18 09/13/2023 4:02 PM TELEPHONE CLAIMS REPRESENTATIVE Oxygen Saturation 95% 09/13/2023 4:02 PM TELEPHONE CLAIMS REPRESENTATIVE Inhaled Oxygen Concentration 40% 09/06/2023 1 0:02 AM TELEPHONE CLAIMS REPRESENTATIVE Weight 116 kg (255 lb 11.2 oz) 09/12/2023 4:00 A M TELEPHONE CLAIMS REPRESENTATIVE Height 182.9 cm (6') 09/07/2023 8:00 PM TELEPHONE CLAIMS REPRESENTATIVE Body Mass Index 34.68 09/07/2023 8:00 PM TELEPHONE CLAIMS REPRESENTATIVE Plan of Treatment Health Maintenance Due [...]
--- OUTSIDE RECORDS SUMMARY | 2025-07-09 14:32 | XMS_ITS | Clinical Summary ---
Author Organization [facility] Address [address] [place] [address] Care Team Providers Care Tile Layer Name Role Phone Colton Emanuel MD Primary Care Provider [phone] Noé Lam MD Unavailable Allergies No known active allergies Medications PROAIR [...] Problem Noted Date Diagnosed Date Nonischemic cardiomyopathy 05/29/2020 Current smoker 05/29/2020 S/P AAA (abdominal aortic aneurysm) repair 10/23 Dilated cardiomyopathy 10/23/2019 AAA (abdominal aortic aneurysm) COPD (chronic obstructive pulmonary disease) Benign essential HTN Mixed hyperlipidemia CAD (coronary [...] - 1-dose 75+ series) 2021 COVID-19 Vaccine (2024-2 6 season) 2025 Influenza Adult (#1) 2025 Hepatitis A Vaccines Aged Out No long er eligible based on patient's age to complete this topic Meningococcal B Vaccine Aged Out No l onger eligible based on patient's age to complete this topic Meningococcal Vaccine Aged Out No ariella teresa eligible based on patient's age to complete this topic RSV Immunizations Under 20 Months Aged Out No longer eligible based on patient's age to complete this topic Insurance RAILROAD MEDICARE RAILROAD MEDICARE Care Teams Tile Layer Relationship Specialty Start Date End Date Colton Emaneul MD [address] [place] [address] PCP - General FAMILY PRACTICE 01/01/19 Noé Lam MD [address] [place] [address] [place] Water Analyst CARDIOVASCULAR DISEASE 01/01/19
== END 2025-07-09 12:52 | disposition home or self-care (01) ==
LOC: CHSIMG 12:53
PROVIDERS: PCP Nurse Practitioner Family; Visit Provider Internal Medicine Cardiovascular Disease
DX: R06.00 Dyspnea, unspecified (principal)
CPT/HCPCS: 93306

== ENCOUNTER 2025-08-12 10:05 | Outpatient (CLI) | payer MEDICARE, OTHER, SELFPAY ==
[2025-08-12 10:47] LABS: Alanine Aminotransferase 14 U/L (6-50); Albumin Level 4.2 g/dL (3.5-5.1); Alkaline Phosphatase 130 U/L (38-126); Anion Gap 8 mmol/L (4-12); Aspartate Amino Transferase 21 U/L (17-59); Bilirubin,Total 0.2 mg/dL (0.2-1.3); Blood Urea Nitrogen 29 mg/dL (9-20); Calcium 9.9 mg/dL (8.4-10.2); Carbon Dioxide 29 mmol/L (22-30); Chloride 100 mmol/L (98-107); Estimated Glomerular Filt Rate 39; Glucose 104 mg/dL (65-110); Osmolality Calculated 289 mOsm/kg (285-295); Potassium 4.7 mmol/L (3.4-5.0); Sodium 137 mmol/L (137-145); Total Protein 6.8 g/dL (6.3-8.2)
[2025-08-12 11:17] LABS: Prostate Specific Antigen 11.4 ng/mL (< OR = 4.0)
== END 2025-08-12 10:06 | disposition home or self-care (01) ==
PROVIDERS: PCP Nurse Practitioner Family
DX: R97.20 Elevated prostate specific antigen [PSA] (principal); N40.1 Benign prostatic hyperplasia with lower urinary tract symptoms
CPT/HCPCS: 36415; 80053; 84153